=== PATIENT | male | born 1970 | race Caucasian/White ===

== ENCOUNTER 2020-06-02 06:07 | Emergency (ER) | payer BC, SELFPAY ==
[2020-06-02 06:08] VITALS: BP 182/103; PULSE 89; RESP 17; TEMP 36.6; O2SAT 97; BMI 25.9
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
[2020-06-02] MEDS: Smz/Tmp Ds Tablet 1 TABLET PO (06:26)
[2020-06-02] MEDS: Naproxen 500 MG Tablet PO (06:26)
[2020-06-02] MEDS: Cephalexin 250 MG Capsule 500 MG PO (06:26)
[2020-06-02] MEDS: BACITRACIN 15 GM Tube 1 APPLIC TOPICAL (06:35)
[2020-06-02 06:52] VITALS: BP 154/74; PULSE 78; RESP 18; O2SAT 98
== END 2020-06-02 06:52 | disposition home or self-care (01) ==
LOC: ED 06:33
PROVIDERS: Emergency Provider Emergency Medicine
DX: T22.20XA Burn of second degree of shoulder and upper limb, except wrist and hand, unspecified site, initial encounter (principal); X08.8XXA Exposure to other specified smoke, fire and flames, initial encounter; Y93.9 Activity, unspecified; Y92.9 Unspecified place or not applicable; F17.200 Nicotine dependence, unspecified, uncomplicated
CPT/HCPCS: 99283

== ENCOUNTER 2021-09-25 16:46 | Emergency (ER) | payer BC, SELFPAY ==
[2021-09-25 16:47] VITALS: BP 155/109; PULSE 114; RESP 16; TEMP 36.7; O2SAT 100; BMI 26.5
--- NOTE | 2021-09-25 17:07 | CT_ITS ---
EXAM: CT ABDOMEN AND PELVIS WITH INTRAVENOUS CONTRAST CLINICAL INDICATION: abdominal pain TECHNIQUE: Helically acquired images were obtained of the abdomen and pelvis with intravenous contrast. This CT exam was performed using one or more of the following dose reduction techniques: automated exposure control, adjustment of the mA and/or kV according to patient size, and/or use of iterative reconstruction technique. This report was created using [employer] report generation technology. CONTRAST: IV 100mL Isovue-370 COMPARISON: None. FINDINGS: LOWER THORAX: Small right pleural effusion. Mild cardiomegaly. Lung bases are clear. ABDOMEN: LIVER: Heterogeneous attenuation of the liver but no discrete focal mass. The portal vein enhances although there is some heterogeneous enhancement at the portal confluence, likely unopacified flow artifact. GALLBLADDER AND BILE DUCTS: Unremarkable. No calcified gallstones. No gallbladder distention or wall edema. No intra- or extrahepatic biliary ductal dilation. PANCREAS: Unremarkable. No focal cystic or solid mass. SPLEEN: Unremarkable. Normal size without focal cystic or solid mass. ADRENALS: Unremarkable. No nodules. KIDNEYS AND URETERS: Unremarkable. Normal renal size and position. No hydronephrosis. STOMACH AND BOWEL: Unremarkable. No stomach or bowel distention. No focal inflammatory change. PELVIS: APPENDIX: The appendix is not seen. BLADDER: Unremarkable. REPRODUCTIVE: Prostate calcifications. ABDOMEN and PELVIS: INTRAPERITONEAL SPACE: Moderate volume ascites. No free air. BONES/JOINTS: Degenerative changes of the lumbar spine, particularly at L5-S1. No suspicious lytic or blastic abnormality. SOFT TISSUES: Small inguinal hernias. VASCULATURE: See above. LYMPH NODES: Unremarkable. No enlarged lymph nodes. CT/Abdomen/Pelvis W IV Cont ONLY IMPRESSION: 1. Moderate volume ascites. 2. Small right pleural effusion. 3. Mild cardiomegaly. Electronically Signed: Jovany Saucedo MD ([place]) at 18:28 EST , Service support ,
--- NOTE | 2021-09-25 17:09 | EDS_ITS ---
HPI History of Present Illness Chief Complaint: Abd Pain Informant: patient Narrative Narrative: 50-year-old male presents the emergency room with abdominal pain. Patient states sometimes he has pain on his abdomen and sometimes it goes up high. He states that he feels bloated in his abdomen is firm. Symptoms have been present for about 7 days. Over the past couple days he has noted some constipation. He denies any urinary symptoms. States that the abdomen being bloated makes it hard for him to breathe and now he notes some lower extremity swelling. He denies any prior abdominal surgeries. He has not had colonoscopy. No recent weight loss. PFSH PFSH Home Medications cephalexin 500 mg PO Q6 #40 cap 06/02/20 [Rx Last Taken Unknown] naproxen 500 mg PO BID PRN PRN #20 tab 06/02/20 [Rx Last Taken Unknown] sulfamethoxazole-trimethoprim 1 tab PO BID #20 tab 06/02/20 [Rx Last Taken Unknown] furosemide [Lasix] 20 mg PO DAILY #30 tab 09/25/21 [Rx Last Taken Unknown] oxycodone-acetaminophen 1 tab PO Q6H PRN PRN 3 Days #12 tablet 09/25/21 [Rx Last Taken Unknown] potassium chloride 20 meq PO DAILY #30 tab 09/25/21 [Rx Last Taken Unknown] spironolactone [Aldactone] 25 mg PO DAILY #30 tab 09/25/21 [Rx Last Taken Unknown] Allergy/AdvReac Type Severity Reaction Status Date / Time No Known Allergies Allergy Verified 09/25/21 16:49 Social History (Updated 09/25/21 @ 17:[address] Prabhjot Starks, DO) Smoking Status: Current every day smoker tobacco type: cigarettes alcohol intake: current alcohol intake frequency: 3 or more drinks per day [facility] ED Constitutional Constitutional ED: Denies chills or weight loss Eyes Eyes: Denies change in vision or diplopia ENT ENT ED: Denies ear pain, rhinorrhea or sore throat Cardiovascular Cardiovascular: Denies chest pain, orthopnea, palpitations or racing heartbeat Respiratory/Chest Respiratory/Chest: Denies cough, dyspnea or orthopnea Gastrointestinal Gastrointestinal: Reports abdominal pain, constipation and nausea; Denies diarrhea or vomiting Genitourinary Genitourinary ED: Denies dysuria, hematuria or urinary frequency Musculoskeletal Musculoskeletal: Denies arthralgias or myalgias Integumentary Denies abscess or rash Neurologic Neurologic: Denies headache(s) or weakness Psychiatric Psychiatric: Denies anxiety, depression, suicidal ideation or suicidal thoughts Endocrine Endocrinology: Denies polydipsia, polyphagia or polyuria Allergic/Immunologic Allergic/Immunologic ED: Denies mouth swelling, tongue swelling or urticaria EXAM Physical Exam Const Vital Signs: 09/25/21 16:47 09/25/21 19:03 Temperature 98.0 F Temperature Source Temporal Pulse Rate 114 H 96 Respiratory Rate 16 16 Blood Pressure 155/109 H 127/97 H Blood Pressure Mean 124 107 Pulse Ox 100 100 Oxygen Delivery Method Room Air Room Air Positive well nourished and well developed General Appearance ED: well developed HEENT Reports normocephalic, head/scalp atraumatic, TM's clear and moist mucous membranes Negative for trauma Tympanic Membrane ED: Yes TM's clear Eyes PERRL and EOMs intact bilaterally Neck no lymphadenopathy, supple and no JVD Resp normal respiratory effort and clear to auscultation bilaterally Cardio regular rate and no murmurs Rate: tachycardic GI GI Narrative: Abdomen feels moderately distended and firm. Hypoactive bowel sounds. Tenderness left lower quadrant Back/Spine no CVA tenderness and normal ROM Extremity normal to inspection General Extremety ED: Negative for edema General Extremity: Negative for edema Neuro oriented x3 and CN's II-XII intact bilaterally Sensorium / Orientation: alert Motor Exam: strength 5/5 throughout Psych mental status grossly normal Mood & Affect: Negative for depressed or tearful Skin no rashes or lesions noted and no wounds MDM MDM MDM Narrative Medical decision making narrative: White count 5.8 with a hemoglobin 13.8 platelet count is 169. Glucose 239 with lactic acid of 2. Total bilirubin is 1.7 direct bilirubin 0.5. Alk phos is 86. Patient received pain and nausea medication. CT of the abdomen pelvis demonstrates ascites and a heterogeneous appearance to the liver. I spoke with her web operations specialist Dr. Kenny. He recommends starting the patient on Lasix K-Dur and Aldactone and he will see the patient this week in the office. I will also write for pain medication. Lab Data Attestation: I reviewed the patient's lab results. Labs: Laboratory Results - last 24 hr 09/25/21 09/25/21 09/25/21 17:30 17:30 17:30 WBC 5.8 RBC 5.00 Hgb 13.8 Hct 42.5 MCV 85.0 MCH 27.6 MCHC 32.5 RDW Std Deviation 40.9 RDW Coeff of Shaun 13.2 Plt Count 169 MPV 10.9 Immature Gran % (Auto) 0.300 Neut % (Auto) 69.5 Lymph % (Auto) 21.7 [place] % (Auto) 7.1 Eos % (Auto) 0.7 Baso % (Auto) 0.7 Absolute Neuts (auto) 4.0 Absolute Lymphs (auto) 1.25 Nucleated RBC % 0 Sodium 132 L Potassium 4.2 Chloride 99 Carbon Dioxide 25.0 Anion Gap 8 BUN 11 Creatinine 1.05 Estim Creat Clear Calc 88.84 Est GFR (MDRD) Af Amer 97 Est GFR (MDRD) Non-Af 80 BUN/Creatinine Ratio 10.5 Glucose 239 H Lactic Acid 2.0 Calcium 9.2 Total Bilirubin 1.70 H Direct Bilirubin 0.51 H AST 14 L ALT 11 L Alkaline Phosphatase 86 Total Protein 7.2 Albumin 3.5 Globulin 3.7 Lipase 97 Radiography Diagnostic Testing: Clinical Impression(s) from Imaging Studies Abdomen/Pelvis CT 09/25/21 17:07 IMPRESSION: 1. Moderate volume ascites. 2. Small right pleural effusion. 3. Mild cardiomegaly. Electronically Signed: Jovany Saucedo MD ([place]) at 18:28 EST , Service support , Discharge Plan Triage Chief Complaint: Abd Pain ED Provider: Prabhjot Starks Dx/Rx/DC Orders Clinical Impression: Abdominal ascites, Pleural effusion, Cirrhosis of liver Instructions: ED Ascites Prescriptions: New furosemide [Lasix] 20 mg tablet 20 mg PO DAILY Qty: 30 RF: 0 spironolactone [Aldactone] 25 mg tablet 25 mg PO DAILY Qty: 30 RF: 0 potassium chloride 20 mEq tablet extended release 20 meq PO DAILY Qty: 30 RF: 0 oxycodone-acetaminophen [oxycodone-acetaminophen] 1 TABLET tablet 1 tab PO Q6H PRN PRN (Reason: Pain) 3 Days Qty: 12 RF: 0 No Action sulfamethoxazole-trimethoprim 1 TABLET tablet 1 tab PO BID Qty: 20 RF: 0 cephalexin 500 MG capsule 500 mg PO Q6 Qty: 40 RF: 0 naproxen 500 MG tablet 500 mg PO BID PRN PRN (Reason: Pain Score 4-10/10) Qty: 20 RF: 0 Primary Care Provider: Care Physician,No Primary Referrals: Friend,Red, DO [STAFF PHYSICIAN] - As soon as possible Care Physician,No Primary [Primary Care Provider] - Disposition Disposition: Home, Self Care
[2021-09-25] MEDS: Ondansetron 4 MG/2 ML Vial IV (17:30)
[2021-09-25] MEDS: Morphine 4 MG/ML Syringe IV (17:30)
[2021-09-25] MEDS: 0.9% Normal Saline 1,000 ML 125 ML IV (17:30)
[2021-09-25 17:38] LABS: Absolute Lymphocyte Count 1.25 X10^3/uL (0.83-4.51); Basophil# 0.04 X10^3/uL; Basophil% 0.7 % (0-1); Eosinophil# 0.04 X10^3/uL; Eosinophils% 0.7 % (0-5); Hematocrit 42.5 % (40-54); Hemoglobin 13.8 g/dL (13.0-16.5); Lymphocyte # 1.25 X10^3/ul (0.83-4.51); Lymphocyte % 21.7 % (19-41); Mean Corp Hgb Conc 32.5 g/dL (32-36); Mean Corpuscular Hgb 27.6 pg (27.0-32.0); Mean Platelet Vol. 10.9 fl (6.2-12.0); Monocyte# 0.41 X10^3/uL; Monocyte% 7.1 % (0-10); NRBC Flagged by Analyzer 0 % (0-5); Neutrophil % 69.5 % (47-70); Platelet Count 169 K/mm3 (150-450); RBC Distribution Width CV 13.2 % (11.6-14.6); RBC Distribution Width SD 40.9 fl (35.1-43.9); White Blood Count 5.8 K/mm3 (4.4-11.0)
[2021-09-25 17:54] LABS: AST(SGOT) 14 U/L (15-37); Alanine Aminotransfer ALT/SGPT 11 U/L (16-61); Albumin, Serum 3.5 g/dL (3.2-5.0); Alkaline Phosphatase 86 U/L (45-117); Anion Gap 8 (5-15); BUN 11 mg/dL (7-18); BUN/Creat Ratio 10.5 RATIO (10-20); Bilirubin, Direct 0.51 mg/dL (0.00-0.30); Calcium,Total 9.2 mg/dL (8.5-10.1); Chloride 99 mmol/L (98-107); Creatinine, Serum 1.05 mg/dL (0.70-1.30); EST Glomerular Filtration Rate 80 mL/min (>60); Est Glom Filt Rate - Afr Amer 97 mL/min (>60); Estimated Creatinine Clearance 88.84 ml/min; Globulin 3.7 g/dL (2.2-4.2); Glucose 239 mg/dL (74-106); Lipase 97 U/L (73-393); Potassium 4.2 mmol/L (3.5-5.1); Protein, Total 7.2 g/dL (6.4-8.2); Sodium Level 132 mmol/L (136-145)
[2021-09-25 19:03] VITALS: BP 127/97; PULSE 96; RESP 16; O2SAT 100
[2021-09-25 20:35] LABS: Reflex Lactate? N
== END 2021-09-25 20:02 | disposition home or self-care (01) ==
PROVIDERS: Emergency Provider Emergency Medicine
DX: R18.8 Other ascites (principal); J90 Pleural effusion, not elsewhere classified; K74.60 Unspecified cirrhosis of liver; K59.00 Constipation, unspecified; F17.210 Nicotine dependence, cigarettes, uncomplicated
CPT/HCPCS: 74177; 80048; 80076; 83605; 83690; 85025; 96361; 96374; 96375; 99283; J7030; Q9967; A4216; J2405

== ENCOUNTER → 2021-09-30 16:47 | Outpatient (CLI) | payer BC, SELFPAY ==
[2021-09-30 17:10] LABS: Absolute Lymphocyte Count 1.08 X10^3/uL (0.83-4.51); Absolute Neutrophil Count 2.6 X10^3/uL (2.0-7.7); Basophil# 0.03 X10^3/uL; Basophil% 0.7 % (0-1); Eosinophil# 0.06 X10^3/uL; Eosinophils% 1.5 % (0-5); Hematocrit 40.6 % (40-54); Lymphocyte # 1.08 X10^3/ul (0.83-4.51); Lymphocyte % 26.7 % (19-41); Mean Corpuscular Hgb 27.4 pg (27.0-32.0); Mean Corpuscular Volume 85.7 fL (80-94); Mean Platelet Vol. 10.1 fl (6.2-12.0); Monocyte# 0.32 X10^3/uL; Monocyte% 7.9 % (0-10); NRBC Flagged by Analyzer 0 % (0-5); Neutrophil # 2.55 X10^3/uL (2.7-7.7); Platelet Count 167 K/mm3 (150-450); RBC Distribution Width CV 13.2 % (11.6-14.6); RBC Distribution Width SD 41.4 fl (35.1-43.9); Red Blood Count 4.74 M/mm3 (4.6-6.2); White Blood Count 4.1 K/mm3 (4.4-11.0)
[2021-09-30 17:29] LABS: International Normalized Ratio 1.2; Prothrombin Time (Protime)PT. 14.6 SECONDS (11.7-14.9)
[2021-09-30 17:30] LABS: Erythrocyte Sedimentation Rate 4 mm/hr (0-20)
[2021-09-30 17:45] LABS: AST(SGOT) 14 U/L (15-37); Alanine Aminotransfer ALT/SGPT 13 U/L (16-61); Albumin, Serum 3.6 g/dL (3.2-5.0); Alkaline Phosphatase 84 U/L (45-117); Anion Gap 7 (5-15); BUN 15 mg/dL (7-18); CRP 7.07 mg/L (0.0-3.0); Calcium,Total 9.2 mg/dL (8.5-10.1); Chloride 100 mmol/L (98-107); Creatinine, Serum 1.07 mg/dL (0.70-1.30); EST Glomerular Filtration Rate 78 mL/min (>60); Est Glom Filt Rate - Afr Amer 95 mL/min (>60); Globulin 3.7 g/dL (2.2-4.2); Glucose 165 mg/dL (74-106); LDH 222 U/L (87-241); Potassium 4.2 mmol/L (3.5-5.1); Protein, Total 7.3 g/dL (6.4-8.2); Sodium Level 134 mmol/L (136-145)
[2021-10-04 16:08] LABS: Anti-Centromere B Ab <0.2 AI (0.0-0.9); Anti-Chromatin <0.2 AI (0.0-0.9); Anti-Jo <0.2 AI (0.0-0.9); Anti-Scleroderma-70 AB <0.2 AI (0.0-0.9); RNP Ab <0.2 AI (0.0-0.9); SJOGREN'S Anti-SS-A test < 0.2 AI (0.0-0.9); SJOGREN'S Anti-SS-B test < 0.2 AI (0.0-0.9); Smith Ab <0.2 AI (0.0-0.9)
[2021-10-05 09:20] LABS: Anti-Mitochondrial AB <20.0 Units (0.0-20.0); Anti-dsDNA Ab <1 IU/mL (0-9)
[2021-10-07 00:06] LABS: Angiotensin Convert Enzyme 63 U/L (14-82); Ceruloplasmin 35.9 mg/dL (16.0-31.0); Cytoplasmic Ab (C-ANCA) <1:20 titer (Neg:<1:20); Dilute Prothrombin Time (dPT) 42.8 sec (0.0-47.6); Dilute Russell Viper Venom 38.5 sec (0.0-47.0); HEPATITIS B SURFACE AG Negative (Negative); Hepatitis A IgM Antibody Negative (Negative); Hepatitis B Core AB IgM Negative (Negative); Immunoglobulin A 252 mg/dL (90-386); Immunoglobulin E 75 IU/mL (6-495); Immunoglobulin G 993 mg/dL (603-1613); Immunoglobulin M 52 mg/dL (20-172); PTT-LA 34.2 sec (0.0-51.9); Protein S, Free 118 % (61-136); Thrombin Time 17.6 sec (0.0-23.0); dPT Confirm Ratio 0.88 Ratio (0.00-1.34)
[2021-10-07 10:26] LABS: Anti-Smooth Muscle ABS 5 Units (0-19); Antithrombin 3 Function 100 % (75-135); Copper, Serum or Plasma 156 ug/dL (69-132); Hep C Antibodies 0.1 s/co ratio (0.0-0.9); Perinuclear Ab (P-ANCA) <1:20 titer (Neg:<1:20); Protein S, Total 89 % (60-150)
[2021-10-07 10:27] LABS: Interpretation Comment: (.)
== END ==
PROVIDERS: Visit Provider Internal Medicine Gastroenterology
DX: K74.60 Unspecified cirrhosis of liver (principal)
CPT/HCPCS: 80053; 80074; 81241; 82164; 82390; 82525; 82784; 82785; 83516; 83615; 85025; 85300; 85305; 85306; 85610; 85652; 86140; 86225; 86235; 86256

== ENCOUNTER 2021-10-13 16:05 | Outpatient (CLI) | payer BC, SELFPAY ==
--- NOTE | 2021-10-13 16:08 | EKG12_ITS ---
Test Reason : PREOP Blood Pressure : / mmHG Vent. Rate : 099 BPM Atrial Rate : 099 BPM P-R Int : 176 ms QRS Dur : 104 ms QT Int : 388 ms P-R-T Axes : 071 014 089 degrees QTc Int : 497 ms Normal sinus rhythm Nonspecific T wave abnormality Prolonged QT Abnormal ECG Confirmed by HOMERO WHEELER, MYA ([id number]), general expeditor ROMY FUNG ([id number]) on 10/14/2021 10:49:29 AM Referred By: Red Kenny Confirmed By:MYA VALENTIN MD
== END 2021-10-13 23:59 | disposition short-term general hospital (02) ==
LOC: PSN 16:07
PROVIDERS: Referring Provider Internal Medicine Gastroenterology; Visit Provider Internal Medicine Gastroenterology
DX: K74.60 Unspecified cirrhosis of liver (principal); R18.8 Other ascites
CPT/HCPCS: 93005

== ENCOUNTER 2021-10-20 07:51 | Outpatient (CLI) | payer BC, SELFPAY ==
--- NOTE | 2021-10-20 07:53 | US_ITS ---
STUDY: ABDOMINAL ULTRASOUND - RIGHT UPPER QUADRANT REASON FOR VISIT: Male, 50 years old cirrhosis TECHNIQUE: Ultrasound evaluation of the right upper quadrant was performed with real-time and static lynne-scale imaging. TECHNICAL QUALITY: Adequate. COMPARISON: None. FINDINGS: Liver: The liver measures 16.7 cm. There is a heterogeneous echogenicity of the liver. The bile ducts are within normal limits. There is hepatic color flow. The direction of portal flow is hepatopetal. There is no demonstrated mass lesion. Gallbladder: Normal distended gallbladder. The gallbladder wall measures 2 mm. There is a negative sonographic Harris''s sign. There is no pericholecystic fluid. There are no gallstones. Small amount of sludge is seen in the gallbladder lumen. Common Bile Duct (C.B.D.): The common bile duct measures 3 mm. Pancreas: Normal size of the head, body of the pancreas. The tail portion is obscured due to overlying bowel gas. There is normal echogenicity of the pancreas. There is no demonstrated pancreatic mass or cyst. Right Kidney: Normal size of the right kidney. The right kidney measures 11 cm x 5.3 cm x 4.9 cm. Normal renal cortex. The right cortex measures 1.9 cm. There is no demonstrated renal mass or cyst. There is no right hydronephrosis. IMPRESSION: Small amount of sludge is seen in the gallbladder lumen. Electronically Signed: Carl Chiu MD at 14:04 EST , Service support , STUDY: ABDOMINAL ULTRASOUND - ELASTOGRAPHY REASON FOR VISIT: Male, 50 years old. History of cirrhosis. TECHNIQUE: Liver stiffness measurements were obtained on a rankur 85 ultrasound machine using a CA 1-7 probe following the SRU guidelines. 3 measurements were obtained using a 2-D-SWE method. The IQR/M was 6.8 % suggesting a quality data set. TECHNICAL QUALITY: Adequate. COMPARISON: Comparison is made with prior study done earlier today. FINDINGS: Liver: Heterogeneous appearance of the liver. Median liver stiffness measured 26 kPa. US/Abdomen Limited IMPRESSION: Liver stiffness measures 26 kPa compatible with F4 Metavir score. Electronically Signed: Carl Chiu MD at 14:06 EST , Service support ,
== END 2021-10-20 23:59 | disposition short-term general hospital (02) ==
LOC: US 07:52
PROVIDERS: Referring Provider Internal Medicine Gastroenterology; Visit Provider Internal Medicine Gastroenterology
DX: K74.60 Unspecified cirrhosis of liver (principal); R18.8 Other ascites
CPT/HCPCS: 76705; 76982

== ENCOUNTER 2021-10-22 10:47 | Inpatient (IN) | payer BC, SELFPAY ==
[2021-10-22] VITALS (15 sets, daily range): BP systolic 94–131; BP diastolic 52–95; PULSE 91–147; RESP 12–20; TEMP 36.3–36.9; O2SAT 98–100; BMI 24.3; BMI 24.5
--- NOTE | 2021-10-22 10:59 | EKG12_ITS ---
Test Reason : CHEST HEAVINESS Blood Pressure : / mmHG Vent. Rate : 142 BPM Atrial Rate : 284 BPM P-R Int : 000 ms QRS Dur : 094 ms QT Int : 272 ms P-R-T Axes : 265 -74 068 degrees QTc Int : 418 ms Atrial flutter Left axis deviation Abnormal ECG Confirmed by DANNY WHEELER, JENY ([id number]), publishing editor SEBASTIÁN GARAY ([id number]) on 10/25/2021 11:03:15 AM Referred By: RAINA/VAIBHAV Confirmed By:JENY DELGADO MD
--- NOTE | 2021-10-22 11:00 | EKG12_ITS ---
Test Reason : REPEAT Blood Pressure : / mmHG Vent. Rate : 099 BPM Atrial Rate : 297 BPM P-R Int : 000 ms QRS Dur : 102 ms QT Int : 354 ms P-R-T Axes : 000 067 096 degrees QTc Int : 454 ms Atrial flutter with variable A-V block ST & T wave abnormality, consider lateral ischemia Abnormal ECG Confirmed by DANNY WHEELER, JENY ([id number]), medical editor SEBASTIÁN GARAY ([id number]) on 10/25/2021 11:03:31 AM Referred By: RAINA Confirmed By:JENY DELGADO MD
[2021-10-22] MEDS: dilTIAZem 25 MG/5 ML Vial IV BOLUS (11:08)
--- NOTE | 2021-10-22 11:15 | RAD_ITS ---
STUDY: X-RAY CHEST REASON FOR EXAM: Male, 50 years old. Chest pain TECHNIQUE: Single AP portable view of the chest. COMPARISON: None. FINDINGS: EKG electrodes are seen. The lungs are clear and expanded. There is no demonstrated pleural abnormality. There is moderate cardiac enlargement. Normal mediastinum and fred. Normal visualized pulmonary arteries. Normal visualized aortic arch and descending thoracic aorta. Normal visualized thoracic spine. Normal visualized ribs, clavicles, and shoulders. There is no demonstrated abnormality of the visualized soft tissue structures of the upper abdomen. RAD/Chest 1 View (Portable) IMPRESSION: Cardiomegaly. Electronically Signed: Carl Chiu MD at 11:30 EST , Service support ,
[2021-10-22 11:17] LABS: Absolute Lymphocyte Count 1.26 X10^3/uL (0.83-4.51); Absolute Neutrophil Count 5.4 X10^3/uL (2.0-7.7); Basophil# 0.03 X10^3/uL; Basophil% 0.4 % (0-1); Eosinophil# 0.02 X10^3/uL; Eosinophils% 0.3 % (0-5); Hematocrit 41.9 % (40-54); Lymphocyte # 1.26 X10^3/ul (0.83-4.51); Lymphocyte % 17.4 % (19-41); Mean Corp Hgb Conc 33.4 g/dL (32-36); Mean Corpuscular Hgb 26.6 pg (27.0-32.0); Mean Corpuscular Volume 79.5 fL (80-94); Mean Platelet Vol. 11.1 fl (6.2-12.0); Monocyte# 0.51 X10^3/uL; NRBC Flagged by Analyzer 0 % (0-5); Neutrophil % 74.6 % (47-70); Platelet Count 116 K/mm3 (150-450); RBC Distribution Width CV 13.2 % (11.6-14.6); RBC Distribution Width SD 36.8 fl (35.1-43.9); Red Blood Count 5.27 M/mm3 (4.6-6.2); White Blood Count 7.2 K/mm3 (4.4-11.0)
[2021-10-22 11:31] LABS: D-Dimer Quantitative (DVT/PE) 1.46 FEU/ug/m (0.27-0.49)
--- NOTE | 2021-10-22 11:32 | EDS_ITS ---
HPI HPI - GI History of Present Illness Chief Complaint: Abd Pain Narrative Narrative: 50-year-old male presenting with chest pain. He states he feels like there is pressure in his chest. He also states that he is having trouble taking a deep breath due to his abdomen being able. History of cirrhosis and ascites. He has been seen by Dr. Kenny. He recently had a CT of the abdomen pelvis which showed ascites I did show concern for cardiomegaly and a small pleural effusion. Patient is on Lasix and spironolactone currently. He has a history of hypertension and hyperlipidemia. He denies cardiac history. Patient has not had fever, chills. His states he looks a little more jaundiced today. [facility] Medical History (Updated 10/22/21 @ 13:26 by ALINE Simmons) Abdominal ascites High cholesterol Hypertension Home Medications furosemide 20 mg tablet 40 mg PO DAILY #60 tab 09/30/21 [Rx Last Taken Unknown] spironolactone 25 mg tablet 50 mg PO DAILY #60 tab 09/30/21 [Rx Last Taken Unknown] Allergy/AdvReac Type Severity Reaction Status Date / Time No Known Allergies Allergy Verified 09/25/21 16:49 Family History (Updated 10/22/21 @ 13:23 by Vandana Bird NP-C) Father Myocardial infarction Heart disease Social History (Updated 10/22/21 @ 13:23 by Vandana Bird NP-C) Smokeless tobacco user: chewing tobacco alcohol intake: former year quit: 2020 substance use type: marijuana ROS ROS ED Constitutional Constitutional ED: Denies chills or fever(s) ENT ENT ED: Denies rhinorrhea or sore throat Cardiovascular Cardiovascular: Reports chest pain, palpitations and racing heartbeat Respiratory/Chest Respiratory/Chest: Reports dyspnea; Denies cough or sputum Gastrointestinal Gastrointestinal: Reports abdominal pain; Denies nausea or vomiting Genitourinary Genitourinary ED: Denies dysuria or hematuria Musculoskeletal Musculoskeletal: Denies arthralgias or myalgias Integumentary Reports other Details: Jaundice ; Denies Abrasions or rash Neurologic Neurologic: Denies headache(s) or paresthesias EXAM Physical Exam Const Vital Signs: 10/22/21 10:49 10/22/21 10:59 10/22/21 11:10 Temperature 97.3 F L Temperature Source Temporal Pulse Rate 147 H 146 H Respiratory Rate 18 20 H Blood Pressure 131/87 H 119/95 H Blood Pressure Mean 101 103 Pulse Ox 100 100 99 Oxygen Delivery Method Room Air Room Air Room Air 10/22/21 11:21 10/22/21 12:12 Temperature Temperature Source Pulse Rate 103 H 100 Respiratory Rate 18 Blood Pressure 98/68 Blood Pressure Mean 78 Pulse Ox 100 Oxygen Delivery Method Positive well nourished Constitutional Narrative: Noted to be tachycardic. HEENT Reports dry mucous membranes normocephalic and atraumatic Mouth ED: Yes dry mucous membranes Mouth: dry mucous membranes Eyes PERRL and EOMs intact bilaterally General Eye ED: Negative for scleral icterus Neck no lymphadenopathy and supple Resp normal respiratory effort and clear to auscultation bilaterally Cardio Rate: tachycardic GI GI Narrative: Generalized tenderness palpation. Abdomen is not distended Extremity full ROM General Extremety ED: Negative for edema or tenderness General Extremity: Negative for edema Neuro Sensorium / Orientation: alert, oriented to person, oriented to place and oriented to time Psych mental status grossly normal Skin General Skin Exam: jaundice Rashes: no rashes MDM MDM MDM Narrative Medical decision making narrative: Patient noted to be tachycardic on my evaluation. EKG was obtained which showed atrial flutter at a rate of 114 bpm on my interpretation. Patient given Cardizem and lab work is drawn. After Cardizem heart rate is down to 99 and repeat EKG obtained which shows atrial flutter with variable AV block on my interpretation. Patient given 25 Cardizem and his heart rate did slow down to around 100. He feels improved. He still having some abdominal pain. I reviewed his CT of his abdomen pelvis does not show a source. I question whether it is an gastric ulcer. He does not appear to have a surgical abdomen. CBC is unremarkable. PT/INR normal. Creatinine slightly elevated 1.49. Glucose was 299, sodium 128. No anion gap. Lipase is normal. Total bilirubin is elevated above baseline at 2.40 with a direct of 0.69 which is also elevated. Chest x-ray on my interpretation shows no acute cardiopulmonary process but does show cardiomegaly. Radiologist agree. D-dimer was elevated at 1.46 and the patient had a CTA of the chest?abdomen?pelvis which does not show any dissection, pulmonary emboli. It does show diffuse fatty infiltration of the liver as well as subcarinal and pretracheal lymph node measuring 1.6. High-sensitivity troponin is 33. Given patient's new onset atrial flutter I believe he needs to be admitted to the hospital. I did speak with Dr. Kenny as this is his patient I did discuss the abnormal liver enzymes has had increased. He stated that he would probably want to do an upper endoscopy on him to make sure he does not have any esophageal varices before he would be anticoagulated for his atrial flutter. This was discussed with the hospitalist on admission. Impression: 1. New onset atrial flutter 2. Acute kidney injury 3. Chest pain 4. Abdominal pain 5. Elevated bilirubin Lab Data Labs: Laboratory Results - last 24 hr 10/22/21 10/22/21 10/22/21 11:05 11:05 11:05 WBC 7.2 RBC 5.27 Hgb 14.0 Hct 41.9 MCV 79.5 L MCH 26.6 L MCHC 33.4 RDW Std Deviation 36.8 RDW Coeff of Shaun 13.2 Plt Count 116 L MPV 11.1 Immature Gran % (Auto) 0.300 Neut % (Auto) 74.6 H Lymph % (Auto) 17.4 L [place] % (Auto) 7.0 Eos % (Auto) 0.3 Baso % (Auto) 0.4 Absolute Neuts (auto) 5.4 Absolute Lymphs (auto) 1.26 Nucleated RBC % 0 PT 14.3 INR 1.2 APTT 26.1 D-Dimer Quant (PE/DVT) 1.46 H* Sodium 128 L Potassium 4.2 Chloride 95 L Carbon Dioxide 24.0 Anion Gap 9 BUN 23 H Creatinine 1.49 H Estim Creat Clear Calc 62.60 Est GFR (MDRD) Af Amer 65 Est GFR (MDRD) Non-Af 53 L BUN/Creatinine Ratio 15.4 Glucose 299 H Calcium 9.8 Magnesium 2.0 Total Bilirubin 2.40 H Direct Bilirubin 0.69 H AST 21 ALT 20 Alkaline Phosphatase 103 Troponin I High Sens 33 Total Protein 8.2 Albumin 4.2 Globulin 4.0 Lipase 82 Radiography Diagnostic Testing: Clinical Impression(s) from Imaging Studies Chest X-Ray 10/22/21 11:15 IMPRESSION: Cardiomegaly. Electronically Signed: Carl Chiu MD at 11:30 EST , Service support , Chest/Abdomen/Pelvis CTA 10/22/21 12:01 IMPRESSION: Small amount of ascites as described. Diffuse fatty infiltration of the liver. Minimally enlarged subcarinal and pretracheal lymph node measuring 1.6 cm. Electronically Signed: Carl Chiu MD at 12:27 EST , Service support , Discharge Plan Triage Chief Complaint: Abd Pain ED Provider: Miguel Angel Martini Dx/Rx/DC Orders Prescriptions: No Action spironolactone [Aldactone] 25 mg tablet 50 mg PO DAILY Qty: 60 RF: 2 furosemide [Lasix] 20 mg tablet 40 mg PO DAILY Qty: 60 RF: 2 Primary Care Provider: Care Physician,No Primary
[2021-10-22 11:35] LABS: International Normalized Ratio 1.2; Prothrombin Time (Protime)PT. 14.3 SECONDS (11.7-14.9)
[2021-10-22 11:39] LABS: AST(SGOT) 21 U/L (15-37); Alanine Aminotransfer ALT/SGPT 20 U/L (16-61); Albumin, Serum 4.2 g/dL (3.2-5.0); Alkaline Phosphatase 103 U/L (45-117); Anion Gap 9 (5-15); BUN 23 mg/dL (7-18); BUN/Creat Ratio 15.4 RATIO (10-20); Bilirubin, Direct 0.69 mg/dL (0.00-0.30); Calcium,Total 9.8 mg/dL (8.5-10.1); Chloride 95 mmol/L (98-107); Creatinine, Serum 1.49 mg/dL (0.70-1.30); EST Glomerular Filtration Rate 53 mL/min (>60); Est Glom Filt Rate - Afr Amer 65 mL/min (>60); Glucose 299 mg/dL (74-106); Lipase 82 U/L (73-393); Potassium 4.2 mmol/L (3.5-5.1); Protein, Total 8.2 g/dL (6.4-8.2); Sodium Level 128 mmol/L (136-145); Troponin-I HS 33 pg/mL (3.0-78.0)
[2021-10-22] MEDS: fentaNYL 100 MCG/2 ML Ampul 25 MCG IV (11:53)
[2021-10-22] MEDS: 0.9% Normal Saline 1,000 ML 999 ML IV (11:54)
--- NOTE | 2021-10-22 12:01 | CT_ITS ---
STUDY: CTA CHEST AND CTA ABDOMEN/PELVIS WITH CONTRAST REASON FOR EXAM: Male, 50 years old. Chest pain. cirrhosis RADIATION DOSAGE (If Supplied By Facility): CTDIvol = ( 21.21 ) mGy, DLP = ( 828.76 ) mGycm TECHNIQUE: The examination was performed with the intravenous administration of IV 100mL Isovue-370. Post-processing of the angiographic images was performed, with multiplanar reformation and 3D reconstruction. Individualized dose optimization techniques were used for this CT. COMPARISON: No relevant priors. FINDINGS: CTA Chest Normal enhancement of the main pulmonary artery and right and left pulmonary arteries. Normal enhancement of the bilateral peripheral pulmonary arteries. There is no demonstrated pulmonary embolism. Normal thoracic aorta and visualized great vessels. There is no demonstrated aortic dissection. Normal heart and pericardium. Minimally enlarged pretracheal and subcarinal lymph nodes measuring 1.6 cm. Normal hilar regions. Normal visualized trachea and bronchi. The lungs are well expanded. Normal pulmonary parenchyma. Normal pleura. Normal chest wall structures. Normal osseous structures. Normal visualized upper abdomen. CT Abdomen T Pelvis Minimal amount of perihepatic and perisplenic fluid. Diffuse fatty infiltration of the liver. Densities are seen within the gallbladder lumen. This may represent either sludge or tiny gallstones. There is evidence of a gallbladder wall thickening. Normal spleen. Normal pancreas. Normal bilateral adrenal glands. Minimal amount of the fluid in the right perirenal space. Small amount of fluid in the right paracolic gutter. Moderate amount of fluid is seen in the pelvis. Normal left kidney. Normal visualized stomach. Normal small intestine. Normal colon. The appendix is visualized and appears normal. Normal abdominal aorta. Normal inferior vena cava. There is borderline retroperitoneal lymphadenopathy with enlarged nodes no greater than 10mm in the short axis diameter. Mild degree of diffuse bladder wall thickening although bladder is not completely distended. There are prostatic calcifications. Normal abdominal wall. There are degenerative changes of the visualized lumbar spine. CT/CTA Chst, Abd, Pel W and/or WO IMPRESSION: Small amount of ascites as described. Diffuse fatty infiltration of the liver. Minimally enlarged subcarinal and pretracheal lymph node measuring 1.6 cm. Electronically Signed: Carl Chiu MD at 12:27 EST , Service support ,
[2021-10-22 13:12] LABS: Partial Thromboplast Time 26.1 Seconds (24.1-36.2)
--- NOTE | 2021-10-22 13:17 | HP.PCM_ITS ---
Documented by User: ALINE Simmons 10/22/21 13:34 HPI - General General Date of Admission: 10/22/21 Date of Service: 10/22/21 Chief Complaint: Abdominal pain HPI Narrative KIZZY DEWITT, is a 50 M who presents with complaints of abdominal pain. Patient states that is 10 out of 10 despite receiving 1 dose of fentanyl in the ER. Patient denies constipation or diarrhea however patient does report nausea and vomiting of mucus. Patient denies that emesis has any blood in it or is brown. Patient was also noted to be in atrial flutter with a rapid ventricular rate upon arrival and was given a Cardizem bolus. Patient denies history of any cardiac disease however he reports that his father at the age of 50 from a heart attack. Patient has been seeing Dr. Kenny outpatient for work-up of non alcoholic fatty liver disease. [facility] Medical History Abdominal ascites High cholesterol Hypertension Home Medications furosemide 20 mg tablet 40 mg PO DAILY #60 tab 09/30/21 [Rx Last Taken Unknown] spironolactone 25 mg tablet 50 mg PO DAILY #60 tab 09/30/21 [Rx Last Taken Unknown] Allergy/AdvReac Type Severity Reaction Status Date / Time No Known Allergies Allergy Verified 09/25/21 16:49 Family History Father Myocardial infarction Heart disease Surgical History no surgical history no surgical history Social History Smoking Status: Never smoker Smokeless tobacco user: chewing tobacco alcohol intake: former year quit: 2020 substance use type: marijuana ROS Constitutional Constitutional: Denies anorexia, chills, fatigue, fever(s) or weakness Cardiovascular Cardiovascular: Denies chest pain, edema, palpitations or syncope Respiratory/Chest Respiratory/Chest: Denies cough, shortness of breath at rest, shortness of breath with exertion or wheezing Gastrointestinal Gastrointestinal: Reports abdominal pain, nausea and vomiting; Denies constipation or diarrhea Genitourinary Genitourinary: Denies dysuria Musculoskeletal Musculoskeletal: Denies back pain, extremity pain, joint pain or joint stiffness Integumentary Integumentary: Denies dry skin Neurologic Neurologic: Denies abnormal gait, abnormal speech, confusion or focal weakness Psychiatric Psychiatric: Denies anxiety or depression Endocrine Endocrinology: Denies change in body appearance Vital Signs Vital Signs Vital Signs: 10/22/21 10:49 10/22/21 10:59 10/22/21 11:10 Temperature 97.3 F L Temperature Source Temporal Pulse Rate 147 H 146 H Respiratory Rate 18 20 H Blood Pressure 131/87 H 119/95 H Blood Pressure Mean 101 103 Pulse Ox 100 100 99 Oxygen Delivery Method Room Air Room Air Room Air 10/22/21 11:21 10/22/21 12:12 Temperature Temperature Source Pulse Rate 103 H 100 Respiratory Rate 18 Blood Pressure 98/68 Blood Pressure Mean 78 Pulse Ox 100 Oxygen Delivery Method Weight Weight: 170 lb Body Mass Index (BMI) 24.3 Physical Exam Const alert and oriented x3 General Appearance: cooperative HEENT normocephalic and head/scalp atraumatic Eyes conjunctivae normal and no scleral icterus Neck supple General: trachea midline Resp normal respiratory effort, normal air movement and clear to auscultation bilaterally Cardio S1 normal heart sound, S2 normal heart sound and peripheral pulses 2+ throughout Rate: tachycardic Rhythm: abnormal rhythm regularly irregular GI Auscultation: normoactive bowel sounds Palpation: tender epigastric and ascites Extremity normal capillary refill and no clubbing, cyanosis or edema General Extremity: no tenderness to palpation of joints or extremities Skin General Skin Exam: no breakdown and turgor normal Lesions: no lesions Rashes: no rashes Neuro no focal motor deficits and no sensory deficits noted Speech: speech normal Motor Exam: Negative for general weakness Psych thought process normal, cooperative and affect normal Appearance: appropriate Results Lab / Micro Data Result Diagrams: 10/22/21 11:05 10/22/21 11:05 Labs: Laboratory Results - last 24 hr 10/22/21 11:05: WBC 7.2, RBC 5.27, Hgb 14.0, Hct 41.9, MCV 79.5 L, MCH 26.6 L, MCHC 33.4, RDW Std Deviation 36.8, RDW Coeff of Shaun 13.2, Plt Count 116 L, MPV 11.1, Immature Gran % (Auto) 0.300, Neut % (Auto) 74.6 H, Lymph % (Auto) 17.4 L, Throckmorton % (Auto) 7.0, Eos % (Auto) 0.3, Baso % (Auto) 0.4, Absolute Neuts (auto) 5.4, Absolute Lymphs (auto) 1.26, Nucleated RBC % 0 10/22/21 11:05: Sodium 128 L, Potassium 4.2, Chloride 95 L, Carbon Dioxide 24.0, Anion Gap 9, BUN 23 H, Creatinine 1.49 H, Estim Creat Clear Calc 62.60, Est GFR (MDRD) Af Amer 65, Est GFR (MDRD) Non-Af 53 L, BUN/Creatinine Ratio 15.4, Glucose 299 H, Calcium 9.8, Magnesium 2.0, Total Bilirubin 2.40 H, Direct Bilirubin 0.69 H, AST 21, ALT 20, Alkaline Phosphatase 103, Troponin I High Sens 33, Total Protein 8.2, Albumin 4.2, Globulin 4.0, Lipase 82 10/22/21 11:05: PT 14.3, INR 1.2, APTT 26.1, D-Dimer Quant (PE/DVT) 1.46 H* Radiology Impression Chest X-Ray 10/22/21 11:15 IMPRESSION: Cardiomegaly. Electronically Signed: Carl Chiu MD at 11:30 EST , Service support , Chest/Abdomen/Pelvis CTA 10/22/21 12:01 IMPRESSION: Small amount of ascites as described. Diffuse fatty infiltration of the liver. Minimally enlarged subcarinal and pretracheal lymph node measuring 1.6 cm. Electronically Signed: Carl Chiu MD at 12:27 EST , Service support , Assessment & Plan Assessment/Plan (1) Abdominal pain: QUALIFIERS: Abdominal location: epigastric Qualified Code(s): R10.13 - Epigastric pain (2) Atrial flutter with rapid ventricular response: PLAN: 1. Atrial flutter with RVR -Admit to PCU -Metoprolol 25 mg p.o. twice daily initiated -Echocardiogram ordered -Vital signs per protocol -CBC, CMP, magnesium, phosphorus, TSH ordered for a.m. 2. Epigastric abdominal pain -Gastroenterology consulted, case discussed with Dr. Kenny by Dr. Garcia. -Patient initiated on pantoprazole twice daily -Dilaudid and Zofran ordered as needed 3. Hypotension -Multifactorial, possibly secondary to atrial flutter along with chronic use of furosemide and spironolactone -Patient initiated on normal saline 125 mL/h -Received 1 L bolus in ER 4. Hyponatremia and hypochloremia -Likely secondary to use of diuretics -CMP ordered daily -Normal saline 125 mL/h continuous 5. elevated D-dimer -CTA negative for pulmonary embolism 6. acute kidney injury -Likely secondary to chronic diuretic use -Furosemide on hold due to hypotension -CMP ordered daily trend 7. MILLAN -Due to hypotension patient furosemide will be held, continue spironolactone -Dr. Kenny following DVT prophylaxis-SCDs This patient was seen by Vandana Bird NP-C under the supervision of Dr. Garcia. 17 minutes spent in clinical coordination of patient's plan of care. Documented by User: Dr. Rolo Garcia DO 10/22/21 15:29 HPI - General General Date of Admission: 10/22/21 [facility] Medical History Abdominal ascites High cholesterol Hypertension Home Medications furosemide 20 mg tablet 40 mg PO DAILY #60 tab 09/30/21 [Rx Last Taken Unknown] spironolactone 25 mg tablet 50 mg PO DAILY #60 tab 09/30/21 [Rx Last Taken Unknown] Allergy/AdvReac Type Severity Reaction Status Date / Time No Known Allergies Allergy Verified 09/25/21 16:49 Family History Father Myocardial infarction Heart disease Surgical History no surgical history Social History Smoking Status: Never smoker Smokeless tobacco user: chewing tobacco alcohol intake: former year quit: 2020 substance use type: marijuana Results Lab / Micro Data Result Diagrams: 10/22/21 11:05 01/14/22 11:05 Charges/Coding Addendum Addendum: Patient was seen and examined independently of Nydia Bird, he came to the ER today at [facility] with complaints of mid epigastric pain, this started today. He denies any diarrhea. He is being seen by a gang drill press operator regarding fatty liver disease, he is scheduled to undergo a liver biopsy in the near future. On examination he appeared uncomfortable due to midepigastric abdominal pain. Vital signs as documented. Skin warm and dry and without overt rashes. Neck without JVD, neck was supple, trachea midline, thyroid was normal. Lungs clear bilaterally, normal air movement was noted. Heart exam notable for irregular rhythm, normal sounds and absence of murmurs, rubs or gallops. Abdomen moderately tender to palpation, no rebound abdominal tenderness was noted. Bowel sounds are present, abdomen is not distended. Extremities nonedematous, no cyanosis was noted, no clubbing was noted. Neuro: Cranial nerves II through XII are grossly intact, no focal motor deficits were noted, sensation to light touch and pinprick intact, motor exam 5/5 throughout. Psych: Patient is alert and oriented x3, he does not appear anxious or depressed, he does not appear agitated. Patient's EKG showed atrial flutter with a poorly controlled rate of approximately 120-130, labs showed a low sodium at 128, chloride was 95, creatinine was elevated at 1.49, BUN was 23, glucose was 299, bilirubin was elevated at 2.4, lipase was 82. Patient had a CTA of his chest and abdomen, small amount of ascites was noted, there is fatty infiltration of the liver, there were minimally enlarged subcarinal and peritracheal lymph nodes. Patient was given IV Cardizem in the emergency room and an attempt to slow his rate down, this was only partially successful, patient appeared comfortable however. Gastroenterology was contacted by the emergency room physician and agrees to see the patient in consultation for possible EGD. I also talked with gastroenterology about this. Patient will not be anticoagulated due concerns at the etiology of his abdominal pain could be peptic ulcer disease. Patient will be placed in observation status on PCU, rate limiting agents will be given to the patient, he will be n.p.o., gastroenterology will be consulted, he will have an echocardiogram. Impression: #1 new onset atrial flutter with rapid ventricular response-patient will be placed on a beta-sayra, other rate limiting medications may have to be used depending on how he responds to medications. Echocardiogram will be ordered, patient will not be anticoagulated at this time #2 midepigastric abdominal pain-etiology unclear, I am concerned that he could have peptic ulcer disease, patient will be placed on IV PPI, he will be seen in consultation by gastroenterology. Patient will be n.p.o. for now #3 fatty liver disease-patient is being worked up for possible cirrhosis at this time by gastroenterology. #4 elevated glucose-perhaps patient has undiagnosed type 2 diabetes, I will get a hemoglobin A1c on the patient if 1 has not already been obtained in the last couple of months in the medical record. I have reviewed Nydia Bird's history and physical including her medical assessment and plan of care and with the above additions endorse it. Total clinical time spent by myself on this patient: 58 minutes.
[2021-10-22] MEDS: Ondansetron 4 MG/2 ML Vial IV ×2 (13:33→16:33)
[2021-10-22] MEDS: fentaNYL 100 MCG/2 ML Ampul 50 MCG IV (13:33)
[2021-10-22 13:36] LABS: Troponin-I HS 35 pg/mL (3.0-78.0)
--- NOTE | 2021-10-22 15:01 | ECHOD_ITS ---
Reason For Study: AFIB/FLUTTER Procedure This was a 2D Doppler, Color Flow transthoracic echocardiogram. The exam was of adequate technical quality. Exam performed portable in patient room. Left Ventricle Severely dilated left ventricle. D shaped septum in systole and diastole. Severe global left ventricular systolic dysfunction. The estimated ejection fraction is 10 %. Unable to assess diastolic dysfunction. Right Ventricle Normal RV size. Normal systolic function. Atria The left atrium is mildly enlarged. The right atrium is mildly enlarged. No doppler evidence for ASD. Mitral Valve There is no mitral annular calcification. Mild papillary muscle dysfunction of the mitral valve. Moderately severe (3+) mitral valve insufficiency. Tricuspid Valve Normal tricuspid valve. Moderate (2+) tricuspid valve insufficiency. Right ventricular systolic pressure estimated to be 43 mmHg. Aortic Valve Trisinus/trileaflet aortic valve. Normal aortic valve. Trivial aortic valve insufficiency. Pulmonic Valve The pulmonic valve is not well visualized. Mild (1+) pulmonic valve insufficiency. Great Vessels Borderline enlarged aortic root. Pericardium/Pleural No pericardial effusion. MMode/2D Measurements & Calculations LVIDd: 6.5 cm IVSd: 0.80 cm Ao root diam: 3.9 cm LVIDs: 5.9 cm LVPWd: 0.78 cm RVDd: 4.6 cm FS: 9.4 % LAV(MOD-bp): 89.5 ml LVAd ap4: 50.0 cm2 LVAd ap2: 62.4 cm2 LAV(MOD-bp) Indexed: 45.8 ml/m2 LVLd ap4: 10.5 cm LVLd ap2: 10.4 cm LAV(MOD-sp2): 89.0 ml EDV(MOD-sp4): 194.4 ml EDV(MOD-sp2): 308.8 ml LAV(MOD-sp4): 90.2 ml EDV(sp4-el): 203.0 ml EDV(sp2-el): 317.3 ml LVAs ap4: 43.6 cm2 LVAs ap2: 55.6 cm2 LVLs ap4: 9.8 cm LVLs ap2: 10.3 cm ESV(MOD-sp4): 160.5 ml ESV(MOD-sp2): 255.8 ml ESV(sp4-el): 163.8 ml ESV(sp2-el): 254.5 ml EF(MOD-sp4): 17.4 % EF(MOD-sp2): 17.2 % EF(sp4-el): 19.3 % SV(MOD-sp4): 33.9 ml SV(MOD-sp2): 53.1 ml SV(sp4-el): 39.2 ml LA dimension(2D): 5.2 cm LA A4 area: 26.3 cm2 RA A4 area: 24.2 cm2 Doppler Measurements & Calculations Ao V2 max: 78.4 cm/sec LV V1 max: 56.8 cm/sec PA V2 max: 52.8 cm/sec Ao max P.6 mmHg LV V1 max P.4 mmHg PI end-d maynor: 137.9 cm/sec TR max maynor: 264.1 cm/sec TR max P.9 mmHg ECHO/Echo Complete Interpretation Summary Severely dilated left ventricle. Severe global left ventricular systolic dysfunction. The estimated ejection fraction is 10 %. D shaped septum in systole and diastole. The left atrium is mildly enlarged. The right atrium is mildly enlarged. Mild papillary muscle dysfunction of the mitral valve. Moderately severe (3+) mitral valve insufficiency. Moderate (2+) tricuspid valve insufficiency. Trivial aortic valve insufficiency. Mild (1+) pulmonic valve insufficiency. Borderline enlarged aortic root. Right ventricular systolic pressure estimated to be 43 mmHg. Unable to assess diastolic dysfunction. Ordering Physician: Vandana Bird Performed By: Annika Cole, RDCS, RVT
--- NOTE | 2021-10-22 15:12 | PCS.PANDOC ---
PANDEMIC DOCUMENTATION INITIATED: Date: 05/24/2021 Time: 190
[2021-10-22] MEDS: dilTIAZem 25 MG/5 ML Vial 15 MG IV BOLUS (15:51)
[2021-10-22] MEDS: Metoprolol Tartrate 25 MG Tablet 75 MG PO (15:51)
[2021-10-22] MEDS: 0.9% Normal Saline 1,000 ML 125 ML IV ×2 (16:01→23:08)
[2021-10-22] MEDS: Acetaminophen 325 MG Tablet 650 MG PO (17:21)
[2021-10-22] MEDS: Digoxin 250 MCG/ML Ampul 500 MCG IV (17:22)
--- NOTE | 2021-10-22 18:06 | US_ITS ---
STUDY: ABDOMINAL ULTRASOUND REASON FOR EXAM: Male, 50 years old. ABDOMINAL PAIN History, Signs T Symptoms Portal vein/hepatic vein thrombosis -- assess for cholecystitis too please TECHNIQUE: Transabdominal ultrasound was performed with real-time and static lynne scale imaging. COMPARISON: None. FINDINGS: Liver: There is increased echogenicity consistent with fatty infiltration. The bile ducts are within normal limits. There is hepatic color flow. The direction of portal flow is hepatopetal. There is no demonstrated mass lesion. Gallbladder: Normal distended gallbladder. The gallbladder wall measures 4.5 mm. There is a negative sonographic Harris''s sign. There is pericholecystic fluid. There are no gallstones. Common Bile Duct (C.B.D.): The common bile duct measures ( in mm): 6 Pancreas: Normal size of the head and body of the pancreas. There is increased echogenicity of the pancreas. There is no demonstrated pancreatic mass or cyst. Spleen: Normal size of the spleen. The spleen measures 11.5 cm. Right Kidney: Normal size of the right kidney. The right kidney measures 10.6 cm. .There is a normal cortex of the kidney. There is no demonstrated renal mass or cyst. There is no right hydronephrosis. Left Kidney: Normal size of the left kidney. The left kidney measures 9.7 cm. . There is a normal cortex of the left kidney. There is no demonstrated renal mass or cyst. There is no left hydronephrosis. 6.4 mm stone in the left renal cortex Aorta: 23 mm in maximal aortic diameter. I.V.C.: The IVC is patent. There is moderate ascites. US/Abdomen Complete IMPRESSION: There is moderate ascites. There is pericholecystic fluid. Thick gallbladder wall. No visualized portal vein thrombosis. Fatty liver Electronically Signed: Chet Shi MD at 20:27 EST , Service support ,
--- NOTE | 2021-10-22 18:12 | CON.PCM.GI_ITS ---
HPI Consult Data Date of Consult: 10/22/21 HPI Narrative HPI Narrative: 50 M who presents with complaints patient said that he was okay on Monday night. He said he only ate onion rings and went to bed. He says that he has not drink any alcohol since I have seen him in office. in excruciating pain. Is started with midepigastric pain has not moved and did not go to work he woke up. It did not go to his shoulder. It did not radiate to his back. He just is in the mid epigastric area. When he came into the ED for evaluation he was noted to be an atrial flutter with a heart rate to 150BPM. His biochemical analysis that showed mildly elevated D-dimer. A CT angio of the chest and abdomen pelvis did not show any abnormalities except for mild ascites around the liver. I had seen him on consultation approximately a month ago for new onset ascites and abdominal pain along with a distended abdomen with bilateral lower extremity edema. His CT scan that he had previously had showed large volume ascites around the liver and throughout the abdomen. He was started on Lasix 20 mg as spironolactone and his abdomen has been decreasing in size. A FibroScan was ordered and it showed an F4 consistent with possible cirrhosis. He is sched uled to get a liver biopsy on 10/25/2021. At this time he is having a lot of abdominal pain causing him to be in sinus tachycardia with intermittent atrial flutter. [facility] Medical History (Updated 10/22/21 @ 18:[address] Moon Friend, DO) Abdominal ascites High cholesterol Hypertension Home Medications furosemide 20 mg tablet 40 mg PO DAILY #60 tab 09/30/21 [Rx Last Taken 10/22/21] spironolactone 25 mg tablet 50 mg PO DAILY #60 tab 09/30/21 [Rx Last Taken 10/22/21] Allergy/AdvReac Type Severity Reaction Status Date / Time No Known Allergies Allergy Verified 09/25/21 16:49 Family History Father Myocardial infarction Heart disease Surgical History no surgical history Social History Smoking Status: Never smoker Smokeless tobacco user: chewing tobacco alcohol intake: former year quit: 2021 substance use type: marijuana ROS Gastrointestinal Gastrointestinal: Reports abdominal pain and cramping Physical Exam Const alert General Appearance: cooperative Orientation / Consciousness: oriented to person HEENT hearing grossly normal bilaterally Head and Scalp: normal to inspection Face and Sinus: face symmetric Nose: external nose normal Mouth: oral and palatal mucosa normal Eyes conjunctivae normal General Eye: normal appearance of both eyes Neck full ROM General: normal visual inspection Lymph Lymphatic: no lymphadenopathy noted Chest inspection of chest normal and palpation of chest normal Chest: symmetrical chest wall rise Resp normal respiratory effort Effort and Inspection: able to speak in complete sentences Cardio regular rate GI non-distended GI Narrative: Mildly tender to palpation in the midepigastric area Percussion: normal to percussion Rectal Exam: deferred Neuro Speech: speech normal Gait (Neuro): normal gait Lab / Micro Data Result Diagrams: 10/22/21 11:05 10/22/21 11:05 Labs: Laboratory Results - last 24 hr 10/22/21 11:05: WBC 7.2, RBC 5.27, Hgb 14.0, Hct 41.9, MCV 79.5 L, MCH 26.6 L, MCHC 33.4, RDW Std Deviation 36.8, RDW Coeff of Shaun 13.2, Plt Count 116 L, MPV 11.1, Immature Gran % (Auto) 0.300, Neut % (Auto) 74.6 H, Lymph % (Auto) 17.4 L, Bradley % (Auto) 7.0, Eos % (Auto) 0.3, Baso % (Auto) 0.4, Absolute Neuts (auto) 5.4, Absolute Lymphs (auto) 1.26, Nucleated RBC % 0 10/22/21 11:05: Sodium 128 L, Potassium 4.2, Chloride 95 L, Carbon Dioxide 24.0, Anion Gap 9, BUN 23 H, Creatinine 1.49 H, Estim Creat Clear Calc 62.60, Est GFR (MDRD) Af Amer 65, Est GFR (MDRD) Non-Af 53 L, BUN/Creatinine Ratio 15.4, Glu cose 299 H, Calcium 9.8, Magnesium 2.0, Total Bilirubin 2.40 H, Direct Bilirubin 0.69 H, AST 21, ALT 20, Alkaline Phosphatase 103, Troponin I High Sens 33, Total Protein 8.2, Albumin 4.2, Globulin 4.0, Lipase 82 10/22/21 11:05: PT 14.3, INR 1.2, APTT 26.1, D-Dimer Quant (PE/DVT) 1.46 H* 10/22/21 13:05: Troponin I High Sens 35 Radiology Impression Chest X-Ray 10/22/21 11:15 IMPRESSION: Cardiomegaly. Electronically Signed: Carl Chiu MD at 11:30 EST , Service support , Chest/Abdomen/Pelvis CTA 10/22/21 12:01 IMPRESSION: Small amount of ascites as described. Diffuse fatty infiltration of the liver. Minimally enlarged subcarinal and pretracheal lymph node measuring 1.6 cm. Electronically Signed: Carl Chui MD at 12:27 EST , Service support , Assessment & Plan Assessment/Plan (1) Atrial flutter with rapid ventricular response: PLAN: Patient is not on any anticoagulation at this time and his heart rate is ranging from 100-1 30. I think this is likely secondary to pain. I am unsure the etiology of his pain at this time. His heart rate and blood pressure being managed by the hospitalist team at this time. (2) Abdominal ascites: PLAN: His CTA of the abdomen pelvis today showed diffuse fatty infiltration of the liver consistent with alcoholic steatohepatitis. There is a small amount ascites. I will order an ultrasound with Dopplers to see if there is any signs of portal vein or hepatic vein thrombosis as the etiology of his new onset ascites. (3) Abdominal pain: QUALIFIERS: Abdominal location: epigastric Qualified Code(s): R10.13 - Epigastric pain PLAN: I will also get an ultrasound to see if there is any signs of cholecystitis because gallbladder wall thickening was noted on the CT angiography. I will also order an ESR, CRP, LDH and repeat his D-dimer. He may need an upper endoscopy to evaluate his upper GI tract. Him and his okay with this plan we will continue PPI therapy and pain control. (4) Alcoholic steatohepatitis: PLAN: He is becoming thrombocytopenic which is more consistent with cirrhosis. He is scheduled to get a liver biopsy. Charges/Coding Visit Charges Inpatient E&M: 49659 Init Hosp L3
[2021-10-22] MEDS: HYDROmorphone 0.5 MG/0.5 ML SYRINGE IV (18:15)
[2021-10-22 18:50] LABS: LDH 162 U/L (87-241)
[2021-10-22 18:52] LABS: Erythrocyte Sedimentation Rate 6 mm/hr (0-20)
[2021-10-22 19:33] LABS: Lactic Acid 4.5 mmol/L (0.4-1.9)
[2021-10-22 22:55] LABS: Reflex Lactate? Y
[2021-10-23] VITALS (23 sets, daily range): BP systolic 71–123; BP diastolic 48–93; PULSE 66–137; RESP 16–20; TEMP 35.8–36.8; O2SAT 90–100; BMI 24.5
[2021-10-23 00:11] LABS: Lactic Acid 2.7 mmol/L (0.4-1.9)
[2021-10-23] MEDS: Digoxin 250 MCG/ML Ampul 500 MCG IV ×2 (02:36→19:00)
[2021-10-23] MEDS: Metoprolol Tartrate 50 MG Tablet PO ×3 (04:23→21:53)
--- NOTE | 2021-10-23 05:55 | EKG12_ITS ---
Test Reason : AM EKG Blood Pressure : / mmHG Vent. Rate : 129 BPM Atrial Rate : 129 BPM P-R Int : 140 ms QRS Dur : 110 ms QT Int : 290 ms P-R-T Axes : 094 065 065 degrees QTc Int : 424 ms Atrial Flutter with 2:[address] and T wave abnormality Abnormal ECG When compared with ECG of 22-OCT-2021 11:31, MANUAL COMPARISON REQUIRED, DATA IS UNCONFIRMED Confirmed by HOMERO WHEELER, MYA ([id number]), social media editor SEBASTIÁN GARAY ([id number]) on 10/26/2021 9:26:57 AM Referred By: DR REESE Confirmed By:MYA VALENTIN MD
[2021-10-23] MEDS: 0.9% Normal Saline 1,000 ML 125 ML IV (06:02)
[2021-10-23] MEDS: dilTIAZem 25 MG/5 ML Vial 10 MG IV BOLUS (06:45)
[2021-10-23 06:49] LABS: Absolute Lymphocyte Count 1.68 X10^3/uL (0.83-4.51); Absolute Neutrophil Count 6.3 X10^3/uL (2.0-7.7); Basophil# 0.02 X10^3/uL; Basophil% 0.2 % (0-1); Eosinophil# 0.02 X10^3/uL; Eosinophils% 0.2 % (0-5); Hematocrit 36.8 % (40-54); Hemoglobin 12.6 g/dL (13.0-16.5); Lymphocyte # 1.68 X10^3/ul (0.83-4.51); Mean Corp Hgb Conc 34.2 g/dL (32-36); Mean Corpuscular Hgb 27.7 pg (27.0-32.0); Mean Corpuscular Volume 80.9 fL (80-94); Mean Platelet Vol. 12.3 fl (6.2-12.0); Monocyte# 0.75 X10^3/uL; Monocyte% 8.5 % (0-10); NRBC Flagged by Analyzer 0 % (0-5); Neutrophil # 6.32 X10^3/uL (2.7-7.7); Neutrophil % 71.8 % (47-70); Platelet Count 113 K/mm3 (150-450); RBC Distribution Width CV 13.4 % (11.6-14.6); RBC Distribution Width SD 38.6 fl (35.1-43.9); Red Blood Count 4.55 M/mm3 (4.6-6.2); White Blood Count 8.8 K/mm3 (4.4-11.0)
[2021-10-23 06:55] LABS: International Normalized Ratio 1.5; Partial Thromboplast Time 28.7 Seconds (24.1-36.2); Prothrombin Time (Protime)PT. 17.7 SECONDS (11.7-14.9)
[2021-10-23 07:21] LABS: Hemoglobin A1c 10.4 % (3.8-5.6)
[2021-10-23 07:23] LABS: ALB/GLOB Ratio 1.1 RATIO (0.9-2.4); AST(SGOT) 299 U/L (15-37); Alanine Aminotransfer ALT/SGPT 103 U/L (16-61); Albumin, Serum 3.3 g/dL (3.2-5.0); Alkaline Phosphatase 78 U/L (45-117); Anion Gap 10 (5-15); BUN 24 mg/dL (7-18); Calcium,Total 8.7 mg/dL (8.5-10.1); Chloride 102 mmol/L (98-107); Creatinine, Serum 1.71 mg/dL (0.70-1.30); EST Glomerular Filtration Rate 46 mL/min (>60); Est Glom Filt Rate - Afr Amer 55 mL/min (>60); Estimated Creatinine Clearance 54.55 ml/min; Globulin 3.1 g/dL (2.2-4.2); Glucose 209 mg/dL (74-106); Magnesium 1.9 mg/dL (1.6-2.6); Phosphorus 4.8 mg/dL (2.5-4.9); Potassium 5.2 mmol/L (3.5-5.1); Protein, Total 6.4 g/dL (6.4-8.2); Sodium Level 131 mmol/L (136-145); Thyroid Stim Hormone (TSH) 7.83 uIU/mL (0.358-3.74)
[2021-10-23] MEDS: Lactated Ringers 1,000 ML 100 ML IV (08:30)
--- NOTE | 2021-10-23 08:48 | OP.CCLET_ITS ---
06/16/2022 No Primary Care Physician Re : Upper GI endoscopy procedure for Que Acosta Dear Care Physician This procedure was performed on Saturday, October 23, 2021. My impressions and recommendations are as follows: Impressions : - Grade I esophageal varices. - Erythematous mucosa in the stomach. - Normal second portion of the duodenum. - No specimens collected. Recommendations : - Return patient to [facility] for [facility] care. - Continue present medications. My findings are described in the full procedure note, which is enclosed. If I can be of further assistance, please feel free to contact me at . Sincerely, Red Kenny, 10/23/2021 8:48:30 AM This report has been signed electronically.
--- NOTE | 2021-10-23 08:48 | OP.EGD_ITS ---
Patient Name: Que Acosta Procedure Date: 10/23/2021 7:50 AM Date of : 1970 Age: 50 Procedure: Upper GI endoscopy Indications: Epigastric abdominal pain Providers: Red Kenny DO Medicines: See the Anesthesia note for documentation of the administered medications Patient Profile: This is a 50 year old male. Refer to note in patient chart for documentation of history and physical. Patient has symptoms of acute epigastric abdominal pain. The symptoms first began 02,. Complications: No immediate complications. Procedure: Pre-Anesthesia Assessment: - Prior to the procedure, a History and Physical was performed, and patient medications and allergies were reviewed. The patient is competent. The risks and benefits of the procedure and the sedation options and risks were discussed with the patient. All questions were answered and informed consent was obtained. Patient identification and proposed procedure were verified by the physician in the pre-procedure area. Mental Status Examination: alert and oriented. Airway Examination: normal oropharyngeal airway and neck mobility. Respiratory Examination: clear to auscultation. CV Examination: normal. Prophylactic Antibiotics: The patient does not require prophylactic antibiotics. Prior Anticoagulants: The patient has taken no previous anticoagulant or antiplatelet agents. ASA Grade Assessment: II - A patient with mild systemic disease. After reviewing the risks and benefits, the patient was deemed in satisfactory condition to undergo the procedure. The anesthesia plan was to use moderate sedation / analgesia (conscious sedation). Immediately prior to administration of medications, the patient was re-assessed for adequacy to receive sedatives. The heart rate, respiratory rate, oxygen saturations, blood pressure, adequacy of pulmonary ventilation, and response to care were monitored throughout the procedure. The physical status of the patient was re-assessed after the procedure. After obtaining informed consent, the endoscope was passed under direct vision. Throughout the procedure, the patient's blood pressure, pulse, and oxygen saturations were monitored continuously. The Endoscope was introduced through the mouth, and advanced to the second part of duodenum. The upper GI endoscopy was accomplished without difficulty. The patient tolerated the procedure well. Moderate Sedation: Moderate (conscious) sedation was administered by the endoscopy nurse and supervised by the endoscopist. The following parameters were monitored: oxygen saturation, heart rate, blood pressure, and response to care. Total physician intraservice time was 15 minutes. Scope In: 8:30:52 AM Scope Out: 8:33:07 AM Total Procedure Duration Time 0 hours 2 minutes 15 seconds Findings: Grade I varices were found in the middle third of the esophagus. They were 5 mm in largest diameter. Localized moderately erythematous mucosa without bleeding was found in the stomach. The second portion of the duodenum was normal. Impression: - Grade I esophageal varices. - Erythematous mucosa in the stomach. - Normal second portion of the duodenum. - No specimens collected. Recommendation: - Return patient to [facility] for ongoing care. - Continue present medications. Procedure Code(s): --- Professional --- 18616, Esophagogastroduodenoscopy, flexible, transoral; diagnostic, including collection of specimen(s) by brushing or washing, when performed (separate procedure) 01619, 59, Moderate sedation services provided by the same physician or other qualified health palliative care nurse practitioner performing the diagnostic or therapeutic service that the sedation supports, requiring the presence of an independent trained observer to assist in the monitoring of the patient's level of consciousness and physiological status; initial 15 minutes of intraservice time, patient age 5 years or older CPT copyright 2017 [employer]. All rights reserved. The codes documented in this report are preliminary and upon avionics integration engineer review may be revised to meet current compliance requirements. Red Kenny DO 10/23/2021 8:48:30 AM This report has been signed electronically. Number of Addenda: 1 Note Initiated On: 10/23/2021 7:50 AM Addendum Number: 1 Addendum Date: 06/16/2022 6:14:22 AM MAC was used instead of moderate sedation for the patient. Red Kenny DO 06/16/2022 6:14:26 AM This report has been signed electronically.
[2021-10-23 09:03] LABS: Free T3 2.3 pg/mL (2.18-3.98); T4 Free Direct 1.17 ng/dL (0.76-1.46)
--- NOTE | 2021-10-23 10:15 | PN.HOSP_ITS ---
Documented by User: ALINE Simmons 10/23/21 10:27 Subjective Subjective Patient seen and examined. Patient lying in bed eyes closed. Patient just returned from EGD. Discussed with the patient per his laboratory findings patient has new onset diabetes as well as possible hypothyroidism. Patient hussein balized understanding and reports that he does not currently have a primary care provider. List of primary care providers in the area provided to patient and patient advised that he will need a primary care physician to follow to his chronic health conditions. Objective Data Objective Data Vital Signs: Vital Signs Temp Pulse Resp BP Pulse Ox 98.0 F 88 20 H 97/66 100 10/23/21 09:37 10/23/21 09:37 10/23/21 09:37 10/23/21 09:37 10/23/21 09:37 Oxygen Flow Rate (L/min) 10 Oxygen Delivery Method Room Air Weight: 175 lb 11.335 oz Body Mass Index (BMI) 24.5 Intake & Output: Intake and Output for Last 24 Hours 10/21/21 10/22/21 10/23/21 23:59 23:59 23:59 Intake Total 3030.83 / 3030.83 994.17 / 994.17 Output Total 700 / 700 Balance 2330.83 / 2330.83 994.17 / 994.17 Lab / Micro Data Result Diagrams: 10/23/21 12:14 10/23/21 12:14 Labs: Laboratory Results - last 24 hr 10/22/21 11:05: WBC 7.2, RBC 5.27, Hgb 14.0, Hct 41.9, MCV 79.5 L, MCH 26.6 L, MCHC 33.4, RDW Std Deviation 36.8, RDW Coeff of Shaun 13.2, Plt Count 116 L, MPV 11.1, Immature Gran % (Auto) 0.300, Neut % (Auto) 74.6 H, Lymph % (Auto) 17.4 L, Charles % (Auto) 7.0, Eos % (Auto) 0.3, Baso % (Auto) 0.4, Absolute Neuts (auto) 5.4, Absolute Lymphs (auto) 1.26, Nucleated RBC % 0 10/22/21 11:05: Sodium 128 L, Potassium 4.2, Chloride 95 L, Carbon Dioxide 24.0, Anion Gap 9, BUN 23 H, Creatinine 1.49 H, Estim Creat Clear Calc 62.60, Est GFR (MDRD) Af Amer 65, Est GFR (MDRD) Non-Af 53 L, BUN/Creatinine Ratio 15.4, Glucose 299 H, Calcium 9.8, Magnesium 2.0, Total Bilirubin 2.40 H, Direct Bilirubin 0.69 H, AST 21, ALT 20, Alkaline Phosphatase 103, Troponin I High Sens 33, Total Protein 8.2, Albumin 4.2, Globulin 4.0, Lipase 82 10/22/21 11:05: PT 14.3, INR 1.2, APTT 26.1, D-Dimer Quant (PE/DVT) 1.46 H* 10/22/21 11:05: ESR 6 10/22/21 13:05: Troponin I High Sens 35 10/22/21 13:05: C-React Prot Ext Range 27.10 H 10/22/21 13:05: Lactate Dehydrogenase 162 10/22/21 18:43: Lactic Acid 4.5 H* 10/22/21 23:16: Lactic Acid 2.7 H* 10/23/21 06:35: WBC 8.8, RBC 4.55 L, Hgb 12.6 L, Hct 36.8 L, MCV 80.9, MCH 27.7, MCHC 34.2, RDW Std Deviation 38.6, RDW Coeff of Shaun 13.4, Plt Count 113 L, MPV 12.3 H, Immature Gran % (Auto) 0.300, Neut % (Auto) 71.8 H, Lymph % (Auto) 19.0, Charles % (Auto) 8.5, Eos % (Auto) 0.2, Baso % (Auto) 0.2, Absolute Neuts (auto) 6.3, Absolute Lymphs (auto) 1.68, Nucleated RBC % 0 10/23/21 06:35: Sodium 131 L, Potassium 5.2 H, Chloride 102, Carbon Dioxide 19.0 L, Anion Gap 10, BUN 24 H, Creatinine 1.71 H, Estim Creat Clear Calc 54.55, Est GFR (MDRD) Af Amer 55 L, Est GFR (MDRD) Non-Af 46 L, BUN/Creatinine Ratio 14.0, Glucose 209 H, Calcium 8.7, Phosphorus 4.8, Magnesium 1.9, Total Bilirubin 2.20 H, AST 299 H, ALT 103 H, Alkaline Phosphatase 78, Total Protein 6.4, Albumin 3.3, Globulin 3.1, Albumin/Globulin Ratio 1.1, TSH 7.83 H 10/23/21 06:35: Hemoglobin A1c 10.4 H 10/23/21 06:35: PT 17.7 H, INR 1.5, APTT 28.7 10/23/21 06:35: Free T4 1.17, Free T3 pg/dL 2.3 Micro: Microbiology 10/23/21 09:03 Nasal Secretion SARS-CoV-2 Antigen (Rapid) - Final Radiography Diagnostic Testing: Radiology Impression Chest X-Ray 10/22/21 11:15 IMPRESSION: Cardiomegaly. Electronically Signed: Carl Chiu MD at 11:30 EST , Service support , Chest/Abdomen/Pelvis CTA 10/22/21 12:01 IMPRESSION: Small amount of ascites as described. Diffuse fatty infiltration of the liver. Minimally enlarged subcarinal and pretracheal lymph node measuring 1.6 cm. Electronically Signed: Carl Chiu MD at 12:27 EST , Service support , Abdomen Ultrasound 10/22/21 18:06 IMPRESSION: There is moderate ascites. There is pericholecystic fluid. Thick gallbladder wall. No visualized portal vein thrombosis. Fatty liver Electronically Signed: Chet Shi MD at 20:27 EST , Service support , Physical Exam Const alert and oriented x3 General Appearance: cooperative HEENT normocephalic and head/scalp atraumatic Eyes conjunctivae normal and no scleral icterus Neck supple General: trachea midline Resp normal respiratory effort, normal air movement and clear to auscultation bilaterally Cardio S1 normal heart sound, S2 normal heart sound and peripheral pulses 2+ throughout Rate: tachycardic Rhythm: abnormal rhythm regularly irregular GI Auscultation: normoactive bowel sounds Palpation: tender epigastric and ascites Extremity normal capillary refill and no clubbing, cyanosis or edema General Extremity: no tenderness to palpation of joints or extremities Skin General Skin Exam: no breakdown and turgor normal Lesions: no lesions Rashes: no rashes Neuro no focal motor deficits and no sensory deficits noted Speech: speech normal Motor Exam: Negative for general weakness Psych thought process normal, cooperative and affect normal Appearance: appropriate Assessment & Plan Assessment/Plan (1) Abdominal pain: QUALIFIERS: Abdominal location: epigastric Qualified Code(s): R10.13 - Epigastric pain (2) Atrial flutter with rapid ventricular response: PLAN: 1. Atrial flutter with RVR -Metoprolol increased to 50 mg p.o. daily -Echocardiogram ordered -Vital signs per protocol -CBC, CMP daily -Due to finding of esophageal varices patient will not be anticoagulated at this time, [id number] score 1 2. Epigastric abdominal pain -EGD completed this morning which showed grade 1 esophageal varices and erythematous mucosa of the stomach -Continue Protonix 3. New onset diabetes mellitus type 2 -Hemoglobin A1c 10.4 -Patient initiated on ACHS blood sugars with sliding scale insulin 4. elevated TSH -TSH 7.83 -T3 and T4 within normal limits -Advised patient to have his thyroid levels redrawn upon follow-up with PCP 5. Hypotension -Patient continues to be hypotensive despite IV fluids and holding Lasix -Continue normal saline 125 mL/h 6. Hyponatremia and hypochloremia -Likely secondary to use of diuretics, improved -CMP ordered daily -Normal saline 125 mL/h continuous 7. acute kidney injury -BUN and creatinine slightly worse than yesterday -Sinew to hold furosemide -CMP ordered daily trend 8. MILLAN -Due to hypotension patient furosemide will be held, continue spironolactone -Dr. Kenny following DVT prophylaxis-SCDs This patient was seen by YISEL SimmonsC under the supervision of Dr. Garcia. 12 minutes spent in clinical coordination of patient's plan of care. Documented by User: Dr. Rolo Garcia DO 10/23/21 16:40 Objective Data Lab / Micro Data Result Diagrams: 10/23/21 12:14 10/23/21 12:14 Charges/Coding Addendum Addendum: Patient was seen and examined independently from Nydia Bird, he still has some mid abdominal pain-he rates it a 3 out of 10 in severity, cardiology called me today with results of his echocardiogram-it shows global dysfunction of the left ventricle with an EF of 10%. I wanted to talk to the patient today about this and his was in the room and I explained this to her and the patient. We tried to transfer the patient to [facility] today but they were not excepting patients out of their region, has agreed to accept the patient but does not currently have a bed. Patient remains hemodynamically stable at this time, he goes back and forth out of flutter and into sinus rhythm. Patient is having no shortness of breath or chest pain, I do not think I need cardiology involved the case at this point. I have decided not to add any cardiac medications other than rate limiting medications at this time due to concerns about blood pressure effects of the medication. On examination he appeared in good health and spirits. Vital signs as documented. Skin warm and dry and without overt rashes. Neck without JVD, neck was supple, trachea midline, thyroid was normal. Lungs clear bilaterally, normal air movement was noted. Heart exam notable for irregular rhythm, normal sounds and absence of murmurs, rubs or gallops. Abdomen unremarkable and without evidence of organomegaly, masses, or abdominal aortic enlargement. Bowel sounds are present, abdomen is not distended. Extremities nonedematous, no cyanosis was noted, no clubbing was noted. Neuro: Cranial nerves II through XII are grossly intact, no focal motor deficits were noted, sensation to light touch and pinprick intact, motor exam 5/5 throughout. Psych: Patient is alert and oriented x3, he does not appear anxious or depressed, he does not appear castro tated. I let Dr. Mehta know as well as Dr. Kenny know that the patient had a very poor ejection fraction. I have reviewed Nydia Bird's progress note including her medical assessment and plan of care and endorse it with the above additions. Clinical time spent on this patient by myself was 50 minutes. Visit Charges Inpatient E&M: 32758 Subs Hosp L3
[2021-10-23 11:30] LABS: Bedside Glucose 216 mg/dL (70-110)
[2021-10-23] MEDS: Insulin Lispro 100 UNIT/ML INSULN.PEN SC ×3 (11:56→21:56)
[2021-10-23] MEDS: 0.9% Normal Saline 1,000 ML 150 ML IV (12:08)
[2021-10-23] MEDS: Spironolactone 50 MG Tablet PO (12:10)
[2021-10-23 12:24] LABS: Absolute Neutrophil Count 7.7 X10^3/uL (2.0-7.7); Basophil# 0.01 X10^3/uL; Basophil% 0.1 % (0-1); Eosinophil# 0.01 X10^3/uL; Eosinophils% 0.1 % (0-5); Hematocrit 36.8 % (40-54); Hemoglobin 12.1 g/dL (13.0-16.5); Lymphocyte % 7.7 % (19-41); Mean Corp Hgb Conc 32.9 g/dL (32-36); Mean Corpuscular Hgb 26.9 pg (27.0-32.0); Mean Corpuscular Volume 81.8 fL (80-94); Mean Platelet Vol. 11.3 fl (6.2-12.0); Monocyte# 0.66 X10^3/uL; Monocyte% 7.2 % (0-10); NRBC Flagged by Analyzer 0 % (0-5); Neutrophil # 7.73 X10^3/uL (2.7-7.7); Neutrophil % 84.5 % (47-70); POSITIVE COUNT YES; Platelet Count 95 K/mm3 (150-450); RBC Distribution Width CV 13.6 % (11.6-14.6); RBC Distribution Width SD 39.5 fl (35.1-43.9); White Blood Count 9.2 K/mm3 (4.4-11.0)
[2021-10-23 12:32] LABS: Erythrocyte Sedimentation Rate 4 mm/hr (0-20)
[2021-10-23 12:38] LABS: ALB/GLOB Ratio 1.1 RATIO (0.9-2.4); AST(SGOT) 391 U/L (15-37); Alanine Aminotransfer ALT/SGPT 151 U/L (16-61); Albumin, Serum 3.3 g/dL (3.2-5.0); Alkaline Phosphatase 72 U/L (45-117); Amylase 23 U/L (25-115); Anion Gap 5 (5-15); BUN 26 mg/dL (7-18); Calcium,Total 8.7 mg/dL (8.5-10.1); Chloride 104 mmol/L (98-107); Creatinine, Serum 1.63 mg/dL (0.70-1.30); EST Glomerular Filtration Rate 48 mL/min (>60); Est Glom Filt Rate - Afr Amer 58 mL/min (>60); Estimated Creatinine Clearance 57.23 ml/min; Globulin 2.9 g/dL (2.2-4.2); Glucose 218 mg/dL (74-106); Lipase 58 U/L (73-393); Potassium 4.7 mmol/L (3.5-5.1); Protein, Total 6.2 g/dL (6.4-8.2); Sodium Level 132 mmol/L (136-145)
--- NOTE | 2021-10-23 14:34 | CASEMGMT ---
Addendum entered by Elodia Canales 10/25/21 10:16: Pt also provided with list of local PCP's. Radha FUENTES CM Original Note: According to the [facility] website, the following are in-network tertiary facilities: [facility], [place], [facility], [facility], [facility], [facility], [facility], and . Radha FUENTES CM
[2021-10-23 16:10] LABS: Bedside Glucose 189 mg/dL (70-110)
[2021-10-23 16:20] LABS: Reflex Lactate? Y
[2021-10-23 18:03] LABS: Lactic Acid 1.9 mmol/L (0.4-1.9)
[2021-10-23] MEDS: 0.9% Saline Lock 10 ML Syringe IV ×2 (19:12→21:54)
[2021-10-23 23:41] LABS: Bedside Glucose 206 mg/dL (70-110)
[2021-10-24] VITALS (10 sets, daily range): BP systolic 92–128; BP diastolic 62–96; PULSE 76–90; RESP 16; TEMP 36.1–36.9; O2SAT 98–100
[2021-10-24] MEDS: Insulin Lispro 100 UNIT/ML INSULN.PEN SC ×4 (06:38→21:45)
[2021-10-24 06:55] LABS: Bedside Glucose 213 mg/dL (70-110)
--- NOTE | 2021-10-24 07:55 | EX.PCM.CON.S ---
Assessment & Plan Assessment/Plan (1) Abdominal pain: QUALIFIERS: Abdominal location: epigastric Qualified Code(s): R10.13 - Epigastric pain PLAN: Is a 50-year-old male who presented with a acute, progressive predominantly epigastric abdominal pain. CT of the abdomen and pelvis with IV contrast was relatively unremarkable and seem to exclude an ischemic source for the patient's abdominal pain was in question given the patient's presenting lactic acidosis. Patient had a right upper quadrant ultrasound which showed some gallbladder wall thickening and pericholecystic fluid, but there is associated perihepatic and perisplenic fluid and a known history of some degree of CHF. Given the patient's localized epigastric pain, a lipase was drawn and this was normal. Gastroenterology's exam with EGD was also unremarkable. On my exam, patient had some tenderness with deep palpation in the right upper quadrant as well as epigastric and left lower quadrant pain. I did note that this tenderness seems to be inconsistent and incompletely localizing. Therefore, I suggested maintaining n.p.o. status and perform serial abdominal exams. Later yesterday I did examine the patient at approximately 1430 and he stated that he was 99% better and no longer had the presenting abdominal pain. He also expressed an appetite. Therefore hospitalist service initiated diet. With this spontaneous improvement, I shared with patient and his spouse that I felt it was unlikely acute cholecystitis or a critical bowel issue that was causing his pain. In the meantime, a echocardiogram was obtained for the patient's history of CHF and he was found to have an ejection fraction of 10%. Based on this severe cardiac dysfunction, hospitalist service was seeking immediate transfer to a tertiary care center. HPI Consult Data Date of Consult: 10/24/21 HPI Narrative HPI Narrative: KIZZY DEWITT, is a 50 M who presented to [facility] with acute, progressive abdominal pain for the last couple of days. Dr. Kenny of gastroenterology has been working the patient up for a possible diagnosis of liver cirrhosis related to remote history of alcoholism. Patient admits that he does not regularly see a doctor and is very preoccupied with his work. Dr. Kenny performed an EGD yesterday morning given patient's complaints of severe epigastric pain that seems rather localized presuming a possible peptic ulcer. No such finding was made and I was asked to see the patient thereafter given the persistent, severe nature of the patient's abdominal pain. I met the patient in the postanesthesia care unit and he is initially difficult to arouse. Once he did arouse he responded appropriately with questioning and confirm the above history. He stated that he had regular bowel movements several times a day and minimal nausea leading up to his presentation. [facility] Medical History (Updated 10/22/21 @ 18:[address] Moon Friend, DO) Abdominal ascites High cholesterol Hypertension Home Medications furosemide 20 mg tablet 40 mg PO DAILY #60 tab 09/30/21 [Rx Last Taken 10/22/21] spironolactone 25 mg tablet 50 mg PO DAILY #60 tab 09/30/21 [Rx Last Taken 10/22/21] Allergy/AdvReac Type Severity Reaction Status Date / Time No Known Allergies Allergy Verified 09/25/21 16:49 Family History Father Myocardial infarction Heart disease Surgical History no surgical history Social History Smoking Status: Never smoker Smokeless tobacco user: chewing tobacco alcohol intake: former year quit: 2020 substance use type: marijuana Physical Exam Const alert General Appearance: cooperative GI GI Narrative: No scars, nondistended, no fluid wave, tenderness with palpation deeply in the right upper quadrant, in the epigastrium, and the left lower quadrant, but the tenderness seems to be shifting and is inconsistently reported by the patient. Patient's abdomen is otherwise soft. Lab / Micro Data Result Diagrams: 10/23/21 12:14 10/23/21 12:14 Labs: Laboratory Results - last 24 hr 10/23/21 06:35: Free T4 1.17, Free T3 pg/dL 2.3 10/23/21 11:23: POC Glucose 216 H 10/23/21 12:14: WBC 9.2, RBC 4.50 L, Hgb 12.1 L, Hct 36.8 L, MCV 81.8, MCH 26.9 L, MCHC 32.9, RDW Std Deviation 39.5, RDW Coeff of Shaun 13.6, Plt Count 95 L, MPV 11.3, Immature Gran % (Auto) 0.400, Neut % (Auto) 84.5 H, Lymph % (Auto) 7.7 L, [place] % (Auto) 7.2, Eos % (Auto) 0.1, Baso % (Auto) 0.1, Absolute Neuts (auto) 7.7, Absolute Lymphs (auto) 0.70 L, Nucleated RBC % 0, ESR 4 10/23/21 12:14: Sodium 132 L, Potassium 4.7, Chloride 104, Carbon Dioxide 23.0, Anion Gap 5, BUN 26 H, Creatinine 1.63 H, Estim Creat Clear Calc 57.23, Est GFR (MDRD) Af Amer 58 L, Est GFR (MDRD) Non-Af 48 L, BUN/Creatinine Ratio 16.0, Glucose 218 H, Calcium 8.7, Total Bilirubin 2.20 H, AST 391 H, ALT 151 H, Alkaline Phosphatase 72, C-React Prot Ext Range 51.60 H, Total Protein 6.2 L, Albumin 3.3, Globulin 2.9, Albumin/Globulin Ratio 1.1, Amylase 23 L, Lipase 58 L 10/23/21 12:14: Lactic Acid 2.0 10/23/21 16:07: POC Glucose 189 H 10/23/21 17:32: Lactic Acid 1.9 10/23/21 21:47: POC Glucose 206 H 10/24/21 06:36: POC Glucose 213 H Micro: Microbiology 10/23/21 09:03 Nasal Secretion SARS-CoV-2 Antigen (Rapid) - Final Radiology Impression Echocardiogram 10/22/21 15:01 Interpretation Summary Severely dilated left ventricle. Severe global left ventricular systolic dysfunction. The estimated ejection fraction is 10 %. D shaped septum in systole and diastole. The left atrium is mildly enlarged. The right atrium is mildly enlarged. Mild papillary muscle dysfunction of the mitral valve. Moderately severe (3+) mitral valve insufficiency. Moderate (2+) tricuspid valve insufficiency. Trivial aortic valve insufficiency. Mild (1+) pulmonic valve insufficiency. Borderline enlarged aortic root. Right ventricular systolic pressure estimated to be 43 mmHg. Unable to assess diastolic dysfunction. Ordering Physician: Vandana Bird Performed By: Annika Cole, SHIRA, RVT Charges/Coding Visit Charges Inpatient E&M: 93077 Init Hosp L2
[2021-10-24] MEDS: Metoprolol Tartrate 50 MG Tablet PO ×2 (09:18→21:42)
[2021-10-24] MEDS: Spironolactone 50 MG Tablet PO (09:18)
[2021-10-24] MEDS: 0.9% Saline Lock 10 ML Syringe IV ×5 (09:19→23:16)
--- NOTE | 2021-10-24 09:29 | PN.HOSP_ITS ---
Documented by User: ALINE Simmons 10/24/21 09:37 Subjective Subjective Patient seen and examined. Patient laying in bed sleeping upon arrival to room. Patient awakened and discussed with patient plan of care to which he was agreeable. Objective Data Objective Data Vital Signs: Vital Signs Temp Pulse Resp BP Pulse Ox 97.4 F L 80 16 108/76 99 10/24/21 09:09 10/24/21 09:18 10/24/21 09:09 10/24/21 09:18 10/24/21 09:09 Oxygen Flow Rate (L/min) 2 Oxygen Delivery Method Room Air Weight: 176 lb 2.389 oz Body Mass Index (BMI) 24.5 Intake & Output: Intake and Output for Last 24 Hours 10/22/21 10/23/21 10/24/21 23:59 23:59 23:59 Intake Total 3030.83 / 3030.83 2880.42 / 2880.42 Output Total 700 / 700 Balance 2330.83 / 2330.83 2880.42 / 2880.42 Lab / Micro Data Result Diagrams: 10/24/21 10:35 10/24/21 10:35 Labs: Laboratory Results - last 24 hr 10/23/21 11:23: POC Glucose 216 H 10/23/21 12:14: WBC 9.2, RBC 4.50 L, Hgb 12.1 L, Hct 36.8 L, MCV 81.8, MCH 26.9 L, MCHC 32.9, RDW Std Deviation 39.5, RDW Coeff of Shaun 13.6, Plt Count 95 L, MPV 11.3, Immature Gran % (Auto) 0.400, Neut % (Auto) 84.5 H, Lymph % (Auto) 7.7 L, [place] % (Auto) 7.2, Eos % (Auto) 0.1, Baso % (Auto) 0.1, Absolute Neuts (auto) 7.7, Absolute Lymphs (auto) 0.70 L, Nucleated RBC % 0, ESR 4 10/23/21 12:14: Sodium 132 L, Potassium 4.7, Chloride 104, Carbon Dioxide 23.0, Anion Gap 5, BUN 26 H, Creatinine 1.63 H, Estim Creat Clear Calc 57.23, Est GFR (MDRD) Af Amer 58 L, Est GFR (MDRD) Non-Af 48 L, BUN/Creatinine Ratio 16.0, Glucose 218 H, Calcium 8.7, Total Bilirubin 2.20 H, AST 391 H, ALT 151 H, Alkaline Phosphatase 72, C-React Prot Ext Range 51.60 H, Total Protein 6.2 L, Albumin 3.3, Globulin 2.9, Albumin/Globulin Ratio 1.1, Amylase 23 L, Lipase 58 L 10/23/21 12:14: Lactic Acid 2.0 10/23/21 16:07: POC Glucose 189 H 10/23/21 17:32: Lactic Acid 1.9 10/23/21 21:47: POC Glucose 206 H 10/24/21 06:36: POC Glucose 213 H Micro: Microbiology 10/23/21 09:03 Nasal Secretion SARS-CoV-2 Antigen (Rapid) - Final Radiography Diagnostic Testing: Radiology Impression Echocardiogram 10/22/21 15:01 Interpretation Summary Severely dilated left ventricle. Severe global left ventricular systolic dysfunction. The estimated ejection fraction is 10 %. D shaped septum in systole and diastole. The left atrium is mildly enlarged. The right atrium is mildly enlarged. Mild papillary muscle dysfunction of the mitral valve. Moderately severe (3+) mitral valve insufficiency. Moderate (2+) tricuspid valve insufficiency. Trivial aortic valve insufficiency. Mild (1+) pulmonic valve insufficiency. Borderline enlarged aortic root. Right ventricular systolic pressure estimated to be 43 mmHg. Unable to assess diastolic dysfunction. Ordering Physician: Vandana Bird Performed By: Annika Cole, SHIRA, RVT Physical Exam Const alert and oriented x3 General Appearance: cooperative HEENT normocephalic and head/scalp atraumatic Eyes conjunctivae normal and no scleral icterus Neck supple General: trachea midline Resp normal respiratory effort, normal air movement and clear to auscultation bilaterally Cardio S1 normal heart sound, S2 normal heart sound and peripheral pulses 2+ throughout Rate: tachycardic Rhythm: abnormal rhythm regularly irregular GI Auscultation: normoactive bowel sounds Palpation: tender epigastric and ascites Extremity normal capillary refill and no clubbing, cyanosis or edema General Extremity: no tenderness to palpation of joints or extremities Skin General Skin Exam: no breakdown and turgor normal Lesions: no lesions Rashes: no rashes Neuro no focal motor deficits and no sensory deficits noted Speech: speech normal Motor Exam: Negative for general weakness Psych thought process normal, cooperative and affect normal Appearance: appropriate Assessment & Plan Assessment/Plan (1) Abdominal pain: QUALIFIERS: Abdominal location: epigastric Qualified Code(s): R10.13 - Epigastric pain (2) Atrial flutter with rapid ventricular response: PLAN: 1. Atrial flutter with RVR -Continue metoprolol 50 mg twice daily -Echocardiogram EF of 10% with severe global left ventricular systolic dysfunction -Vital signs per protocol -CBC, CMP daily -Due to finding of esophageal varices patient will not be anticoagulated at this time, [id number] score 1 2. Epigastric abdominal pain -EGD completed, showed grade 1 esophageal varices and erythematous mucosa of the stomach -Continue Protonix 3. New onset diabetes mellitus type 2 -Hemoglobin A1c 10.4 -Continue ACHS blood sugars with sliding scale insulin 4. elevated TSH -TSH 7.83 -T3 and T4 within normal limits -Advised patient to have his thyroid levels redrawn upon follow-up with PCP 5. Hypotension -Resolved 6. Hyponatremia and hypochloremia -Likely secondary to use of diuretics, improved -CMP ordered daily 7. acute kidney injury -Continue to hold furosemide -BMP ordered daily trend 8. MILLAN -Due to hypotension patient furosemide will be held, continue spironolactone - Friend following DVT prophylaxis-SCDs This patient was seen by YISEL SimmonsC under the supervision of Dr. Garcia. 10 minutes spent in clinical coordination of patient's plan of care. Documented by User: Dr. Rolo Garcia DO 10/24/21 11:47 Objective Data Lab / Micro Data Result Diagrams: 10/24/21 10:35 10/24/21 10:35 Charges/Coding Addendum Addendum: Patient was seen and examined independently of Nydia Bird, patient is awaiting an open bed at for transfer there for further care. Patient does not complain of any chest discomfort or shortness of breath at this examiner. Patient states that his father's heart disease required him to have a bypass which she refused, the patient's father's age was in his late 40s. On examination he appeared in good health and spirits. Vital signs as documented. Skin warm and dry and without overt rashes. Neck without JVD, neck was supple, trachea midline, thyroid was normal. Lungs clear bilaterally, normal air movement was noted. Heart exam notable for irregular rhythm, normal sounds and absence of murmurs, rubs or gallops. Abdomen unremarkable and without evidence of organomegaly, masses, or abdominal aortic enlargement. Bowel sounds are present, abdomen is not distended. Extremities nonedematous, no cyanosis was noted, no clubbing was noted. Neuro: Cranial nerves II through XII are grossly intact, no focal motor deficits were noted, sensation to light touch and pinprick intact, motor exam 5/5 throughout. Psych: Patient is alert and oriented x3, he does not appear anxious or depressed, he does not appear agitated. Patient's rhythm appears to be well controlled at this time, he is on a beta- sayra and has received intermittent doses of digoxin. Patient's blood pressure this morning was 108/76. Impression #1 atrial flutter-it appears to be under control with rate limiting medications and digoxin. #2 cardiomyopathy with severe impairment of LV function-etiology unknown, patient will need transfer to tertiary care center for further investigation and probable cardiac catheterization. #3 nonalcoholic steatohepatitis-this will need confirmation with a liver biopsy I have reviewed Nydia Bird's progress note including her medical assessment and plan of care and endorse it. Total clinical time spent on this patient today by myself: 18 minutes Visit Charges Inpatient E&M: 24962 Subs Hosp L2
[2021-10-24 10:51] LABS: Absolute Neutrophil Count 4.6 X10^3/uL (2.0-7.7); Basophil# 0.01 X10^3/uL; Basophil% 0.2 % (0-1); Eosinophil# 0.07 X10^3/uL; Eosinophils% 1.1 % (0-5); Hematocrit 37.5 % (40-54); Hemoglobin 12.4 g/dL (13.0-16.5); Lymphocyte % 19.7 % (19-41); Mean Corp Hgb Conc 33.1 g/dL (32-36); Mean Corpuscular Hgb 26.8 pg (27.0-32.0); Mean Platelet Vol. 11.7 fl (6.2-12.0); Monocyte% 9.1 % (0-10); NRBC Flagged by Analyzer 0 % (0-5); Neutrophil % 69.6 % (47-70); POSITIVE COUNT YES; Platelet Count 98 K/mm3 (150-450); RBC Distribution Width CV 13.7 % (11.6-14.6); Red Blood Count 4.63 M/mm3 (4.6-6.2); White Blood Count 6.6 K/mm3 (4.4-11.0)
[2021-10-24 11:11] LABS: Bedside Glucose 231 mg/dL (70-110)
[2021-10-24 11:11] LABS: Anion Gap 9 (5-15); BUN 19 mg/dL (7-18); BUN/Creat Ratio 16.2 RATIO (10-20); Calcium,Total 8.7 mg/dL (8.5-10.1); Chloride 101 mmol/L (98-107); Creatinine, Serum 1.17 mg/dL (0.70-1.30); EST Glomerular Filtration Rate 71 mL/min (>60); Est Glom Filt Rate - Afr Amer 85 mL/min (>60); Estimated Creatinine Clearance 79.72 ml/min; Glucose 142 mg/dL (74-106); Potassium 4.1 mmol/L (3.5-5.1); Sodium Level 135 mmol/L (136-145)
[2021-10-24] MEDS: HYDROmorphone 0.5 MG/0.5 ML SYRINGE IV ×4 (11:11→23:15)
[2021-10-24 16:11] LABS: Bedside Glucose 163 mg/dL (70-110)
[2021-10-24 23:05] LABS: Bedside Glucose 162 mg/dL (70-110)
[2021-10-25] VITALS (14 sets, daily range): BP systolic 112–141; BP diastolic 86–100; PULSE 78–133; RESP 16–18; TEMP 35.8–36.6; O2SAT 97–100
[2021-10-25] MEDS: HYDROmorphone 0.5 MG/0.5 ML SYRINGE IV ×5 (03:11→19:54)
[2021-10-25] MEDS: 0.9% Saline Lock 10 ML Syringe IV ×6 (03:12→19:54)
[2021-10-25] MEDS: Insulin Lispro 100 UNIT/ML INSULN.PEN SC ×3 (06:32→16:22)
[2021-10-25 06:44] LABS: Absolute Lymphocyte Count 1.38 X10^3/uL (0.83-4.51); Absolute Neutrophil Count 3.8 X10^3/uL (2.0-7.7); Basophil# 0.02 X10^3/uL; Basophil% 0.3 % (0-1); Eosinophil# 0.12 X10^3/uL; Hematocrit 37.1 % (40-54); Hemoglobin 11.8 g/dL (13.0-16.5); Lymphocyte # 1.38 X10^3/ul (0.83-4.51); Lymphocyte % 22.6 % (19-41); Mean Corp Hgb Conc 31.8 g/dL (32-36); Mean Corpuscular Hgb 26.6 pg (27.0-32.0); Mean Corpuscular Volume 83.6 fL (80-94); Mean Platelet Vol. 11.7 fl (6.2-12.0); Monocyte# 0.73 X10^3/uL; NRBC Flagged by Analyzer 0 % (0-5); Neutrophil # 3.83 X10^3/uL (2.7-7.7); Neutrophil % 62.8 % (47-70); POSITIVE COUNT YES; Platelet Count 95 K/mm3 (150-450); RBC Distribution Width CV 13.7 % (11.6-14.6); Red Blood Count 4.44 M/mm3 (4.6-6.2); White Blood Count 6.1 K/mm3 (4.4-11.0)
[2021-10-25 06:50] LABS: Bedside Glucose 169 mg/dL (70-110)
[2021-10-25 07:02] LABS: Anion Gap 7 (5-15); BUN 14 mg/dL (7-18); BUN/Creat Ratio 14.2 RATIO (10-20); Calcium,Total 8.3 mg/dL (8.5-10.1); Chloride 98 mmol/L (98-107); Creatinine, Serum 0.98 mg/dL (0.70-1.30); EST Glomerular Filtration Rate 86 mL/min (>60); Est Glom Filt Rate - Afr Amer 104 mL/min (>60); Estimated Creatinine Clearance 95.18 ml/min; Glucose 173 mg/dL (74-106); Potassium 4.1 mmol/L (3.5-5.1); Sodium Level 131 mmol/L (136-145)
[2021-10-25] MEDS: Metoprolol Tartrate 50 MG Tablet PO ×2 (09:18→20:01)
[2021-10-25] MEDS: Spironolactone 50 MG Tablet PO (09:18)
--- NOTE | 2021-10-25 10:19 | RAD_ITS ---
STUDY: X-RAY - ABDOMEN/PELVIS REASON FOR EXAM: Male, 50 years old. Abdominal pain TECHNIQUE: Single AP view of the abdomen / pelvis. COMPARISON: None. FINDINGS: There is a moderate amount of colonic fecal material. The visualized liver, spleen and kidneys are grossly normal in size and morphology. There are calcified phleboliths in the pelvis. Normal visualized osseous structures. RAD/Abdomen Single View (Portable) IMPRESSION: Moderate amount of fecal material is seen in the colon. Electronically Signed: Carl Chiu MD at 10:56 EST , Service support ,
[2021-10-25 11:35] LABS: Bedside Glucose 258 mg/dL (70-110)
--- NOTE | 2021-10-25 11:35 | CASEMGMT ---
RN CM to room to meet with patient for initial transition planning/care coordination assessment. GINA MAKI introduced self and role at [facility]. Patient voices understanding and consents to assessment at this time. Patient is alert and oriented, lying in bed in no apparent distress and answers all questions appropriately. Care providers, pharmacy, and demographics verified/updated at this time. PCP: [facility] Local Provider Directory provided to patient. Specialists: Friend- GI Preferred [facility]: [facility] Insurance: [employer] Prescription Benefit: yes Living Will/HPOA: Patient denies having living will or HPOA. LNOK: , Allyssa Acosta Living Arrangements: Patient lives with and son in 4 story house with 2 steps to enter the home with a handrail present. Patient states independent with ADLs prior to hospitalization. 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 DME/HHC/SNF: Patient denies having any DME in home and denies need for any DME at this time. Denies previous HHC or SNF stays. 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 Patient has no concerns with going home at time of discharge. CM to follow for any discharge planning/needs. Patient voices no concerns/needs at this time. Advised patient to ask for CM if any questions/concerns/needs arise. Voices understanding. Plan: home
--- NOTE | 2021-10-25 13:09 | PN.HOSP_ITS ---
Documented by User: ALINE Simmons 10/25/21 13:12 Subjective Subjective Patient seen and examined. Patient lying in bed no distress noted. Patient still reports intermittent abdominal pain which is relieved with pain medication. KUB ordered Objective Data Objective Data Vital Signs: Vital Signs Temp Pulse Resp BP Pulse Ox 96.5 F L 133 H 18 125/87 H 97 10/25/21 08:19 10/25/21 09:32 10/25/21 08:19 10/25/21 09:18 10/25/21 08:19 Oxygen Flow Rate (L/min) 2 Oxygen Delivery Method Room Air Weight: 178 lb 2.136 oz Body Mass Index (BMI) 24.5 Intake & Output: Intake and Output for Last 24 Hours 10/23/21 10/24/21 10/25/21 23:59 23:59 23:59 Intake Total 2880.42 / 2880.42 1420 / 1420 110 / 110 Output Total 3 / 3 Balance 2880.42 / 2880.42 1417 / 1417 110 / 110 Lab / Micro Data Result Diagrams: 10/25/21 05:46 10/25/21 05:46 Labs: Laboratory Results - last 24 hr 10/24/21 16:05: POC Glucose 163 H 10/24/21 21:44: POC Glucose 162 H 10/25/21 05:46: WBC 6.1, RBC 4.44 L, Hgb 11.8 L, Hct 37.1 L, MCV 83.6, MCH 26.6 L, MCHC 31.8 L, RDW Std Deviation 40.0, RDW Coeff of Shaun 13.7, Plt Count 95 L, MPV 11.7, Immature Gran % (Auto) 0.300, Neut % (Auto) 62.8, Lymph % (Auto) 22.6, [place] % (Auto) 12.0 H, Eos % (Auto) 2.0, Baso % (Auto) 0.3, Absolute Neuts (auto) 3.8, Absolute Lymphs (auto) 1.38, Nucleated RBC % 0 10/25/21 05:46: Sodium 131 L, Potassium 4.1, Chloride 98, Carbon Dioxide 26.0, Anion Gap 7, BUN 14, Creatinine 0.98, Estim Creat Clear Calc 95.18, Est GFR (MDRD) Af Amer 104, Est GFR (MDRD) Non-Af 86, BUN/Creatinine Ratio 14.2, Glucose 173 H, Calcium 8.3 L 10/25/21 06:30: POC Glucose 169 H 10/25/21 11:15: POC Glucose 258 H Micro: Microbiology 10/23/21 09:03 Nasal Secretion SARS-CoV-2 Antigen (Rapid) - Final Radiography Diagnostic Testing: Radiology Impression KUB X-Ray 10/25/21 10:19 IMPRESSION: Moderate amount of fecal material is seen in the colon. Electronically Signed: Carl Chiu MD at 10:56 EST , Service support , Physical Exam Const alert and oriented x3 General Appearance: cooperative HEENT normocephalic and head/scalp atraumatic Eyes conjunctivae normal and no scleral icterus Neck supple General: trachea midline Resp normal respiratory effort, normal air movement and clear to auscultation bilaterally Cardio S1 normal heart sound, S2 normal heart sound and peripheral pulses 2+ throughout Rate: tachycardic Rhythm: abnormal rhythm regularly irregular GI Auscultation: normoactive bowel sounds Palpation: tender epigastric and ascites Extremity normal capillary refill and no clubbing, cyanosis or edema General Extremity: no tenderness to palpation of joints or extremities Skin General Skin Exam: no breakdown and turgor normal Lesions: no lesions Rashes: no rashes Neuro no focal motor deficits and no sensory deficits noted Speech: speech normal Motor Exam: Negative for general weakness Psych thought process normal, cooperative and affect normal Appearance: appropriate Assessment & Plan Assessment/Plan (1) Abdominal pain: QUALIFIERS: Abdominal location: epigastric Qualified Code(s): R10.13 - Epigastric pain (2) Atrial flutter with rapid ventricular response: PLAN: 1. Atrial flutter with RVR -Continue metoprolol 50 mg twice daily -Echocardiogram EF of 10% with severe global left ventricular systolic dysfunction -Vital signs per protocol -CBC, CMP daily -Patient currently waiting on transfer bed at in [place] for further cardiology work-up 2. Epigastric abdominal pain -EGD completed, showed grade 1 esophageal varices and erythematous mucosa of the stomach -Continue Protonix -KUB ordered, shows moderate amount of stool in colon, otherwise negative. 3. New onset diabetes mellitus type 2 -Hemoglobin A1c 10.4 -Continue ACHS blood sugars with sliding scale insulin 4. elevated TSH -TSH 7.83, T3 and T4 within normal limits -Advised patient to have his thyroid levels redrawn upon follow-up with PCP 5. Hyponatremia and hypochloremia -Likely secondary to use of diuretics, improved -CMP ordered daily 6. acute kidney injury -Resolved 7. MILLAN -Due to hypotension patient furosemide will be held, continue spironolactone - Friend following DVT prophylaxis-SCDs This patient was seen by Vandana Bird, WINIFRED-C under the supervision of Dr. Rubin. 12 minutes spent in clinical coordination of patient's plan of care. Documented by User: Dr. Marcelo Rubin, DO 10/25/21 17:47 Subjective Subjective Overall his abdominal pain is better but has been gradually getting worse which he rates about 7 out of 10. States that earlier it was more epigastric region now more suprapubic region. Objective Data Lab / Micro Data Result Diagrams: 10/25/21 05:46 10/25/21 05:46 Physical Exam Const alert Resp normal respiratory effort, no retractions and no use of accessory muscles Cardio regular rate, regular rhythm, S1 normal heart sound and S2 normal heart sound GI normal to inspection, nondistended, normoactive bowel sounds GI Narrative: Mild suprapubic tenderness to palpation. No rebound. Extremity normal to inspection Neuro Sensorium / Orientation: awake and alert Assessment & Plan Assessment/Plan (1) Abdominal pain: QUALIFIERS: Abdominal location: epigastric Qualified Code(s): R10.13 - Epigastric pain (2) Atrial flutter with rapid ventricular response: (3) Abdominal ascites: (4) MILLAN (nonalcoholic steatohepatitis): (5) Cardiomyopathy: (6) Thrombocytopenia: (7) Cirrhosis: (8) Alcoholic steatohepatitis: PLAN: Patient seen and examined independently. Data and vitals reviewed. I agree with the above note by the nurse practitioner. 1. A flutter with RVR Complicated by the patient's underlying cardiomyopathy. Patient has ejection fraction of 10%. Dr. Garcia spoke with Dr. Hogan, who recommended transfer to a tertiary facility for further assessment give his high risk with his cardiomyopathy and other medical comorbidities. continue metoprolol tartrate no OAC given thrombocytopenia 2. Cardiomyopathy unclear etiology ischemic v infiltrative v other EF 10% on spironolactone transfer to pending. Discussed with pt that unclear when this will be given the ongoing pandemic 3. Abdominal pain may be due to constipation add bowel regimen 4. DM2 uncontrolled a1c 10.4 add basal insulin continue SSI 5. possible cirrhosis will need Bx to confirm but also evaluate for other processes (hemochromatosis/amyloidosis) Greater than 30 minutes of which greater than 50% of time was reviewing records, discussing with the patient about his medical conditions, delay in his transfer Charges/Coding Visit Charges Inpatient E&M: 15081 Subs Hosp L3
[2021-10-25 16:26] LABS: Bedside Glucose 161 mg/dL (70-110)
--- NOTE | 2021-10-25 16:35 | CHAPLAIN ---
Type of Pastoral Visit _x__ Initial Visit ___ Follow-up Visit ___ On-call Visit ___ General Patient Visit ___ Spiritual Assessment ___ Family Conference ___ Bereavement ___ Rapid Response ___ Code Blue ___ Other (describe below) Pastoral Care Referral From _x__ Patient ___ Family ___ Nurse ___ Physician ___ Residential Mortgage Underwriter ___ Marine Steam Fitter Helper ___ Other (describe below) Sacrament/Intervention _x__ Active listening ___ Anointing ___ Hoahaoism ___ Bereavement ___ Communion ___ Danielle exploration ___ ___ Life review _x__ Prayer ___ Reconciliation ___ Sacrament of Sick ___ Supportive presence ___ Wedding ___ Other (describe below) Pastoral Comments patient is waiting for transfer and has waited since Monday; spouse is with him; uncertainties about the future are the concerns but otherwise in good spirits and well supported by staff and friends
--- NOTE | 2021-10-25 17:29 | PN_ITS ---
Subjective Subjective Patient is still awaiting transfer to outside institution. He rates his pain at a 4 out of 10. He is receiving IV pain medicines. He has not had a bowel movement in several days. Objective Data Objective Data Vital Signs: Vital Signs Temp Pulse Resp BP Pulse Ox 97.1 F L 89 18 112/86 H 99 10/25/21 15:38 10/25/21 15:38 10/25/21 15:38 10/25/21 15:38 10/25/21 16:19 Oxygen Flow Rate (L/min) 2 Oxygen Delivery Method Room Air Weight: 178 lb 2.136 oz Body Mass Index (BMI) 24.5 Intake & Output: Intake and Output for Last 24 Hours 10/23/21 10/24/21 10/25/21 23:59 23:59 23:59 Intake Total 2880.42 / 2880.42 1420 / 1420 510 / 510 Output Total 3 / 3 Balance 2880.42 / 2880.42 1417 / 1417 510 / 510 Lab / Micro Data Result Diagrams: 10/25/21 05:46 10/25/21 05:46 Labs: Laboratory Results - last 24 hr 10/24/21 21:44: POC Glucose 162 H 10/25/21 05:46: WBC 6.1, RBC 4.44 L, Hgb 11.8 L, Hct 37.1 L, MCV 83.6, MCH 26.6 L, MCHC 31.8 L, RDW Std Deviation 40.0, RDW Coeff of Shaun 13.7, Plt Count 95 L, MPV 11.7, Immature Gran % (Auto) 0.300, Neut % (Auto) 62.8, Lymph % (Auto) 22.6, [place] % (Auto) 12.0 H, Eos % (Auto) 2.0, Baso % (Auto) 0.3, Absolute Neuts (auto) 3.8, Absolute Lymphs (auto) 1.38, Nucleated RBC % 0 10/25/21 05:46: Sodium 131 L, Potassium 4.1, Chloride 98, Carbon Dioxide 26.0, Anion Gap 7, BUN 14, Creatinine 0.98, Estim Creat Clear Calc 95.18, Est GFR (MDRD) Af Amer 104, Est GFR (MDRD) Non-Af 86, BUN/Creatinine Ratio 14.2, Glucose 173 H, Calcium 8.3 L 01/17/22 06:30: POC Glucose 169 H 10/25/21 11:15: POC Glucose 258 H 10/25/21 16:21: POC Glucose 161 H Micro: Microbiology 10/23/21 09:03 Nasal Secretion SARS-CoV-2 Antigen (Rapid) - Final Radiography Diagnostic Testing: Radiology Impression KUB X-Ray 10/25/21 10:19 IMPRESSION: Moderate amount of fecal material is seen in the colon. Electronically Signed: Carl Chiu MD at 10:56 EST , Service support , Physical Exam Const alert General Appearance: cooperative Orientation / Consciousness: oriented to person HEENT hearing grossly normal bilaterally Head and Scalp: normal to inspection Face and Sinus: face symmetric Nose: external nose normal Mouth: oral and palatal mucosa normal Eyes conjunctivae normal General Eye: normal appearance of both eyes Neck full ROM General: normal visual inspection Lymph Lymphatic: no lymphadenopathy noted Chest inspection of chest normal and palpation of chest normal Chest: symmetrical chest wall rise Resp normal respiratory effort Effort and Inspection: able to speak in complete sentences Cardio regular rate GI non-distended Percussion: normal to percussion Rectal Exam: deferred Neuro Speech: speech normal Gait (Neuro): normal gait Assessment & Plan Assessment/Plan (1) Alcoholic steatohepatitis: PLAN: Patient has not had alcohol in several weeks. He has not been feeling well so he has not been drinking. He also has not had a drink since he was diagnosed with ascites. (2) Cirrhosis: PLAN: I am more leaning toward cirrhosis at this time. He was post have a liver biopsy yesterday to confirm however due to his severe cardiomyopathy with new onset CHF this was held. With his symptoms of new onset diabetes, possible cirrhosis, cardiomyopathy and jaundice it really makes me think that he could have an underlying diagnosis of hemochromatosis or an underlying infiltrative disease such as amyloidosis that can affect the liver and the heart. (3) Atrial flutter with rapid ventricular response: PLAN: Patient is doing well on rate control. (4) Abdominal ascites: PLAN: There is no sign of ascites at this time as he is responding very well to diuretic therapy. (5) Abdominal pain: QUALIFIERS: Abdominal location: epigastric Qualified Code(s): R10.13 - Epigastric pain PLAN: I suspect his abdominal pain is from constipation coupled with a possible atypical angina. Awaiting transfer to a tertiary care center. (6) Thrombocytopenia: PLAN: I suspect his thrombocytopenia is an acute phase reactant, coupled with possible underlying cirrhosis. Charges/Coding Visit Charges Inpatient E&M: 13701 [facility] H[facility] L3
[2021-10-25 17:45] LABS: Ferritin 870 ng/mL (26-388)
[2021-10-25] MEDS: Bisacodyl 5 MG Tablet 10 MG PO (18:10)
[2021-10-25] MEDS: Docusate Sodium 100 MG Capsule PO (20:01)
[2021-10-25 21:05] LABS: Bedside Glucose 142 mg/dL (70-110)
[2021-10-26] VITALS (10 sets, daily range): BP systolic 96–128; BP diastolic 75–100; PULSE 70–131; RESP 18; TEMP 36.6–36.7; O2SAT 98–100
[2021-10-26] MEDS: HYDROmorphone 0.5 MG/0.5 ML SYRINGE IV ×3 (02:29→12:48)
[2021-10-26] MEDS: 0.9% Saline Lock 10 ML Syringe IV ×3 (02:29→12:48)
[2021-10-26 06:34] LABS: Absolute Lymphocyte Count 1.22 X10^3/uL (0.83-4.51); Absolute Neutrophil Count 3.3 X10^3/uL (2.0-7.7); Basophil# 0.02 X10^3/uL; Basophil% 0.4 % (0-1); Eosinophils% 1.9 % (0-5); Lymphocyte # 1.22 X10^3/ul (0.83-4.51); Lymphocyte % 22.7 % (19-41); Mean Corp Hgb Conc 32.4 g/dL (32-36); Mean Corpuscular Hgb 26.8 pg (27.0-32.0); Mean Corpuscular Volume 82.8 fL (80-94); Mean Platelet Vol. 11.3 fl (6.2-12.0); Monocyte# 0.67 X10^3/uL; Monocyte% 12.5 % (0-10); NRBC Flagged by Analyzer 0.4 % (0-5); Neutrophil # 3.34 X10^3/uL (2.7-7.7); Neutrophil % 61.9 % (47-70); Platelet Count 102 K/mm3 (150-450); RBC Distribution Width CV 14.2 % (11.6-14.6); RBC Distribution Width SD 39.5 fl (35.1-43.9); Red Blood Count 4.47 M/mm3 (4.6-6.2); White Blood Count 5.4 K/mm3 (4.4-11.0)
[2021-10-26 06:47] LABS: Anion Gap 5 (5-15); BUN 10 mg/dL (7-18); BUN/Creat Ratio 12.1 RATIO (10-20); Calcium,Total 8.9 mg/dL (8.5-10.1); Chloride 101 mmol/L (98-107); Creatinine, Serum 0.83 mg/dL (0.70-1.30); EST Glomerular Filtration Rate 105 mL/min (>60); Est Glom Filt Rate - Afr Amer 127 mL/min (>60); Estimated Creatinine Clearance 112.38 ml/min; Glucose 141 mg/dL (74-106); Potassium 4.5 mmol/L (3.5-5.1); Sodium Level 132 mmol/L (136-145)
[2021-10-26 06:51] LABS: Bedside Glucose 139 mg/dL (70-110)
[2021-10-26] MEDS: Spironolactone 50 MG Tablet PO (09:09)
[2021-10-26] MEDS: Metoprolol Tartrate 50 MG Tablet PO (09:09)
[2021-10-26] MEDS: Docusate Sodium 100 MG Capsule PO (09:10)
[2021-10-26 09:44] LABS: Magnesium 1.9 mg/dL (1.6-2.6)
--- NOTE | 2021-10-26 10:10 | PN.HOSP_ITS ---
Subjective Subjective Patient seen and examined. Patient lying in bed no distress noted. Patient informed that I would call [facility] and update them on his current vs and increased runs of VTACH. Patient verbalized understanding and was agreeable. Objective Data Objective Data Vital Signs: Vital Signs Temp Pulse Resp BP Pulse Ox 98.1 F 131 H 18 127/89 H 100 10/26/21 09:07 10/26/21 09:42 10/26/21 09:07 10/26/21 09:07 10/26/21 09:07 Oxygen Flow Rate (L/min) 2 Oxygen Delivery Method Room Air Weight: 175 lb 7.807 oz Body Mass Index (BMI) 24.5 Intake & Output: Intake and Output for Last 24 Hours 10/24/21 10/25/21 10/26/21 23:59 23:59 23:59 Intake Total 1420 / 1420 1120 / 1180 290 / 290 Output Total 3 / 3 Balance 1417 / 1417 1120 / 1180 290 / 290 Lab / Micro Data Result Diagrams: 10/26/21 05:54 10/26/21 05:54 Labs: Laboratory Results - last 24 hr 10/25/21 05:46: Ferritin 870 H 10/25/21 11:15: POC Glucose 258 H 10/25/21 16:21: POC Glucose 161 H 10/25/21 20:08: POC Glucose 142 H 10/26/21 05:54: WBC 5.4, RBC 4.47 L, Hgb 12.0 L, Hct 37.0 L, MCV 82.8, MCH 26.8 L, MCHC 32.4, RDW Std Deviation 39.5, RDW Coeff of Shaun 14.2, Plt Count 102 L, MPV 11.3, Immature Gran % (Auto) 0.600, Neut % (Auto) 61.9, Lymph % (Auto) 22.7, [place] % (Auto) 12.5 H, Eos % (Auto) 1.9, Baso % (Auto) 0.4, Absolute Neuts (auto) 3.3, Absolute Lymphs (auto) 1.22, Nucleated RBC % 0.4 10/26/21 05:54: Sodium 132 L, Potassium 4.5, Chloride 101, Carbon Dioxide 26.0, Anion Gap 5, BUN 10, Creatinine 0.83, Estim Creat Clear Calc 112.38, Est GFR (MDRD) Af Amer 127, Est GFR (MDRD) Non-Af 105, BUN/Creatinine Ratio 12.1, Glucose 141 H, Calcium 8.9 10/26/21 05:54: Magnesium 1.9 10/26/21 06:33: POC Glucose 139 H Micro: Microbiology 10/23/21 09:03 Nasal Secretion SARS-CoV-2 Antigen (Rapid) - Final Radiography Diagnostic Testing: Radiology Impression KUB X-Ray 10/25/21 10:19 IMPRESSION: Moderate amount of fecal material is seen in the colon. Electronically Signed: Carl Chiu MD at 10:56 EST , Service support , Physical Exam Const alert and oriented x3 General Appearance: cooperative HEENT normocephalic and head/scalp atraumatic Eyes conjunctivae normal and no scleral icterus Neck supple General: trachea midline Resp normal respiratory effort, normal air movement, no retractions, no use of accessory muscles and clear to auscultation bilaterally Cardio regular rate, regular rhythm, S1 normal heart sound, S2 normal heart sound and peripheral pulses 2+ throughout Rate: tachycardic Rhythm: abnormal rhythm regularly irregular GI normal to inspection, nondistended, normoactive bowel sounds GI Narrative: Mild suprapubic tenderness to palpation. No rebound. Auscultation: normoactive bowel sounds Palpation: tender epigastric and ascites Extremity normal to inspection, normal capillary refill and no clubbing, cyanosis or edema General Extremity: no tenderness to palpation of joints or extremities Skin General Skin Exam: no breakdown and turgor normal Lesions: no lesions Rashes: no rashes Neuro no focal motor deficits and no sensory deficits noted Sensorium / Orientation: awake and alert Speech: speech normal Motor Exam: Negative for general weakness Psych thought process normal, cooperative and affect normal Appearance: appropriate Assessment & Plan Assessment/Plan (1) Cardiomyopathy: (2) Atrial flutter with rapid ventricular response: PLAN: 1. Atrial flutter with RVR -Metoprolol 50mg increased from BID to Q6H at the recommendation of accepting physician at -Echocardiogram EF of 10% with severe global left ventricular systolic dysfunction -Vital signs per protocol -CBC, CMP daily -Patient currently waiting on transfer bed at in [place] for further cardiology work-up, called transfer center and updated them regarding patient's increase non-sustained VTACH. 2. Epigastric abdominal pain -EGD completed, showed grade 1 esophageal varices and erythematous mucosa of the stomach -Continue Protonix -KUB ordered, shows moderate amount of stool in colon. Patient reports he has not had a BM in three days. Miralax x1 ordered. 3. New onset diabetes mellitus type 2 -Hemoglobin A1c 10.4 -Continue ACHS blood sugars with sliding scale insulin -BS improved since admission 4. Hyponatremia and hypochloremia -NA 132 -Hypochloremia resolved -CMP ordered. 5. MILLAN/Cirrhosis -Due to hypotension patient furosemide will be held, continue spironolactone -Dr. Kenny following, Labs ordered for further evaluation for hemochromatosis and amyloidosis. DVT prophylaxis-SCDs This patient was seen by ALINE Simmons under the supervision of Dr. Rubin. 16 minutes spent in clinical coordination of patient's plan of care.
[2021-10-26] MEDS: Insulin Lispro 100 UNIT/ML INSULN.PEN SC (11:12)
[2021-10-26] MEDS: Polyethylene Glycol 3350 17 GM PACKET PO (11:16)
[2021-10-26 11:25] LABS: Bedside Glucose 236 mg/dL (70-110)
--- NOTE | 2021-10-26 11:45 | NURSING ---
This RN gave report to Aleida FUENTES at [facility].
--- NOTE | 2021-10-26 11:48 | PCM.DC ---
Discharge Instructions Diet Discharge Diet: Low fat / Low cholesterol Follow Up Care Test Results: Test results from this visit will be discussed in further detail at your follow-up appointment, if applicable. Discharge Plan Admission Admit Date/Time: 10/23/21 15:50 Primary Reason for Your Visit: Atrial Flutter with RVR Attending Provider: Marcelo Rubin Primary Care Provider: Care Physician,No Primary Discharge Orders/Prescriptions Prescriptions: New spironolactone 50 mg Tablet 50 mg PO DAILY Qty: 0 RF: 0 Lantus Solostar U-100 Insulin 100 unit/mL (3 mL) Insulin Pen 10 units subcut QHS Qty: 0 RF: 0 hydromorphone 0.5 mg/0.5 mL Syringe 0.5 mg IV Q3H PRN PRN (Reason: Pain Score 6-10) Qty: 0 RF: 0 pantoprazole 40 mg Recon Soln 40 mg IV Q12 Qty: 0 RF: 0 metoprolol tartrate 50 mg Tablet 50 mg PO Q6H Qty: 0 RF: 0 insulin lispro [Humalog KwikPen Insulin] 100 unit/mL Insulin Pen See Protocol unit subcut ACHS Qty: 0 RF: 0 Discontinued furosemide [Lasix] 20 mg tablet 40 mg PO DAILY Qty: 60 RF: 2 No Action spironolactone [Aldactone] 25 mg tablet 50 mg PO DAILY Qty: 60 RF: 2 Referrals / Follow Up: Care Physician,No Primary [Primary Care Provider] - Disposition Disposition (needs filled in before D/C Order can be placed): [facility]
--- NOTE | 2021-10-26 11:55 | DS.PCM_ITS ---
Providers Date of Admission: 10/23/21 Primary Care Physician: Lara Primary Care Phys Consultations 10/22/21 15:01 Consult: Gastroenterology Routine Consulting Provider: Maria Victoria Gastroenter[facility] Reason for Consult: abdominal pain, MILLAN EMERGENT Consult: No MD Notified: Yes Date Notified: 10/22/21 Time Notified: 13:29 Method of Notification: Provider Initiated Reason For Visit: AFLUTTER WITH RVR Diagnosis Discharge Diagnosis (1) Cardiomyopathy: Status: Acute Code(s): I42.9 - Cardiomyopathy, unspecified (2) Atrial flutter with rapid ventricular response: Status: Acute Code(s): I48.92 - Unspecified atrial flutter Medications at Discharge Home Medications spironolactone 25 mg tablet 50 mg PO DAILY #60 tab 09/30/21 hydromorphone 0.5 mg IV Q3H PRN PRN #0 ml 10/26/21 insulin glargine [Lantus Solostar U-100 Insulin] 10 units SUBCUT QHS #0 ml 10/26/21 insulin lispro [Humalog KwikPen Insulin] See Protocol SUBCUT ACHS #0 ml 10/26/21 metoprolol tartrate 50 mg PO Q6H #0 tab 10/26/21 pantoprazole 40 mg IV Q12 #0 ea 10/26/21 spironolactone 50 mg PO DAILY #0 tab 10/26/21 Hospital Course Operations None Procedures 2-D Echocardiogram and EKG Summary of Care Provided Hospital Course: Patient is a 50-year-old male who was originally admitted for complaints of palpitations and was noted to have a flutter with RVR. Patient had recently been evaluated in the ER and had followed up with Dr. Kenny for new onset ascites and was undergoing work-up for MILLAN/cirrhosis. Upon admission patient was also noted to be hyperglycemic and hemoglobin A1c was done which was 10.4. Patient states that he does not follow with a primary care provider and prior to the past month he has not knowingly had any health issues. Due to atrial flutter with RVR patient underwent echocardiogram which demonstrated a EF of 10% with a severely dilated left ventricle, D-shaped septum in systole and diastole and severe global left ventricular systolic dysfunction. Patient was discussed with Dr. Hogan of cardiology who recommended patient be transf erred to tertiary care center considering severity and unknown etiology of cardiomyopathy. Patient reports that his father had extensive coronary artery disease and at the age of 50. Patient was placed on the wait list at on 10/23/2021. On 10/25/2021 patient began having 6 short intermittent runs between 5 and 7 beats of V. tach. However on the morning of 10/26/2021 patient began having increased frequency of V. tach runs as well as a began extending to 7-9 beats. transfer center was called and updated. Patient subsequently received approval to be transferred to as a bed has become available. This patient was seen by ALINE Simmons under the supervision of Dr. Rubin. 17 minutes spent in clinical coordination of patient's plan of care. Physical Exam Const alert and oriented x3 General Appearance: cooperative HEENT normocephalic and head/scalp atraumatic Eyes conjunctivae normal and no scleral icterus Neck supple General: trachea midline Resp normal respiratory effort, normal air movement, no retractions, no use of accessory muscles and clear to auscultation bilaterally Cardio regular rate, regular rhythm, S1 normal heart sound, S2 normal heart sound and peripheral pulses 2+ throughout Rate: tachycardic Rhythm: abnormal rhythm regularly irregular GI normal to inspection, nondistended, normoactive bowel sounds GI Narrative: Mild suprapubic tenderness to palpation. No rebound. Auscultation: normoactive bowel sounds Palpation: tender epigastric and ascites Extremity normal to inspection, normal capillary refill and no clubbing, cyanosis or edema General Extremity: no tenderness to palpation of joints or extremities Skin General Skin Exam: no breakdown and turgor normal Lesions: no lesions Rashes: no rashes Neuro no focal motor deficits and no sensory deficits noted Sensorium / Orientation: awake and alert Speech: speech normal Motor Exam: Negative for general weakness Psych thought process normal, cooperative and affect normal Appearance: appropriate Weight / BMI Weight Weight: 175 lb 7.807 oz Body Mass Index (BMI) 24.5 ABG / Lab / Microbiology Data Result Diagrams: 10/26/21 05:54 10/26/21 05:54 Laboratory: Laboratory Results - last 24 hr 10/25/21 05:46: Ferritin 870 H 10/25/21 16:21: POC Glucose 161 H 10/25/21 20:08: POC Glucose 142 H 10/26/21 05:54: WBC 5.4, RBC 4.47 L, Hgb 12.0 L, Hct 37.0 L, MCV 82.8, MCH 26.8 L, MCHC 32.4, RDW Std Deviation 39.5, RDW Coeff of Shaun 14.2, Plt Count 102 L, MPV 11.3, Immature Gran % (Auto) 0.600, Neut % (Auto) 61.9, Lymph % (Auto) 22.7, [place] % (Auto) 12.5 H, Eos % (Auto) 1.9, Baso % (Auto) 0.4, Absolute Neuts (auto) 3.3, Absolute Lymphs (auto) 1.22, Nucleated RBC % 0.4 10/26/21 05:54: Sodium 132 L, Potassium 4.5, Chloride 101, Carbon Dioxide 26.0, Anion Gap 5, BUN 10, Creatinine 0.83, Estim Creat Clear Calc 112.38, Est GFR (MDRD) Af Amer 127, Est GFR (MDRD) Non-Af 105, BUN/Creatinine Ratio 12.1, Glucose 141 H, Calcium 8.9 10/26/21 05:54: Magnesium 1.9 10/26/21 06:33: POC Glucose 139 H 10/26/21 11:11: POC Glucose 236 H Microbiology: Microbiology 10/23/21 09:03 Nasal Secretion SARS-CoV-2 Antigen (Rapid) - Final D/C Instructions Discharge Diet: Low fat / Low cholesterol Meaningful Use Info Meaningful Use Diagnoses (Choose all that apply): None applicable Discharge Plan Admission Admit Date/Time: 10/23/21 15:50 Primary Reason for Your Visit: Atrial Flutter with RVR Attending Provider: Marcelo Rubin Primary Care Provider: Care Physician,No Primary Discharge Orders/Prescriptions Prescriptions: New spironolactone 50 mg Tablet 50 mg PO DAILY Qty: 0 RF: 0 Lantus Solostar U-100 Insulin 100 unit/mL (3 mL) Insulin Pen 10 units subcut QHS Qty: 0 RF: 0 hydromorphone 0.5 mg/0.5 mL Syringe 0.5 mg IV Q3H PRN PRN (Reason: Pain Score 6-10) Qty: 0 RF: 0 pantoprazole 40 mg Recon Soln 40 mg IV Q12 Qty: 0 RF: 0 metoprolol tartrate 50 mg Tablet 50 mg PO Q6H Qty: 0 RF: 0 insulin lispro [Humalog KwikPen Insulin] 100 unit/mL Insulin Pen See Protocol unit subcut ACHS Qty: 0 RF: 0 Discontinued furosemide [Lasix] 20 mg tablet 40 mg PO DAILY Qty: 60 RF: 2 No Action spironolactone [Aldactone] 25 mg tablet 50 mg PO DAILY Qty: 60 RF: 2 Referrals / Follow Up: Care Physician,No Primary [Primary Care Provider] - Disposition Disposition (needs filled in before D/C Order can be placed): [facility]
[2021-10-27 13:08] LABS: PROEL- A/G Ratio 1.2 (0.7-1.7); PROEL- Albumin 4.1 g/dL (2.9-4.4); PROEL- Alpha-1 Globulin 0.3 g/dL (0.0-0.4); PROEL- Alpha-2 Globulin 0.7 g/dL (0.4-1.0); PROEL- Beta Globulin 1.4 g/dL (0.7-1.3); PROEL- Gamma Globulin 1.1 g/dL (0.4-1.8); PROEL- Globulin, Total 3.5 g/dL (2.2-3.9); PROEL- TOTAL PROTEIN 7.6 g/dL (6.0-8.5)
== END 2021-10-26 14:15 | disposition short-term general hospital (02) | DRG 309 ==
LOC: ED 11:21 → PCU 13:32
PROVIDERS: Anesthesiology; Internal Medicine Gastroenterology; Nurse Practitioner Family; Admitting Provider Internal Medicine; Emergency Provider Student in an Organized Health Care Education/Training Program
PROC: 0DJ08ZZ Inspection of Upper Intestinal Tract, Via Natural or Artificial Opening Endoscopic (ICD-10-PCS; CPT 43235; principal; 2021-10-23 08:00)
DX: I48.92 Unspecified atrial flutter (principal); N17.9 Acute kidney failure, unspecified; I85.00 Esophageal varices without bleeding; E87.1 Hypo-osmolality and hyponatremia; R18.8 Other ascites; I42.9 Cardiomyopathy, unspecified; D69.6 Thrombocytopenia, unspecified; Z79.4 Long term (current) use of insulin; E11.65 Type 2 diabetes mellitus with hyperglycemia; K74.60 Unspecified cirrhosis of liver; I44.30 Unspecified atrioventricular block; F12.90 Cannabis use, unspecified, uncomplicated; E78.5 Hyperlipidemia, unspecified; E87.8 Other disorders of electrolyte and fluid balance, not elsewhere classified; K75.81 Nonalcoholic steatohepatitis (NASH); E78.00 Pure hypercholesterolemia, unspecified; E83.119 Hemochromatosis, unspecified; I10 Essential (primary) hypertension; F17.220 Nicotine dependence, chewing tobacco, uncomplicated; R10.13 Epigastric pain
CPT/HCPCS: 36415; 71045; 71275; 74018; 74174; 76700; 80048; 80053; 80076; 82150; 82728; 82962; 83036; 83605; 83615; 83690; 83735; 84100; 84165; 84439; 84443; 84481; 84484; 85025; 85379; 85610; 85652; 85730; 86140; 87426; 93005; 93306; 97802; 99285; 99406; J7030; J7040; J7120; Q9967; A4216; J2405

== ENCOUNTER → 2022-01-20 08:01 | Outpatient (CLI) | payer BC, SELFPAY ==
--- NOTE | 2022-01-20 08:59 | PCM.CR.HP2 ---
CR - History & Physical - General Arrival date:: 01/20/22 Arrival time:: 08:00 Date of Referral:: 12/30/21 Date of CR Evaluation:: 01/20/22 Referring Physician: Dr Leija Monique Primary Diagnosis: Heart Failure - acute combined systolic/diastolic - History of Present Cardiac Event Onset Date: Enter Onset Date of cardiac illnesses in Comment field below Current stable Angina Pectoris:: No Acute Myocardial Infarction within 12 months:: No Coronary Artery Bypass Graft:: No Heart valve replacement or repair:: No PTCA or coronary stenting:: No Heart or Heart-Lung Transplant:: No Heart Failure EF <35%:: Yes - 15% HFrEF per echocardiogram Type of Symptoms:: stomach pain; determined to be filling with fluid retention. Interventions with present event:: treated the HF - Sleep Disorder Evaluation Hx of Sleep Apnea: No Do you snore loudly (louder than talking or can be heard through closed doors)?: No Do you often feel tired/ fatigued/ sleepy during daytime?: No Has anyone observed you stop breathing during sleep?: No History of Hypertension (for STOP score): No STOP Results: Negative - Medications Home Medications: Ambulatory Orders Medication Instructions Recorded hydromorphone 0.5 mg IV Q3H PRN PRN #0 ml 10/26/21 insulin glargine [Lantus Solostar 10 units SUBCUT QHS #0 ml 10/26/21 U-100 Insulin] insulin lispro [Humalog KwikPen See Protocol SUBCUT ACHS #0 ml 10/26/21 Insulin] metoprolol tartrate 50 mg PO Q6H #0 tab 10/26/21 pantoprazole 40 mg IV Q12 #0 ea 10/26/21 spironolactone 50 mg PO DAILY #0 tab 10/26/21 spironolactone 25 mg tablet See Rx Instructions .ROUTE 12/23/21 .COMPLEX #60 tab apixaban [Eliquis] 5 mg PO BID 01/20/22 carvedilol 3.125 mg PO BID 01/20/22 dofetilide 125 mcg PO Q12H 01/20/22 hydralazine 25 mg PO TID 01/20/22 magnesium oxide 800 mg PO BID 01/20/22 spironolactone 25 mg PO DAILY 01/20/22 - Allergies Allergies/Adverse Reactions: Allergies No Known Allergies Allergy (Verified 09/25/21 16:49) Advanced Directives - Advanced Directives Power of Licensed Nursing Assistant: No Living Will: No Advance Directives Information Provided: Yes Advance Directives on File: No DNR Order?:: No - MOLST See MOLST form: No Past Medical History - Covid-19 Screening Fever: No Unexplained muscle aches: No Current respiratory symptoms: No Upper respiratory infections symptoms: No Gastro-intestinal symptoms: No Wbi-Ivgc-[id number] symptoms: No Has tested positive for COVID-19 in last 30 days: No Date of testin01/20/22 - not vaccinated Had contact w/person w/symptoms or Covid-19 (+) last 14 days: No Has High Risk Exposures ID'd by Health dept/Inf Control team: No 65 years or older:: No Lives in Assisted Living facility:: No Has a chronic lung disease or moderate to severe asthma:: No Has a serious heart condition:: Yes Immunocompromised:: No Severely obese (Body Mass Index of 40 or higher):: No Diabetic:: No Has chronic kidney disease undergoing dialysis:: No Has liver disease:: No - Past Medical Illness Medical History: Past Medical History (Last Updated 10/25/21 @ 17:[address] Moon Friend, DO) Abdominal ascites R18.8 Cirrhosis K74.60 High cholesterol E78.00 Hypertension I10 - Family History Summary Family History: Family History (Last Reviewed 10/22/21 @ 15:10 by Yelena Gordon) Father Myocardial infarction Heart disease Social History - Smoking History Smoking Status: Never smoker Hx Tobacco Use: No Hx Smoking Exposure: No - Alcohol Use Alcohol Usage: No - Substance Abuse Hx Substance Use: No - Occupation Occupation (List type of work in comments):: Employed Hours worked per day:: 8 - Hobbies, Recreation, Social Activities Hobbies: Sports - fishing, hunting, 4-wheeling, larry in the garage, Other Recreational Activities: I am able to engage in all my recreational activities Social Environment - Status Marital Status: - Current Living Arrangements Living Environment:: Spouse - Children How many children do you have?: 3 Do any of your children live nearby?: Yes - Safety Do you feel safe in your surroundings?: Yes - Assistance Do you need any assistance at home?: no Review of Systems - Review of Systems Hints: Right click = Denies (Slash). Left click = Reports ([place]) Review of Present Symptoms: Reports: Dizziness/Lightheadedness - if stand up out of bed to fast, or stand to quickly, Appetite - Normal, Appetite - Special Diet - low carb, no salt, Sleep - Normal. Denies: Shortness of Breath at Rest, Shortness of Breath with Exertion, Fatigue, Heart Arrhythmia/Irregularities, Sexual Changes - Pain Is Patient Pain Free?: Yes Pain Location: none Risk Factor Assessment - Vital Signs Temperature: 98 F - 6 Respiratory Rate: 18 Pulse Ox: 97 Blood Pressure: 96/63 - Pulse Pulse Rate: 70 Pulse Rhythm: Regular - Hypertension Blood Pressure Sitting - Left Arm: 96/63 - Blood Cholesterol/Lipids Total Cholesterol (mg/dL) Goal = less than 200 mg/dL: 0 - not available - Obesity Height: 5 ft 10 in Weight:: 168 lb Weight in Pounds: 168.0 lbs Weight Source: Stated by Patient Body Mass Index (BMI): 24.0 - Physical Inactivity Physical Inactivity: Reg Exercise 30 min/day, Physically demanding job - Risk Stratification Risk Guidelines: Lowest Risk: Risk Factor for Smoking, Risk Factor for Dyslipidemia, Risk Factor for Diabetes, Risk Factor for Obesity, Risk Factor for Hypertension, Risk Factor for Sedentary Lifestyle, Risk Factor for Depression - Family History Family History: Family History (Last Reviewed 10/22/21 @ 15:10 by Yelena Gordon) Father Myocardial infarction Heart disease Motivation - Motivation to Participate On a scale of 1 to 10, how prepared are you to commit to attending program?: 5 - doctors orders What do you see as barriers to successfully being able to complete the program?: nothing What do you see as the benefits of succesfully completing the program? In other words, what do you hope to get out of participating in the program?: get back to normal, stronger Are there issues you are dealing with that will interfere with completing the program?: none Do you have a spouse or signficant other, family or friends who will help support you to complete the program?: yes
[2022-01-20 09:13] VITALS: BP 96/63; PULSE 70; RESP 18; TEMP 36.6; O2SAT 97; BMI 24.0
--- NOTE | 2022-01-20 09:25 | PCM.CR.ITP ---
Diagnosis - General Information Admitting Diagnosis: HFrEF 15%, acute systolic-diastolic heart failure Personal Learning Style:: Audio/Visual, Written Barriers to Learning: No Barriers Stage of change r/t lifestyle modifications:: Contemplation Gave educational material for:: Treating Heart Disease, Emotions & Heart Disease, Stress Management & Relaxation, Sleep Disorders & Heart Disease, How The Heart Works, What it means to have Heart Disease, How Coronary Artery Disease is Diagnosed, Heart Procedures, What Heart Medications Do, Risk Factors & Modifications, Living an Active Life, Nutrition - Education/Goals Cardiac Rehabilitation Goals: 1. Maintain the individual as the primary focus of care. 2. To improve the patient's quality of life. 3. Identification of cardiac risk factors and provide cardiac risk factor management. 4. Enhance the psychosocial status of the patient. 5. Reconditioning enough to allow the patient to resume customary activities. 6. Control symptoms of cardiac disease Personal Goals: Initial Assessment: Other goal: - no specific goals Scale for measuring improvement of personal goals: Enter appropriate number in Comments. 2 = Unchanged. 3 = Slightly Better. 4 = Moderate Improvement. 5 = Met my Goal - Diagnosis & Disease Process Outcomes/Goals: Pt IDs own risk factors & lifestyle modifications by Session 10, Verbalizes symptoms of angina & response by session 3., Pt independently manages Plan/Interventions: Assist Pt to ID & engage in lifestyle modification to reduce CVD risk, Instruct on individual risk factors, Review symptoms of angina & emergency actions - Safety Referral to Physical Therapy: No Referral to [facility] Case Management: No Fall Risk Assessed:: Yes Assistive Devices:: None Exercise - Initial Assessment - Visit Date of Eval: 01/20/22 Session #:: 0 - pre-cardiac rehab Mets: Pre-: >7 METS for 30 minutes by discharge - Physician Prescribed Exercise Modalities: Treadmill, Rower, Airdyne Frequency: 3x/week for 12 weeks [36 sessions] Intensity: 60-80% of age predicted maximum heart rate reserve Current METSs:: 4.0 Target Heart Rate:: 76-100 Resting Blood Pressure: 96/63 EKG Type: atrial flutter controlled rate Current Physical Activity or Exercising minutes: physical demanding job 8 to 10 hours daily - Outcomes & Goals Goals:: Verbalizes understanding of THR, RPE & goal METS by session 6, Documents in home exercise log/reports 30 min aerobic 5 day/wk by DC, Demonstrates accurate pulse taking by DC - Intervention & Plan Exercise Program Goals: Instruct on personal THR & RPE, Instruct on MET level & personal MET goal, Show patient to take own pulse /validate performance until accurate, Instruct on home exercise - Physical Activity Home Exercise Physical Activity - Home Exercise: Safe Exercise, Warm-up, Self-monitoring, Cool-Down, Home Exercise > 30 min Daily, Sitting Time <3 hours/daily - Outcomes & Goals Outcomes/Goals: Demonstrates correct Warm-up/exercise Cool-Down (S3) if = 2.5 METs, Verbalizes symptoms of exercise intolerance by Session 3 (S3), Demonstrate safe equipment use (S3) & follows exercise prescrition (6) - Intervention & Plan Plan/Intervention: Instruct warm-up & cool-down if exercising at > 2 METs, Instruct on symptoms of exercise intolerance & actions to take, Instruct & monitor on saf, Assess intial functional capacity & safety risk Nutrition - Initial Assessment - Program Goals Nutrition Program Goals: LDL <100 optimal. 100 - 129 Near optimal. 130 - 159 Borderline High. 160 - 189 High. Total Cholesterol <200 desirable. 200 - 239 Borderline High. >/= 240 High. HDL < 40 Low >/=60 High. Triglycerides <150 desirable. <199 optimal. VlDL 5 - 40. HgbA1C <7%. BMI <25 Patient has diagnosis of Hyperlipidemia (ICD E78)?: No - Diabetes (Other Core Measures) Diabetes Type: Not Applicable - Weight Mgt (Other Care) Not Applicable: Yes Height: 5 ft 9 in Weight:: 168 lb BMI: 24.7 Diagnosis Overweight/Obesity BMI> 30% ICD-10 E66: No Diagnosis High BMI/Morbid Obesity BMI> 35% ICD-10 Z68: No Outcomes/Goals: Pt sets, maintains & shows weight loss goal & trend during rehab Intervention/Plan: Instruct on ideal BMI & set weight loss goal w/patient - Healthy Eating Habits Will attend diet classes:: Yes Outcomes/Goals:: Consume diet rich in vegs,fruits,whole grain/high fiber,fish,lean meat, Limit sat/trans fats,cholesterol & added salts & sugars Intervention/Plan:: Assess current eating habits - Education Gave educational materials for:: Healthy eating Nutrition - 30-Day Assessment Nutrition - 60-Day Assessment Nutrition - 90-Day Assessment Nutrition - Final Assessment Medical - Initial Assessment - Visit Date of Eval: 01/20/22 Session #:: 0 - pre-cardiac rehab evaluation - Medication Compliance Preventative Medication(s):: Aspirin, Eliquis H/O mental health issues: depression, anxiety, or addiction?: No Doesn?t believe in the benefits of treatment?: No Believes medications are unnecessary or harmful?: No Has a concern about medication side effects?: No Expresses concern over the cost of medications?: No Outcomes/Goals: Verbalizes medications,desired effect & common side effects @ DC, Pt self-reports following medication regimen, Keeps card in wallet w/medications listed by DC Interventions/plans: Instruct on medication effects & side effects, Review medication list w/patient every two weeks, Instruct importance of taking meds as ordered & assist problem solving - Tobacco Use Tobacco Use: Non-smoker - Hypertension Resting Blood Pressure:: 96/63 [place] [employer] Hypertension Guidelines: [place] [employer] Hypertension Guidelines. Normal BP Less than 120/80. Elevated BP 120/80. Hypertension Stage 1: BP 130-139/80-89. Hypertesnion Stage 2: BP 140 or higher/90 or higher. Hypertension Crisis: BP higher than 180/120 Outcomes/Goals: Able to verbalize/achieve optimal blood pressure <130/80, Incorporates diet changes & exercise for blood pressure control by DC Interventions/plan: Instruct on optimal blood pressure, hypertension & medications, Instruct on effects of sodium, alcohol, stress, exercise &hypertension - Tobacco Cessation Referral Smoking Cessation Referral:: No Individual Education/Counseling:: No Education Schedule Given:: Yes Medical- 30-Day Assessment Medical- 60-Day Assessment Medical- 90-Day Assessment Medical - Final Assessment Psychosocial - Initial Assess - VIsit Date of Eval: 01/20/22 Session #:: 0 - PRE-CARDIAC REHAB EVALUATION Not Applicable: Yes History of previous Mental disease:: No - Psychosocial Test Tool Used:: [employer] QOL Cardiac, PHQ-9 Questionnaire phq-9 Severity: Severity. 1-4 Minimal Depression. 5-9 Mild Depression. 10-14 Moderate Depression. 15-19 Moderately Sever Depression. 20-27 Severe Depression. Rule: - Referral to Behavioral Health PS - Interventions: Yes Attend Stress Management Classes, No Referral to Behavioral Health if PHQ-9 score >9:, No Referral to [facility], No Referral to Physician if PHQ-9 if score is 5-9: - Outcomes/Goals: See list Psychosocial Outcomes/Goals:: ID's personal stressors & 2 strategies to manage stress by discharge - Intervention/Plan: See List Interventions/Plan:: Assess stressors,coping strategies & signs of derpression on admission, Instruct/assist pt to develop coping & personal stress Mgt strategies, Instruct patient to recognize signs & symptoms of depression, Instruct patient to recog Psychosocial - 30-Day Assess Psychosocial - 60-Day Assess Psychosocial - 90-Day Assess Psychosocial - Final Assessmen Patient Health Questionnaire Initial Assessment 1. Little interest or pleasure in doing things: Not at all 2. Feeling down, depressed, or hopeless: Not at all 3. Trouble falling or staying asleep, or sleeping too much: Not at all 4. Feeling tired or having little energy: Not at all 5. Poor appetite or overeating: Not at all 6. Feeling bad about yourself -- or that you are a failure or have let yourself or your family down: Not at all 7. Trouble concentrating on things, such as reading the newspaper or watching television: Not at all 8. Moving or speaking so slowly that other people could have noticed. Or the opposite - being so fidgety or restless that you have been moving around a lot more than usual: Not at all 9. Thoughts that you would be better off , or of hurting yourself in some way: Not at all How difficult have these problems made it for you to do your work, take care of things at home, or get along with other people?: Not difficult at all Total Score: 0 RON-Q SV Test - Statements CAD is a disease of the arteries in the heart: False Examples of risk factors for heart disease: True Angina is chest pain or discomfort: I Don't Know The benefits of resistance training include: True Eating more meat and dairy products: False Anti-platelet medications such as aspirin are important: I Don't Know The only effective way to manage stress: False An exercise warm-up slowly increases heart rate: I Don't Know Prepared, processed foods usually have high sodium: True Depression is common after a heart attack: I Don't Know The statin medications lower cholesterol: I Don't Know To control blood pressure, lower the amount of sodium: True If someone gets chest discomfort during walking: False Transfats are partially hydrogenated vegetable oils: True Sleep apnea that is not treated increases the risk: True To control cholesterol, one should become a vegetarian: False Someone knows if he/she is exercising at the right level: I Don't Know Diabetes cannot be prevented with exercise & health eating: False Stress is a large risk for heart attack: I Don't Know A diet that can help lower blood pressure is rich in: I Don't Know - Total Score Total Correct Responses: 11 Self-Efficacy Initial Assessment We would like to know how confident you are in doing certain activities. Please select your confidence level for:: Select your confidence level for the following using the scale 1-10 where 1 is not at all confident and 10 is totally confident. Your score is the average of all 6 responses. Fatigue: How confident are you that you can keep the fatigue caused by your disease from interfering with the things you want to do? Select Number: 10 Physical Discomfort or Pain: How confident are you that you can keep the physical discomfort or pain of your disease from interfering with the things you want to do? Select Number: 10 Emotional Distress: How confident are you that you can keep the emotional distress caused by your disease from interfering with the things you want to do? Select Number: 10 Other Symptoms or Health Problems: How confident are you that you can keep other symptoms or health problems from interfering with the things you want to do? Select Number: 10 Different Tasks and Activities: How confident are you that you can do the different tasks and activities needed to manage your health condition so as to reduce your need to see a doctor? Select Number: 10 Medication: How confident are you that you can do things other than just taking medication to reduce how much your illness affects your everyday life? Select Number: 10 Total Score:: 10 Nutrition Survey - Nutrition Survey Initial Have you lost >10 lbs over the past 2 months without trying?: No Are you following a special diet at home for diabetes, low fat, or low salt?: Yes Are you interested in meeting with a dietitian for help understanding your diet?: No Do you eat less than 3 meals a day?: Yes Do you eat fatty meats (mulligan, sausage, ribs, etc), fried foods, desserts, large amounts of salad dressings, margarine, butter, or cheese most days?: No Do you have food allergies? [Enter types in comment field]: No Do you eat in restaurants more than 3 times a week?: No Do you season food with salt, seasoning salt, or garlic salt?: No Do you used canned, boxed, frozen meals, or soups, seasoning packets?: No Total Score:: 2
[2022-01-20 09:33] VITALS: BP 96/63; BMI 24.7
== END ==
DX: I50.41 Acute combined systolic (congestive) and diastolic (congestive) heart failure (principal)

== ENCOUNTER 2022-02-04 15:45 | Outpatient (RCR) | payer BC, SELFPAY ==
[2022-01-20 09:33] VITALS: BMI 24.7
== END 2022-02-05 23:59 ==
LOC: CR 15:45
DX: I50.23 Acute on chronic systolic (congestive) heart failure (principal)
CPT/HCPCS: 93798

== ENCOUNTER 2022-02-07 10:48 | Outpatient (RCR) | payer BC, SELFPAY ==
[2022-01-20 09:33] VITALS: BMI 24.7
== END 2022-03-08 23:59 ==
LOC: CR 10:48
DX: I50.23 Acute on chronic systolic (congestive) heart failure (principal)
CPT/HCPCS: 93798

== ENCOUNTER 2022-08-24 21:07 | Emergency (ER) | payer BC, SELFPAY ==
[2022-01-20 09:33] VITALS: BMI 24.7
[2022-08-24 21:08] VITALS: BP 175/109; PULSE 86; RESP 16; TEMP 36.6; O2SAT 100; BMI 25.8
--- NOTE | 2022-08-24 22:24 | EDS_ITS ---
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 His son was with him to and helping him, he presents here with him with the same symptoms for same period of time. [facility] Medical History (Updated 08/24/22 @ 22:[address] Rai Austin MD) Abdominal ascites Cirrhosis High cholesterol Hypertension Home Medications hydromorphone 0.5 mg/0.5 mL injection syringe 0.5 mg (0.5 mL) IV Q3H PRN PRN Pain Score 6-10 #0 mL 10/26/21 [Rx Last Taken Unknown] insulin glargine 100 unit/mL (3 mL) subcutaneous pen (Lantus Solostar U-100 Insulin) 10 units (0.1 mL) subcut QHS #0 mL 10/26/21 [Rx Last Taken Unknown] insulin lispro 100 unit/mL subcutaneous pen (Humalog KwikPen (U-100) Insulin) See Protocol subcut ACHS #0 mL 10/26/21 [Rx Last Taken Unknown] metoprolol tartrate 50 mg tablet 50 mg PO Q6H #0 tabs 10/26/21 [Rx Last Taken Unknown] pantoprazole 40 mg intravenous solution 40 mg IV Q12 #0 ea 10/26/21 [Rx Last Taken Unknown] spironolactone 50 mg tablet 50 mg PO DAILY #0 tabs 10/26/21 [Rx Last Taken Unknown] spironolactone 25 mg tablet See Rx Instructions .Route .COMPLEX #60 tabs 12/23/21 [Rx Last Taken Unknown] apixaban 5 mg tablet (Eliquis) 5 mg PO BID 01/20/22 [History Last Taken Unknown] carvedilol 3.125 mg tablet 3.125 mg PO BID 01/20/22 [History Last Taken Unknown] dofetilide 125 mcg capsule 125 mcg PO Q12H 01/20/22 [History Last Taken Unknown] hydralazine 25 mg tablet 25 mg PO TID 01/20/22 [History Last Taken Unknown] magnesium oxide 800 mg PO BID 01/20/22 [History Last Taken Unknown] spironolactone 25 mg tablet 25 mg PO DAILY 01/20/22 [History Last Taken Unknown] Allergy/AdvReac Type Severity Reaction Status Date / Time No Known Allergies Allergy Verified 08/24/22 21:09 Family History Father Myocardial infarction Heart disease Social History Smoking Status: Never smoker Smokeless tobacco user: chewing tobacco alcohol intake: former year quit: 2020 substance use type: marijuana ROS ROS ED Constitutional Constitutional ED: Denies chills or fever(s) Eyes Eyes: Reports as per HPI and eye pain ENT ENT ED: Denies ear pain, rhinorrhea or sore throat Neurologic Neurologic: Denies headache(s), paresthesias or weakness EXAM Physical Exam Const Vital Signs: 08/24/22 21:08 08/24/22 21:19 Temperature 97.8 F Temperature Source Temporal Pulse Rate 86 Respiratory Rate 16 Respiratory Depth Normal Respiratory Pattern Normal Blood Pressure 175/109 H Blood Pressure Mean 131 Pulse Ox 100 Oxygen Delivery Method Room Air Positive well nourished and well developed General Appearance ED: well developed and NAD HEENT atraumatic; Negative for tenderness Mouth ED: Yes oral and palatal mucosa normal and Yes lips normal Mouth: oral and palatal mucosa normal and lips normal Eyes PERRL and EOMs intact bilaterally Neuro oriented x3, CN's II-XII intact bilaterally and gait normal Sensorium / Orientation: alert Skin Lesions: no lesions Rashes: no rashes MDM MDM MDM Narrative Medical decision making narrative: Symptoms much better with topical tetracaine. Evaluated him with slit lamp on both sides. There is stippling of the cornea bilaterally and symmetrically without any evidence of Romario sign, focal dye uptake other than that, or endophthalmitis. Given topical bacitracin/neomycin ointment and instructions for use at home, also given an oral [place] for pain in addition to some ibuprofen, also given appropriate discharge instructions regarding follow-up in 2-3 days if not improving and/or back to baseline vision. Discharge Plan Triage Chief Complaint: Burn ED Provider: Rai Austin Dx/Rx/DC Orders Clinical Impression: UV keratitis Instructions: ED Flash Burn to Eye Prescriptions: No Action spironolactone 50 mg Tablet 50 mg PO DAILY Qty: 0 0RF Lantus Solostar U-100 Insulin 100 unit/mL (3 mL) Insulin Pen 10 units subcut QHS Qty: 0 0RF hydromorphone 0.5 mg/0.5 mL Syringe 0.5 mg IV Q3H PRN PRN (Reason: Pain Score 6-10) Qty: 0 0RF pantoprazole 40 mg Recon Soln 40 mg IV Q12 Qty: 0 0RF metoprolol tartrate 50 mg Tablet 50 mg PO Q6H Qty: 0 0RF insulin lispro [Humalog KwikPen Insulin] 100 unit/mL Insulin Pen See Protocol subcut ACHS Qty: 0 0RF Protocol: 3. Sliding Scale Insulin Med Dosing Condition: 150-189 mg/dl = 1 unit Condition: 190-229 mg/dl = 2 units Condition: 230-269 mg/dl = 3 units Condition: 270-309 mg/dl = 4 units Condition: 310-349 mg/dl = 5 units Condition: 350-399 mg/dl = 6 units Condition: 400-449 mg/dl = 7 units Condition: Greater than 449 call physician Protocol Text: - Use for Total Daily Dose of Insulin 37-55 units - Obsese, infected, or steroid patients MEDIUM DOSING ALGORITHIM dofetilide 125 mcg Capsule 125 mcg PO Q12H hydralazine 25 mg Tablet 25 mg PO TID spironolactone 25 mg Tablet 25 mg PO DAILY carvedilol 3.125 mg Tablet 3.125 mg PO BID magnesium oxide 400 mg magnesium Capsule 800 mg PO BID Eliquis 5 mg Tablet 5 mg PO BID spironolactone 25 mg tablet See Rx Instructions .ROUTE .COMPLEX Qty: 60 5RF Dose Instruction: TAKE 2 TABLET BY MOUTH EVERY DAY Rx Instructions: TAKE 2 TABLET BY MOUTH EVERY DAY Primary Care Provider: Care Physician,No Primary Referrals: Zack Sanchez MD [Med Staff - Active Staff] - 3-5 Days if not improving Care Physician,No Primary [Primary Care Provider] - Activity Restrictions/Additional Instructions: Use antibiotic ointment to the affected eyes 3 times daily as needed. Disposition Disposition: Home, Self Care
[2022-08-24] MEDS: HYDROcodone Bitartrate/Apap 5/325 Tablet PO (22:30)
[2022-08-24] MEDS: Ibuprofen 600 MG Tablet PO (22:32)
[2022-08-24] MEDS: Neomycin/Bacitracin/Polymyxin Opth. Ointment 1 APPLIC EACH EYE (22:32)
[2022-08-24] MEDS: Fluorescein 1 MG STRIP 1 STRIP EACH EYE (22:33)
== END 2022-08-24 22:37 | disposition home or self-care (01) ==
PROVIDERS: Emergency Provider Emergency Medicine; Visit Provider Emergency Medicine
DX: H16.133 Photokeratitis, bilateral (principal); I10 Essential (primary) hypertension; E78.00 Pure hypercholesterolemia, unspecified; F17.220 Nicotine dependence, chewing tobacco, uncomplicated; Z79.899 Other long term (current) drug therapy
CPT/HCPCS: 99283

== ENCOUNTER 2024-03-11 03:06 | Emergency (ER) | payer BC, SELFPAY ==
[2022-01-20 09:33] VITALS: BMI 24.7
[2024-03-11 03:06] VITALS: BP 184/112; PULSE 90; RESP 19; TEMP 36.6; O2SAT 99; BMI 27.7
--- NOTE | 2024-03-11 03:27 | EX.ED.DYSGE1 ---
HPI <Dr. Julien Torres MD - Last Filed: 03/11/24 12:58> History of Present Illness Chief Complaint: Abd Pain Detail of Chief Complaint: Abdominal pain with nausea and vomiting and reported black stool Informant: patient and spouse/S.O. Onset/Context/Timing Onset: Today and Yesterday Context: Sudden Onset Timing: Continuous (Pain has been continuous. It is upper abdomen.) Quality: Pain Location: Right and left upper quadrant Current Severity: Moderate Maximum Severity: Severe Worsened by: Vomiting Relieved by: Nothing Associated Symptoms Associated Symptoms: Noted black stool 1 hour ago Narrative Narrative: Patient is a 53-year-old male with history of Croft, atrial flutter/fibrillation on anticoagulant (Eliquis), cardiomyopathy, thrombocytopenia, abdominal pain and ascites. He also has a history of hypertension based on his medications. Patient states he has vomited 20+ times. There is no blood or coffee grounds noted in the emesis. Based on medication he does have history of type 1 diabetes as well. Patient denies fever, chills night sweats. Patient [place] cardiac or respiratory symptoms. Patient denies urologic symptoms. Patient denies bruising easily. Prior similar symptoms: Yes Recent Illness/Hospitalization: No PFSH <Dr. Julien Torres MD - Last Filed: 03/11/24 12:58> PFSH Medical History Atrial fibrillation Heart failure Cirrhosis Abdominal ascites High cholesterol Hypertension Home Medications ?Medication ?Instructions ?Recorded ?Last Taken ?Type spironolactone 25 mg tablet See Rx Instructions .Route 12/23/21 Unknown Rx .COMPLEX #60 tabs apixaban 5 mg tablet (Eliquis) 5 mg PO BID 01/20/22 Unknown History carvedilol 3.125 mg tablet 3.125 mg PO BID 01/20/22 Unknown History dofetilide 125 mcg capsule 125 mcg PO Q12H 01/20/22 Unknown History magnesium oxide 800 mg PO BID 01/20/22 Unknown History spironolactone 25 mg tablet 25 mg PO DAILY 01/20/22 Unknown History sildenafil 50 mg tablet 50 mg PO DAILY 03/11/24 Unknown History Allergy/AdvReac Type Severity Reaction Status Date / Time No Known Allergies Allergy Verified 08/24/22 21:09 Family History Father Myocardial infarction Heart disease Social History Smoking Status: Never smoker Smokeless tobacco user: chewing tobacco alcohol intake: former year quit: 2020 substance use type: marijuana ROS <Dr. Julien Torres MD - Last Filed: 03/11/24 12:58> ROS ED Constitutional Constitutional ED: Denies chills, fever(s), subjective, sweats or weight loss Eyes Eyes: Denies blurry vision or change in vision ENT ENT ED: Denies rhinorrhea or sore throat Cardiovascular Cardiovascular: Denies chest pain, orthopnea, palpitations, paroxysmal nocturnal dyspnea or racing heartbeat Respiratory/Chest Respiratory/Chest: Denies cough, dyspnea, dyspnea on exertion, orthopnea or paroxysmal nocturnal dyspnea Gastrointestinal Gastrointestinal: Reports abdominal pain, melena, nausea and vomiting; Denies constipation or diarrhea Genitourinary Genitourinary ED: Denies dysuria or hematuria Musculoskeletal Musculoskeletal: Denies arthralgias, back pain or myalgias Integumentary Denies rash Neurologic Neurologic: Reports weakness Hematologic/Lymphatic Hematologic/Lymphatic: Reports systems reviewed and no addt'l complaints, except as documented and as per HPI EXAM <Dr. Julien Torres MD - Last Filed: 03/11/24 12:58> Physical Exam Const Vital Signs: 03/11/24 03:06 03/11/24 05:06 03/11/24 07:00 Temperature 97.9 F 99.2 F H Temperature Source Temporal Oral Pulse Rate 90 73 68 Respiratory Rate 19 H 15 14 Blood Pressure 184/112 H 166/104 H 127/84 H Blood Pressure Mean 136 124 98 Pulse Ox 99 98 92 Oxygen Delivery Method Room Air Room Air 03/11/24 09:00 03/11/24 09:01 Temperature 97.6 F L Temperature Source Pulse Rate 74 74 Respiratory Rate 16 16 Blood Pressure 132/87 H 132/87 H Blood Pressure Mean 102 102 Pulse Ox 98 98 Oxygen Delivery Method Room Air Positive well nourished and well developed Constitutional Narrative: Patient appears uncomfortable. Blood pressure is elevated 184/112. Vital signs otherwise are unremarkable. General Appearance ED: well developed; Negative for cyanotic, diaphoretic or pallor HEENT Reports dry mucous membranes HEENT Narrative: Head is atraumatic, cephalic. Ears normal. Nares patent. Posterior pharynx out erythema or exudate. Mouth ED: Yes dry mucous membranes Mouth: dry mucous membranes Eyes PERRL and EOMs intact bilaterally General Eye ED: Negative for pale conjunctiva or scleral icterus Neck no lymphadenopathy, supple and no JVD Neck Narrative: Trachea is midline. There is no dysphonia. Chest Wall inspection of chest normal and palpation of chest normal Resp normal respiratory effort and clear to auscultation bilaterally Cardio regular rate, regular rhythm, S1 normal heart sound, S2 normal heart sound and no murmurs GI non-distended and no masses; Negative for non-tender or hepatosplenomegaly GI Narrative: Stool was very dark/black. Hemoccult, however, was negative Auscultation: hypoactive bowel sounds Palpation: soft and tender epigastric; Negative for guarding or mass Rectal Exam: normal sphincter tone, prostate normal and heme negative stool Back/Spine no CVA tenderness Extremity normal to inspection General Extremety ED: Negative for edema or tenderness General Extremity: Negative for edema Neuro oriented x3 and CN's II-XII intact bilaterally Sensorium / Orientation: alert Psych mental status grossly normal Skin no rashes or lesions noted, no wounds and skin turgor normal General Skin Exam: elasticity normal; Negative for jaundice or pallor <Dr. Miguel Angel Martini DO - Last Filed: 03/11/24 08:41> Physical Exam Const Vital Signs: 03/11/24 03:06 03/11/24 05:06 03/11/24 07:00 Temperature 97.9 F 99.2 F H Temperature Source Temporal Oral Pulse Rate 90 73 68 Respiratory Rate 19 H 15 14 Blood Pressure 184/112 H 166/104 H 127/84 H Blood Pressure Mean 136 124 98 Pulse Ox 99 98 92 Oxygen Delivery Method Room Air Room Air 03/11/24 09:00 03/11/24 09:01 Temperature 97.6 F L Temperature Source Pulse Rate 74 74 Respiratory Rate 16 16 Blood Pressure 132/87 H 132/87 H Blood Pressure Mean 102 102 Pulse Ox 98 98 Oxygen Delivery Method Room Air [facility] <Dr. Julien Torres MD - Last Filed: 03/11/24 12:58> [facility] Narrative Medical decision making narrative: Differential diagnosis would include abdominal pain unknown etiology, biliary disease, peptic ulcer disease, pancreatitis (he has not had an alcoholic beverage for 1 year), cannabis hyperemesis syndrome. He states he has not had any marijuana for 3 days. History & Record Review Additional record(s) reviewed:: Prior inpatient record (Admitted October 2021 for abdominal pain/ascites. He was admitted at that time for abdominal pain. He was referred to Dr. Kenny for outpatient workup of nonalcoholic fatty liver disease.), Prior ED visit and Prior labs Lab Data Attestation: I reviewed the patient's lab results. Lab results narrative: CBC is unremarkable. Basic metabolic panel reveals acute on chronic hyponatremia with hypochloremia. CO2 is 20 with an elevated anion gap. Creatinine is elevated 1.42. Prior was normal. Estimated GFR is 56. BUN to creatinine ratio was 14:1. Glucose is elevated at 461. There is no history of diabetes. Will obtain serum acetone level. 1 L normal saline was ordered. CT of the abdomen was obtained since he has significant pain with a lactic acidosis of 4.5. Additional dose of morphine was ordered as well. Patient has new onset diabetes. Will start on subcu insulin. Serum ketones was negative. Labs: Laboratory Results - last 24 hr 03/11/24 03/11/24 03/11/24 03:43 05:05 06:35 WBC 7.2 RBC 4.47 L Hgb 14.3 Hct 40.3 MCV 90.2 MCH 32.0 MCHC 35.5 RDW Std Deviation 39.4 RDW Coeff of Shaun 11.9 Plt Count 198 MPV 9.8 Immature Gran % (Auto) 0.300 Neut % (Auto) 67.3 Lymph % (Auto) 24.5 [place] % (Auto) 7.6 Eos % (Auto) 0.0 Baso % (Auto) 0.3 Absolute Neuts (auto) 4.9 Absolute Lymphs (auto) 1.77 Nucleated RBC % 0 Sodium 129 L Potassium 3.6 Chloride 91 L Carbon Dioxide 20.0 L Anion Gap 18 H BUN 20 H Creatinine 1.42 H Estim Creat Clear Calc 66.56 Est GFR (MDRD) Af Amer 68 Est GFR (MDRD) Non-Af 56 L BUN/Creatinine Ratio 14.1 Glucose 461 H* Hemoglobin A1c 8.7 H Lactic Acid 4.5 H* Calcium 9.5 Total Bilirubin 2.10 H AST 30 ALT 26 Alkaline Phosphatase 83 Total Protein 7.5 Albumin 3.6 Globulin 3.9 Albumin/Globulin Ratio 0.9 Lipase 31 Acetone Level NEGATIVE POC Glucose 320 H Blood Type AB POSITIVE Antibody Screen NEGATIVE 03/11/24 03/11/24 08:19 08:25 WBC RBC Hgb Hct MCV MCH MCHC RDW Std Deviation RDW Coeff of Shaun Plt Count MPV Immature Gran % (Auto) Neut % (Auto) Lymph % (Auto) [place] % (Auto) Eos % (Auto) Baso % (Auto) Absolute Neuts (auto) Absolute Lymphs (auto) Nucleated RBC % Sodium Potassium Chloride Carbon Dioxide Anion Gap BUN Creatinine Estim Creat Clear Calc Est GFR (MDRD) Af Amer Est GFR (MDRD) Non-Af BUN/Creatinine Ratio Glucose Hemoglobin A1c Lactic Acid 2.0 Calcium Total Bilirubin AST ALT Alkaline Phosphatase Total Protein Albumin Globulin Albumin/Globulin Ratio Lipase Acetone Level POC Glucose 281 H Blood Type Antibody Screen Radiography Diagnostic Testing: Clinical Impression(s) from Imaging Studies Abdomen/Pelvis CT 03/11/24 04:40 IMPRESSION: 1. Fatty liver. 2. No evidence for acute pathology. Electronically Signed: Mo Mcfadden MD at 7:17 EDT Reading Location ID and State: [facility] / [place] , Service support , CT of the abdomen with IV contrast per my review reveals no abnormality of the right or left lower lung. Spleen appears normal. Liver is prominent. Gallbladder appears normal. There is no obvious inflammatory changes. Bladder is slightly distended. There is no evidence of hydroureter or hydronephrosis. 0510. Awaiting formal read by radiologist. Treatment and Re-Evaluation :: As of 651 CT of the abdomen has not been interpreted by radiologist. If the reading is not back prior to the completion my shift will turn over to the a.m. physician for disposition. <Dr. Miguel Angel Martini, DO - Last Filed: 03/11/24 08:41> [facility] Lab Data Lab results narrative: CBC is unremarkable. Basic metabolic panel reveals acute on chronic hyponatremia with hypochloremia. CO2 is 20 with an elevated anion gap. Creatinine is elevated 1.42. Prior was normal. Estimated GFR is 56. BUN to creatinine ratio was 14:1. Glucose is elevated at 461. There is no history of diabetes. Will obtain serum acetone level. 1 L normal saline was ordered. CT of the abdomen was obtained since he has significant pain with a lactic acidosis of 4.5. Additional dose of morphine was ordered as well. Patient has new onset diabetes. Will start on subcu insulin. Serum ketones was negative. Dr. Martini dictating: Patient signed out to me at 7:15 AM for monitoring until CT scan could be obtained. This was negative for any acute findings. 4 units of insulin previously. Plan is to admit the patient for new onset diabetes. I spoke with the hospitalist regarding patient and he recommends another 5 units of subcutaneous insulin and he will admit him to PCU. Dr. Leigh dictatin:41 AM patient states he does not want to be admitted for his blood sugars. He states he was already diagnosed with hyperglycemia/diabetes at [facility]. He states he has all the medications he needs at home to treat his hyperglycemia. He states that he has all these because they were already treating his diabetes and he was getting low blood sugars so they stopped all of his medicines. Patient was signed out AGAINST MEDICAL ADVICE and acknowledges understanding of the risk of severe disability, injury, . He signed the appropriate paperwork. Return precautions were discussed. Labs: Laboratory Results - last 24 hr 03/11/24 03/11/24 03/11/24 03:43 05:05 06:35 WBC 7.2 RBC 4.47 L Hgb 14.3 Hct 40.3 MCV 90.2 MCH 32.0 MCHC 35.5 RDW Std Deviation 39.4 RDW Coeff of Shaun 11.9 Plt Count 198 MPV 9.8 Immature Gran % (Auto) 0.300 Neut % (Auto) 67.3 Lymph % (Auto) 24.5 [place] % (Auto) 7.6 Eos % (Auto) 0.0 Baso % (Auto) 0.3 Absolute Neuts (auto) 4.9 Absolute Lymphs (auto) 1.77 Nucleated RBC % 0 Sodium 129 L Potassium 3.6 Chloride 91 L Carbon Dioxide 20.0 L Anion Gap 18 H BUN 20 H Creatinine 1.42 H Estim Creat Clear Calc 66.56 Est GFR (MDRD) Af Amer 68 Est GFR (MDRD) Non-Af 56 L BUN/Creatinine Ratio 14.1 Glucose 461 H* Hemoglobin A1c 8.7 H Lactic Acid 4.5 H* Calcium 9.5 Total Bilirubin 2.10 H AST 30 ALT 26 Alkaline Phosphatase 83 Total Protein 7.5 Albumin 3.6 Globulin 3.9 Albumin/Globulin Ratio 0.9 Lipase 31 Acetone Level NEGATIVE POC Glucose 320 H Blood Type AB POSITIVE Antibody Screen NEGATIVE 03/11/24 03/11/24 08:19 08:25 WBC RBC Hgb Hct MCV MCH MCHC RDW Std Deviation RDW Coeff of Shaun Plt Count MPV Immature Gran % (Auto) Neut % (Auto) Lymph % (Auto) [place] % (Auto) Eos % (Auto) Baso % (Auto) Absolute Neuts (auto) Absolute Lymphs (auto) Nucleated RBC % Sodium Potassium Chloride Carbon Dioxide Anion Gap BUN Creatinine Estim Creat Clear Calc Est GFR (MDRD) Af Amer Est GFR (MDRD) Non-Af BUN/Creatinine Ratio Glucose Hemoglobin A1c Lactic Acid 2.0 Calcium Total Bilirubin AST ALT Alkaline Phosphatase Total Protein Albumin Globulin Albumin/Globulin Ratio Lipase Acetone Level POC Glucose 281 H Blood Type Antibody Screen Radiography Diagnostic Testing: Clinical Impression(s) from Imaging Studies Abdomen/Pelvis CT 03/11/24 04:40 IMPRESSION: 1. Fatty liver. 2. No evidence for acute pathology. Electronically Signed: Mo Mcfadden MD at 7:17 EDT , Discharge Plan Triage Chief Complaint: Abd Pain ED Provider: Julien Torres Dx/Rx/DC Orders Clinical Impression: Abdominal pain, acute, Nausea & vomiting, Acidosis, lactic, Pseudohyponatremia, Elevated serum creatinine, Elevated blood pressure reading with diagnosis of hypertension, Anticoagulant long-term use, New onset type 2 diabetes mellitus Instructions: ED Diabetic Hyperglycemia, ED Vomiting (Adult), ED Abdominal Pain Unkn Cause Male... Prescriptions: No Action dofetilide 125 mcg Capsule 125 mcg PO Q12H spironolactone 25 mg Tablet 25 mg PO DAILY carvedilol 3.125 mg Tablet 3.125 mg PO BID magnesium oxide 400 mg magnesium Capsule 800 mg PO BID Eliquis 5 mg Tablet 5 mg PO BID sildenafil 50 mg tablet 50 mg PO DAILY spironolactone 25 mg tablet See Rx Instructions .ROUTE .COMPLEX Qty: 60 5RF Dose Instruction: TAKE 2 TABLET BY MOUTH EVERY DAY Rx Instructions: TAKE 2 TABLET BY MOUTH EVERY DAY Primary Care Provider: Care Physician,No Primary Referrals: Care Physician,No Primary [Primary Care Provider] - Print Language: Welsh Disposition Disposition: Home, Self Care Discharge Date/Time: 03/11/24 09:02
[2024-03-11] MEDS: Morphine 4 MG/ML Syringe IV ×3 (03:34→06:55)
[2024-03-11] MEDS: Ondansetron 4 MG/2 ML Vial IV (03:34)
[2024-03-11] MEDS: 0.9% Normal Saline (1000mL) 1,000 ML 150 ML IV (03:35)
[2024-03-11 04:04] LABS: Absolute Lymphocyte Count 1.77 X10^3/uL (0.83-4.51); Absolute Neutrophil Count 4.9 X10^3/uL (2.0-7.7); Basophil# 0.02 X10^3/uL; Basophil% 0.3 % (0-1); Hematocrit 40.3 % (40-54); Hemoglobin 14.3 g/dL (13.0-16.5); Lymphocyte # 1.77 X10^3/ul (0.83-4.51); Lymphocyte % 24.5 % (19-41); Mean Corp Hgb Conc 35.5 g/dL (32-36); Mean Corpuscular Volume 90.2 fL (80-94); Mean Platelet Vol. 9.8 fl (6.2-12.0); Monocyte# 0.55 X10^3/uL; Monocyte% 7.6 % (0-10); NRBC Flagged by Analyzer 0 % (0-5); Neutrophil # 4.85 X10^3/uL (2.7-7.7); Neutrophil % 67.3 % (47-70); Platelet Count 198 K/mm3 (150-450); RBC Distribution Width CV 11.9 % (11.6-14.6); RBC Distribution Width SD 39.4 fl (35.1-43.9); Red Blood Count 4.47 M/mm3 (4.6-6.2); White Blood Count 7.2 K/mm3 (4.4-11.0)
[2024-03-11 04:37] LABS: ALB/GLOB Ratio 0.9 RATIO (0.9-2.4); AST(SGOT) 30 U/L (15-37); Alanine Aminotransfer ALT/SGPT 26 U/L (16-61); Albumin, Serum 3.6 g/dL (3.2-5.0); Alkaline Phosphatase 83 U/L (45-117); Anion Gap 18 (5-15); BUN 20 mg/dL (7-18); BUN/Creat Ratio 14.1 RATIO (10-20); Calcium,Total 9.5 mg/dL (8.5-10.1); Chloride 91 mmol/L (98-107); Creatinine, Serum 1.42 mg/dL (0.70-1.30); EST Glomerular Filtration Rate 56 mL/min (>60); Est Glom Filt Rate - Afr Amer 68 mL/min (>60); Estimated Creatinine Clearance 66.56 ml/min; Globulin 3.9 g/dL (2.2-4.2); Glucose 461 mg/dL (74-106); Lactic Acid 4.5 mmol/L (0.4-1.9); Lipase 31 U/L (13-75); Potassium 3.6 mmol/L (3.5-5.1); Protein, Total 7.5 g/dL (6.4-8.2); Sodium Level 129 mmol/L (136-145)
--- NOTE | 2024-03-11 04:40 | CT_ITS ---
EXAM: CT ABDOMEN AND PELVIS WITH INTRAVENOUS CONTRAST CLINICAL INDICATION: PAIN . Black stool. Nausea, vomiting, and diarrhea. Chills. Mid abdominal pain. History of atrial fibrillation on Eliquis. TECHNIQUE: Helically acquired images were obtained of the abdomen and pelvis with intravenous contrast. This CT exam was performed using one or more of the following dose reduction techniques: automated exposure control, adjustment of the mA and/or kV according to patient size, and/or use of iterative reconstruction technique. CONTRAST: IV 100mL [id number] RADIATION DOSE: CTDIvol = 13.68 mGy, DLP = 826.42 mGy-cm COMPARISON: Abdominal ultrasound 10/22/2021. CTA chest abdomen and pelvis 10/22/2021. CT scan abdomen and pelvis 09/25/2021. FINDINGS: LOWER THORAX: Unremarkable. Lung bases are clear. No cardiomegaly. No significant pericardial effusion. ABDOMEN: LIVER: There is decreased attenuation of the liver, consistent with fatty infiltration. GALLBLADDER AND BILE DUCTS: Unremarkable. No calcified gallstones. No gallbladder distention or wall edema. No intra- or extrahepatic biliary ductal dilation. PANCREAS: Unremarkable. No focal cystic or solid mass. SPLEEN: Unremarkable. Normal size without focal cystic or solid mass. ADRENALS: Unremarkable. No nodules. KIDNEYS AND URETERS: Unremarkable. Normal renal size and position. No hydronephrosis. STOMACH AND BOWEL: Unremarkable. No stomach or bowel distention. No focal inflammatory change. PELVIS: APPENDIX: A normal-appearing appendix is seen on axial images 84-95. BLADDER: Unremarkable. REPRODUCTIVE: Unremarkable as visualized. No mass. ABDOMEN and PELVIS: INTRAPERITONEAL SPACE: Unremarkable. No ascites or other fluid collection. No free air. BONES/JOINTS: There are multilevel degenerative changes in the visualized spine. No suspicious lytic or blastic abnormality. SOFT TISSUES: Unremarkable. No discrete abdominal or pelvic wall hernia. VASCULATURE: Unremarkable. Abdominal aorta is non-dilated. LYMPH NODES: Unremarkable. No enlarged lymph nodes. CT/Abdomen/Pelvis W IV Cont ONLY IMPRESSION: 1. Fatty liver. 2. No evidence for acute pathology. Electronically Signed: Mo Mcfadden MD at 7:17 EDT ,
[2024-03-11] MEDS: 0.9% Normal Saline (1000mL) 1,000 ML 1000 ML IV (04:49)
[2024-03-11 05:06] VITALS: BP 166/104; PULSE 73; RESP 15; TEMP 37.3; O2SAT 98
[2024-03-11] MEDS: Insulin Lispro 100 UNIT/ML INSULN.PEN SC ×2 (05:31→08:22)
[2024-03-11 06:52] LABS: Bedside Glucose 320 mg/dL (74-106)
[2024-03-11 07:00] VITALS: BP 127/84; PULSE 68; RESP 14; O2SAT 92
[2024-03-11 07:58] LABS: Reflex Lactate? Y
[2024-03-11] MEDS: 0.9% Normal Saline (1000mL) 1,000 ML 75 ML IV (08:23)
[2024-03-11 08:37] LABS: Bedside Glucose 281 mg/dL (74-106)
[2024-03-11 08:58] LABS: Hemoglobin A1c 8.7 % (3.8-5.6)
[2024-03-11 09:00] VITALS: BP 132/87; PULSE 74; RESP 16; O2SAT 98
[2024-03-11 09:01] VITALS: BP 132/87; PULSE 74; RESP 16; TEMP 36.4; O2SAT 98
== END 2024-03-11 09:02 | disposition home or self-care (01) ==
PROVIDERS: Emergency Medicine; Emergency Provider Family Medicine; Visit Provider Family Medicine
DX: R10.9 Unspecified abdominal pain (principal); I11.0 Hypertensive heart disease with heart failure; I50.9 Heart failure, unspecified; E11.9 Type 2 diabetes mellitus without complications; Z79.01 Long term (current) use of anticoagulants; R11.2 Nausea with vomiting, unspecified; E78.00 Pure hypercholesterolemia, unspecified; R79.89 Other specified abnormal findings of blood chemistry; Z79.899 Other long term (current) drug therapy; F17.220 Nicotine dependence, chewing tobacco, uncomplicated
CPT/HCPCS: 74177; 80053; 82009; 82274; 82962; 83036; 83605; 83690; 85025; 86850; 86900; 86901; 96361; 96372; 96374; 96375; 96376; 99284; J7030; Q9967; A4216; J2405

== ENCOUNTER 2024-03-12 10:41 | Observation (INO) | payer BC, SELFPAY ==
[2022-01-20 09:33] VITALS: BMI 24.7
[2024-03-12] VITALS (7 sets, daily range): BP systolic 87–160; BP diastolic 57–134; PULSE 68–126; RESP 16–20; TEMP 36.4–36.9; O2SAT 97–100; BMI 25.5
--- NOTE | 2024-03-12 10:53 | EDS_ITS ---
HPI History of Present Illness Chief Complaint: Abd Pain [facility] Medical History Atrial fibrillation Heart failure Cirrhosis Abdominal ascites High cholesterol Hypertension Home Medications ?Medication ?Instructions ?Recorded ?Last Taken ?Type apixaban 5 mg tablet (Eliquis) 5 mg PO BID BLOOD THINNER 01/20/22 03/11/24 History carvedilol 3.125 mg tablet 3.125 mg PO BID HEART 01/20/22 03/11/24 History dofetilide 125 mcg capsule 125 mcg PO BID AFIB 01/20/22 03/11/24 History spironolactone 25 mg tablet 25 mg PO DAILY HEART 01/20/22 03/11/24 History sildenafil 50 mg tablet 50 mg PO DAILY PRN SEXUAL ACTIVITY 03/11/24 Unknown History magnesium oxide 400 mg (241.3 mg 800 mg PO BID SUPPLEMENT 03/12/24 03/11/24 History magnesium) tablet sacubitril 97 mg-valsartan 103 mg 1 tab PO BID HEART FAILURE 03/12/24 03/11/24 History tablet (Entresto) Allergy/AdvReac Type Severity Reaction Status Date / Time No Known Allergies Allergy Verified 08/24/22 21:09 Family History Father Myocardial infarction Heart disease Social History Smoking Status: Never smoker Smokeless tobacco user: chewing tobacco alcohol intake: former year quit: 2020 substance use type: marijuana EXAM Physical Exam Const Vital Signs: 03/12/24 10:42 03/12/24 12:41 03/12/24 14:00 Temperature 97.7 F L Temperature Source Temporal Pulse Rate 126 H 103 H 81 Respiratory Rate 20 H 16 18 Blood Pressure 160/134 H 90/71 87/68 L Blood Pressure Mean 142 77 74 Pulse Ox 100 97 97 Oxygen Delivery Method Room Air Room Air Room Air MDM MDM MDM Narrative Medical decision making narrative: HISTORY OF PRESENT ILLNESS: 53 year old male presents with abdominal pain. Notes severe abdominal pains ongoing for the last 5 days. Notes approximate 70 episodes of nonbloody nonbilious vomitus. Denies diarrhea. Denies chest pain or shortness of breath. REVIEW OF SYSTEMS: All other systems reviewed and are negative except as noted in the history of present illness. At least 10 review of systems reviewed and are negative except as noted in history of present illness. PHYSICAL EXAM: Nursing triage notes reviewed, Vital signs reviewed Constitutional: please see mdm HENT: MMM Eyes: Pupils equal round and reactive to light, Extraocular muscles intact Neck: No stridor, no JVD, full neck ROM Lungs: Clear to auscultation, No wheezing or rales. No increased work of breathing, no conversational dyspnea, no accessory muscle use, no nasal flaring. No respiratory distress noted Heart: Regular rate and rhythm, No murmurs, No rubs and No gallops, 2+ distal pulses (radial, femoral, posterior tibial) in all extremities Abdomen: Diffuse tenderness but soft, no rigidity, rebound or guarding, no obvious peritoneal signs, no palpable pulsatile abdominal masses, no auscultated abdominal bruit : No CVAT Extremities: No edema Neuro: No focal neurological deficits, cranial nerves II through XII intact, 5/5 strength in all extremities. Intact sensation to light touch in all extremities, 2+ reflexes bilateral patella tendons. Normal gait. No ataxia. Skin: No rash or lesions noted MEDICAL DECISION MAKING: Chief Complaint: abdominal pain External records reviewed: Seen in ED yesterday: Reviewed labs from yesterday: CBC with no leukocytosis, no anemia or thrombocytopenia, CMP with hyponatremia, no other significant electrolyte abnormalities, noted no evidence of metabolic acidosis, noted elevated anion gap, noted hyperglycemia, lactic acidosis that was initially elevated and then resolved, acetone level is negative, Hemoccult negative yesterday. CT scan abdomen pelvis showed no acute process yesterday. Signed out AGAINST MEDICAL ADVICE Factors affecting care: Type 2 diabetes, liver cirrhosis, A-fib on [facility] Social determinants of health: Positive marijuana use History obtained from others: Patient's Consults: Internal medicine (Dr. Douglas) [facility] Narrative: Patient was initially tachycardic, tachypneic and hypertensive. He is afebrile. Abdominal exam benign I considered the following differential diagnosis: AAA, small bowel obstruction, abdominal perforation, appendicitis, pancreatitis, hepatobiliary pathology (acute cholecystitis), mesenteric ischemia, abnormalities such as pyelonephritis, nephrolithiasis, DKA, HHS I obtained a broad lab and imaging workup to further elucidate etiology of pat ient's complaints. ALL IMAGES (IF OBTAINED) HAVE BEEN PERSONALLY REVIEWED AND INTERPRETED BY MYSELF. VBG without evidence of acidosis, noted compensated metabolic acidosis with a bicarb of 19 BMP with pseudohyponatremia, hyperglycemia, no LIZANDRO, noted anion gap LFTs and hyperbilirubinemia, mild elevation liver enzymes Lipase is wnl indicating no pancreatic inflammation. Acetone small There is not definitive evidence of DKA however the patient shows signs of progression towards that outcome if he continues to have intractable nausea and vomiting. He was treated with IV fluids, Zofran, morphine Toradol and insulin. I see nothing that would suggest an acute abdomen at this time. Based on history physical exam, risk factors, and recent negative CT scan my suspicion for bowel obstruction, incarcerated hernia, perforated viscus, acute cholecystitis, appendicitis is very low. There is no evidence of peritonitis sepsis or toxicity at this time. Given patient's intractable nausea and vomiting signs of metabolic acidosis and concern for progression to DKA he will be admitted for initiation of insulin other antidiabetic medication, fluid hydration and nausea control. The patient and/or family, caregivers express understanding. The patient and/or family, caregivers agrees with the plan. Total critical care time today provided was at least 0 minutes. This excludes separately billable procedures. Critical care time (if documented) is secondary to the patient having high probability of clinically significant/life threatening deterioration in the patient's condition which required my urgent intervention. Shared decision making: I will have a discussion with the patient and or visitors regarding risk/benefits of further testing or admission. They will be made aware of of the risk/benefits inherent in this decision they will be given the opportunity to voice understanding. Impression: 1. Intractable nausea vomiting 2. Metabolic acidosis 3. Hyperglycemia Disposition: Admit José Miguel Sebastian DO This note was generated with [employer] dictation software. It may contain incorrect words, spelling, and punctuation that were not noted in review of the chart prior to signing. Lab Data Labs: Laboratory Results - last 24 hr 03/12/24 03/12/24 03/12/24 11:05 12:17 13:39 WBC 9.1 RBC 5.28 Hgb 16.9 H Hct 47.0 MCV 89.0 MCH 32.0 MCHC 36.0 RDW Std Deviation 38.7 RDW Coeff of Shaun 11.9 Plt Count 257 MPV 9.7 Immature Gran % (Auto) 0.200 Neut % (Auto) 70.9 H Lymph % (Auto) 17.5 L [place] % (Auto) 5.0 Eos % (Auto) 6.0 H Baso % (Auto) 0.4 Absolute Neuts (auto) 6.5 Absolute Lymphs (auto) 1.59 Nucleated RBC % 0 Sodium 129 L Potassium 4.3 Chloride 93 L Carbon Dioxide 19.0 L Anion Gap 17 H BUN 16 Creatinine 1.24 Est GFR (MDRD) Af Amer 79 Est GFR (MDRD) Non-Af 65 BUN/Creatinine Ratio 12.9 Glucose 332 H Lactic Acid 2.2 H* Calcium 9.4 Total Bilirubin 1.60 H AST 58 H ALT 38 Alkaline Phosphatase 101 Total Protein 8.0 Albumin 3.8 Globulin 4.2 Albumin/Globulin Ratio 0.9 Lipase 34 Acetone Level SMALL H POC Glucose 323 H 270 H ABG Data ABG results: ABG 03/12/24 11:20 Specimen Type GORDON Sample Site Not entered VBG pH 7.47 H VBG pO2 20 L VBG HCO3 19 L VBG Total CO2 19 L VBG O2 Sat (Calc) 39 L VBG Base Excess -5 L POC Mix VBG pCO2 Pt Tmp 25.6 L O2 Delivery Device Not entered Discharge Plan Triage Chief Complaint: Abd Pain ED Provider: José Miguel Sebastian Dx/Rx/DC Orders Prescriptions: No Action dofetilide 125 mcg Capsule 125 mcg PO BID spironolactone 25 mg Tablet 25 mg PO DAILY carvedilol 3.125 mg Tablet 3.125 mg PO BID Eliquis 5 mg Tablet 5 mg PO BID sildenafil 50 mg tablet 50 mg PO DAILY PRN (Reason: SEXUAL ACTIVITY ) magnesium oxide 400 mg (241.3 mg magnesium) tablet 800 mg PO BID Entresto 97-103 mg tablet 1 tab PO BID Primary Care Provider: Care Physician,No Primary Referrals: Care Physician,No Primary [Primary Care Provider] - Print Language: Hungarian
--- NOTE | 2024-03-12 10:55 | EKG12_ITS ---
Test Reason : ABD PAIN Blood Pressure : / mmHG Vent. Rate : 099 BPM Atrial Rate : 099 BPM P-R Int : 156 ms QRS Dur : 090 ms QT Int : 358 ms P-R-T Axes : 064 064 062 degrees QTc Int : 459 ms Normal sinus rhythm Septal infarct , age undetermined Abnormal ECG Confirmed by Julio Connell ([id number]), film or videotape editor ROMY FUNG ([id number]) on 03/13/2024 2:53:03 PM Referred By: Confirmed By:Julio Connell
[2024-03-12] MEDS: Ketorolac 15 MG/ML Vial IV (11:09)
[2024-03-12] MEDS: Ondansetron 4 MG/2 ML Vial IV (11:09)
[2024-03-12 11:19] LABS: Absolute Lymphocyte Count 1.59 X10^3/uL (0.83-4.51); Absolute Neutrophil Count 6.5 X10^3/uL (2.0-7.7); Basophil# 0.04 X10^3/uL; Basophil% 0.4 % (0-1); Eosinophil# 0.55 X10^3/uL; Hemoglobin 16.9 g/dL (13.0-16.5); Lymphocyte # 1.59 X10^3/ul (0.83-4.51); Lymphocyte % 17.5 % (19-41); Mean Platelet Vol. 9.7 fl (6.2-12.0); Monocyte# 0.46 X10^3/uL; NRBC Flagged by Analyzer 0 % (0-5); Neutrophil # 6.45 X10^3/uL (2.7-7.7); Neutrophil % 70.9 % (47-70); Platelet Count 257 K/mm3 (150-450); RBC Distribution Width CV 11.9 % (11.6-14.6); RBC Distribution Width SD 38.7 fl (35.1-43.9); Red Blood Count 5.28 M/mm3 (4.6-6.2); White Blood Count 9.1 K/mm3 (4.4-11.0)
[2024-03-12 11:24] LABS: Blood Gas Specimen Type VEN; O2 Delivery Device Not entered; SITE Not entered; VBG BASE EXCESS -5 mmol/L (-1.0-3.5); VBG Bicarbonate 19 mmol/L (22-26); VBG PO2 20 mmHg (25-40); VBG SO2 39 % (50-70); VBG TCO2 19 mmol/L (23-33); VBG pCO2 25.6 mmHg (41-51); VBG pH 7.47 (7.32-7.42)
[2024-03-12 11:37] LABS: ALB/GLOB Ratio 0.9 RATIO (0.9-2.4); AST(SGOT) 58 U/L (15-37); Alanine Aminotransfer ALT/SGPT 38 U/L (16-61); Albumin, Serum 3.8 g/dL (3.2-5.0); Alkaline Phosphatase 101 U/L (45-117); Anion Gap 17 (5-15); BUN 16 mg/dL (7-18); BUN/Creat Ratio 12.9 RATIO (10-20); Calcium,Total 9.4 mg/dL (8.5-10.1); Chloride 93 mmol/L (98-107); Creatinine, Serum 1.24 mg/dL (0.70-1.30); EST Glomerular Filtration Rate 65 mL/min (>60); Est Glom Filt Rate - Afr Amer 79 mL/min (>60); Globulin 4.2 g/dL (2.2-4.2); Glucose 332 mg/dL (74-106); Lipase 34 U/L (13-75); Potassium 4.3 mmol/L (3.5-5.1); Sodium Level 129 mmol/L (136-145)
[2024-03-12 12:05] LABS: Lactic Acid 2.2 mmol/L (0.4-1.9)
[2024-03-12] MEDS: Morphine 4 MG/ML Syringe IV (12:28)
[2024-03-12 12:35] LABS: Bedside Glucose 323 mg/dL (74-106)
[2024-03-12] MEDS: Insulin Lispro 100 UNIT/ML INSULN.PEN 10 UNIT SC (12:36)
--- NOTE | 2024-03-12 13:39 | HP.PCM.HOS_ITS ---
HPI - General General Date of Admission: 03/12/24 Date of Service: 03/12/24 Chief Complaint: abdominal pain, intractable nausea and vomiting HPI Narrative KIZZY DEWITT, is a 53 M with a PMH as outlined who presents via the ED on 03/12/2024 with a complaint of intractable abdominal pain, nausea and vomiting. The symptoms have been going on for about 3 days. He states he was vomiting and retching about 70 times daily and to the point where he could barely keep anything down. He had intractable generalized abdominal pain due to the incessant nausea and vomiting. He denied any diarrhea and admitted to occasional chills but no fever. He has a history of diabetes mellitus but says his last A1c was less than 7 so he was taken off of all his medications. He also has a history of heart failure with reduced ejection fraction and says his EF was previously 10% but his last echo done by his sports umpire [facility] in July showed that his EF was up to 50%. He admits to smoking marijuana and states he has been spoken and for most of his life. He has however not smoked for the past few days because of his nausea and vomiting. Review of systems otherwise negative. Vitals in the ED were blood pressure of 90/71, pulse rate of 103, respirate rate of 16 and oxygen sats of 97% on room air. CBC showed hemoglobin of 16.9 with WBC of 9.1 and platelets of 257. Chemistry showed sodium of 129 with bicarb of 19 and anion gap of 17. Creatinine is 1.24. Glucose was 332 and lactic acid was 2.2 with total bilirubin of 1.6. He had small acetone levels in his blood. He has been admitted to be managed for intractable nausea and vomiting due to cannabinoid hyperemesis as well as anion gap metabolic acidosis likely due to starvation ketosis and probable mild DKA. [facility] Medical History Atrial fibrillation Heart failure Cirrhosis Abdominal ascites High cholesterol Hypertension Home Medications ?Medication ?Instructions ?Recorded ?Last Taken ?Type apixaban 5 mg tablet (Eliquis) 5 mg PO BID BLOOD THINNER 01/20/22 03/11/24 History carvedilol 3.125 mg tablet 3.125 mg PO BID HEART 01/20/22 03/11/24 History dofetilide 125 mcg capsule 125 mcg PO BID AFIB 01/20/22 03/11/24 History spironolactone 25 mg tablet 25 mg PO DAILY HEART 01/20/22 03/11/24 History sildenafil 50 mg tablet 50 mg PO DAILY PRN SEXUAL ACTIVITY 03/11/24 Unknown History magnesium oxide 400 mg (241.3 mg 800 mg PO BID SUPPLEMENT 03/12/24 03/11/24 History magnesium) tablet sacubitril 97 mg-valsartan 103 mg 1 tab PO BID HEART FAILURE 03/12/24 03/11/24 History tablet (Entresto) Allergy/AdvReac Type Severity Reaction Status Date / Time No Known Allergies Allergy Verified 08/24/22 21:09 Family History Father Myocardial infarction Heart disease Social History Smoking Status: Never smoker Smokeless tobacco user: chewing tobacco alcohol intake: former year quit: 2020 substance use type: marijuana ROS Constitutional Constitutional: Reports anorexia, chills, fatigue, malaise and weakness; Denies change in weight or fever(s) Eyes Eyes: Denies change in vision ENT HEENT: Denies dysphagia, headache(s), nasal congestion, nasal discharge, sinus pressure or sore throat Cardiovascular Cardiovascular: Denies chest pain, dyspnea on exertion, edema, lightheadedness, orthopnea, palpitations, paroxysmal nocturnal dyspnea, rapid heart rate or syncope Respiratory/Chest Respiratory/Chest: Denies cough, dyspnea, productive cough, shortness of breath at rest or shortness of breath with exertion Gastrointestinal Gastrointestinal: Reports abdominal pain, nausea and vomiting; Denies coffee ground emesis, constipation, diarrhea, dyspepsia, loose stools or melena Genitourinary Genitourinary: Denies burning urination, dysuria or nocturia Musculoskeletal Musculoskeletal: Denies arthralgias Neurologic Neurologic: Denies confusion, dizziness, focal weakness, headache(s), numbness, seizure-like activity, seizures, syncope or tremor(s) Psychiatric Psychiatric: Denies anxiety or depression Endocrine Endocrinology: Denies change in body appearance Hematologic/Lymphatic Hematologic/Lymphatic: Denies anemia Vital Signs Vital Signs Vital Signs: 03/12/24 10:42 03/12/24 12:41 Temperature 97.7 F L Temperature Source Temporal Pulse Rate 126 H 103 H Respiratory Rate 20 H 16 Blood Pressure 160/134 H 90/71 Blood Pressure Mean 142 77 Pulse Ox 100 97 Oxygen Delivery Method Room Air Room Air Physical Exam Const alert and oriented x3 Constitutional Narrative: in moderate distress due to abdominal pain General Appearance: cooperative HEENT normocephalic, head/scalp atraumatic and hearing grossly normal bilaterally HEENT Narrative: dry oral mucosa Eyes PERRL, EOMs intact bilaterally and conjunctivae normal Neck no lymphadenopathy, supple and no JVD Resp normal respiratory effort, no retractions, no use of accessory muscles and clear to auscultation bilaterally Cardio regular rate, regular rhythm, S1 normal heart sound, S2 normal heart sound and no murmurs GI normal to inspection, nondistended, normoactive bowel sounds and soft to palpation GI Narrative: moderate generalised tenderness, no guarding or rebound tenderness. Extremity normal to inspection, full ROM and no clubbing, cyanosis or edema Neuro oriented x3, CN's II-XII intact bilaterally, moves all extremities and no focal motor deficits Sensorium / Orientation: awake and alert Motor Exam: strength 5/5 throughout Psych affect normal Results Lab / Micro Data 03/12/24 11:05 03/12/24 11:05 Labs: Laboratory Results - last 24 hr 03/12/24 11:05: WBC 9.1, RBC 5.28, Hgb 16.9 H, Hct 47.0, MCV 89.0, MCH 32.0, MCHC 36.0, RDW Std Deviation 38.7, RDW Coeff of Shaun 11.9, Plt Count 257, MPV 9.7, Immature Gran % (Auto) 0.200, Neut % (Auto) 70.9 H, Lymph % (Auto) 17.5 L, [place] % (Auto) 5.0, Eos % (Auto) 6.0 H, Baso % (Auto) 0.4, Absolute Neuts (auto) 6.5, Absolute Lymphs (auto) 1.59, Nucleated RBC % 0, Sodium 129 L, Potassium 4.3, Chloride 93 L, Carbon Dioxide 19.0 L, Anion Gap 17 H, BUN 16, Creatinine 1.24, Est GFR (MDRD) Af Amer 79, Est GFR (MDRD) Non-Af 65, BUN/Creatinine Ratio 12.9, Glucose 332 H, Lactic Acid 2.2 H*, Calcium 9.4, Total Bilirubin 1.60 H, A ST 58 H, ALT 38, Alkaline Phosphatase 101, Total Protein 8.0, Albumin 3.8, Globulin 4.2, Albumin/Globulin Ratio 0.9, Lipase 34, Acetone Level SMALL H 03/12/24 12:17: POC Glucose 323 H ABG Data ABG results: ABG 03/12/24 11:20 Specimen Type GORDON Sample Site Not entered VBG pH 7.47 H VBG pO2 20 L VBG HCO3 19 L VBG Total CO2 19 L VBG O2 Sat (Calc) 39 L VBG Base Excess -5 L POC Mix VBG pCO2 Pt Tmp 25.6 L O2 Delivery Device Not entered Assessment & Plan Assessment/Plan (1) Cannabinoid hyperemesis syndrome: (2) Acidosis, lactic: (3) Increased anion gap metabolic acidosis: PLAN: Plan #Intractable nausea and vomitiing due to cannabinoid hyperemesis syndrome * admit to PCU * patient has been having nausea and vomiting for 3 days and it has not been improving. He smokes marijuana everyday and has done so for many years * says he was taken off his diabetes meds recently because his A1C was <7 * anion gap is elevated at 17. This is likely due to lactic acidosis and starvation ketosis; mild DKA may also be contributing as his blood sugar was in the 300s on admission and he had mild acetone in his blood. * his A2C from 03/11/2024 is 8.7 * hydrate aggressively with IVF NS @ 150cc/hr x 2 bags. * IV zofran and IV phenergan for nausea * counseled about quitting marijuana use. * #Anion gap metabolic acidosis * Anion gap is elevated at 17 with bicarb of 19. * Lactic acid is mildly elevated at 2.2 and this could also be contributing. Patient's A1c is 8.7 and his blood sugar was elevated in the 330s when he came in. This could also be a contributory factor as he had mild acetones. He has not been eating or drinking much for the last 3 days so I do think starvation ketosis is likely playing a role though he might also have some mild DKA in the setting of elevated blood sugars. * Will hydrate with IV fluids and trend CMP. Expect that anion gap will close with fluids and insulin administration. He did receive a bolus of insulin in the ED and his blood sugar had come down to 270. * Will hold off on insulin drip for now. * #Lactic acidosis: As above #Type 2 diabetes mellitus with probable mild DKA * Patient has a history of diabetes mellitus but states that his A1c previously check was below 7 so he was taken off of all his medications. A1c checked yesterday when he came into the ED and before he signed out AMA was 8.7. He does admit to having liberalized his diet quite a bit and not following the diabetic diet. * Anion gap as stated above was elevated at 17 and bicarb is 19. He had small acetone in his blood. * He did receive sc insulin 10 units x 1 in the ED. Will hydrate with fluids and trend blood sugars and bicarb. Hold off on insulin drip for now. #Heart failure with reduced EF. * Not in exacerbation. Had known EF of 10% from echo done in September 2023. Patient states he follows up at and recently had an echo done which showed EF of 50%. He started Entresto and spironolactone. * Will request records for echo from . * #History of A-fib: On dofetilide. On carvedilol and on Eliquis DVT prophylaxis: already on eliquis CODE STATUS: Full code * Patient counseled extensively about different types of CODE STATUS including full code, DNR CCA and DNR CCA. Patient elects to be full code. * Total [id number] time 16 minutes. Charges/Coding Visit Charges Inpatient E&M: 16296 Init Hosp L3 Procedures Hospitalists Procedures: 98636 Advncd Care Plan 30 Min
[2024-03-12 13:57] LABS: Bedside Glucose 270 mg/dL (74-106)
[2024-03-12] MEDS: 0.9% Normal Saline (1000mL) 1,000 ML 999 ML IV ×2 (14:21→16:25)
[2024-03-12 15:15] LABS: Reflex Lactate? Y
[2024-03-12] MEDS: fentaNYL 100 MCG/2 ML Ampul 50 MCG IV (15:18)
[2024-03-12] MEDS: 0.9% Normal Saline (1000mL) 1,000 ML 100 ML IV (16:25)
[2024-03-12] MEDS: oxyCODONE 5 MG Tablet PO (16:25)
[2024-03-12 16:37] LABS: Lactic Acid 0.8 mmol/L (0.4-1.9)
[2024-03-12] MEDS: Morphine 2 MG/ML Syringe IV (19:40)
[2024-03-12 20:05] LABS: Anion Gap 8 (5-15); BUN 17 mg/dL (7-18); BUN/Creat Ratio 16.8 RATIO (10-20); Calcium,Total 8.7 mg/dL (8.5-10.1); Chloride 103 mmol/L (98-107); Creatinine, Serum 1.01 mg/dL (0.70-1.30); EST Glomerular Filtration Rate 83 mL/min (>60); Est Glom Filt Rate - Afr Amer 100 mL/min (>60); Estimated Creatinine Clearance 86.53 ml/min; Glucose 170 mg/dL (74-106); Sodium Level 133 mmol/L (136-145)
[2024-03-12] MEDS: Magnesium Chloride 64 MG Delay Rel.Tablet 128 MG PO (21:35)
[2024-03-12] MEDS: APIXABAN 5 MG TABLET PO (21:35)
[2024-03-12] MEDS: Dofetilide 125 MCG Capsule PO (21:35)
[2024-03-12] MEDS: SACUBITRIL/VALSARTAN 97-103 MG TABLET 1 EACH PO (21:35)
[2024-03-13] MEDS: 0.9% Normal Saline (1000mL) 1,000 ML 100 ML IV (03:24)
[2024-03-13 03:25] VITALS: BP 111/83; PULSE 80; RESP 18; TEMP 36.3; O2SAT 98
[2024-03-13 06:10] LABS: Absolute Lymphocyte Count 2.23 X10^3/uL (0.83-4.51); Absolute Neutrophil Count 3.4 X10^3/uL (2.0-7.7); Basophil# 0.03 X10^3/uL; Basophil% 0.5 % (0-1); Eosinophil# 0.09 X10^3/uL; Eosinophils% 1.4 % (0-5); Hematocrit 39.7 % (40-54); Hemoglobin 14.1 g/dL (13.0-16.5); Lymphocyte # 2.23 X10^3/ul (0.83-4.51); Lymphocyte % 35.9 % (19-41); Mean Corp Hgb Conc 35.5 g/dL (32-36); Mean Corpuscular Hgb 32.3 pg (27.0-32.0); Mean Corpuscular Volume 91.1 fL (80-94); Mean Platelet Vol. 9.6 fl (6.2-12.0); Monocyte# 0.49 X10^3/uL; Monocyte% 7.9 % (0-10); NRBC Flagged by Analyzer 0 % (0-5); Neutrophil # 3.35 X10^3/uL (2.7-7.7); Neutrophil % 53.8 % (47-70); Platelet Count 165 K/mm3 (150-450); RBC Distribution Width CV 11.9 % (11.6-14.6); RBC Distribution Width SD 39.8 fl (35.1-43.9); Red Blood Count 4.36 M/mm3 (4.6-6.2); White Blood Count 6.2 K/mm3 (4.4-11.0)
[2024-03-13 09:02] VITALS: BP 117/83; PULSE 78; RESP 18; TEMP 36.6; O2SAT 99
[2024-03-13] MEDS: SACUBITRIL/VALSARTAN 97-103 MG TABLET 1 EACH PO (09:07)
[2024-03-13] MEDS: APIXABAN 5 MG TABLET PO (09:07)
[2024-03-13] MEDS: Dofetilide 125 MCG Capsule PO (09:07)
[2024-03-13] MEDS: Magnesium Chloride 64 MG Delay Rel.Tablet 128 MG PO (09:07)
[2024-03-13] MEDS: Carvedilol 3.125 MG TABLET PO (09:07)
[2024-03-13 09:16] LABS: ALB/GLOB Ratio 0.9 RATIO (0.9-2.4); AST(SGOT) 51 U/L (15-37); Alanine Aminotransfer ALT/SGPT 29 U/L (16-61); Albumin, Serum 2.8 g/dL (3.2-5.0); Alkaline Phosphatase 67 U/L (45-117); Anion Gap 5 (5-15); BUN 11 mg/dL (7-18); BUN/Creat Ratio 12.1 RATIO (10-20); Calcium,Total 8.2 mg/dL (8.5-10.1); Chloride 102 mmol/L (98-107); Creatinine, Serum 0.91 mg/dL (0.70-1.30); EST Glomerular Filtration Rate 93 mL/min (>60); Est Glom Filt Rate - Afr Amer 113 mL/min (>60); Estimated Creatinine Clearance 96.04 ml/min; Globulin 3.1 g/dL (2.2-4.2); Glucose 234 mg/dL (74-106); Potassium 4.2 mmol/L (3.5-5.1); Protein, Total 5.9 g/dL (6.4-8.2); Sodium Level 133 mmol/L (136-145)
--- NOTE | 2024-03-13 10:19 | PCM.DC.SUM ---
Providers Date of Admission: 03/12/24 Date of Discharge: 03/13/24 Primary Care Physician: No Primary Care Phys Reason For Visit: MILD ANION GAP METABOLIC ACIDOSIS, INTRACTABLE Diagnosis Discharge Diagnosis (1) Cannabinoid hyperemesis syndrome: Status: Acute Code(s): R11.2 - Nausea with vomiting, unspecified; F12.90 - Cannabis use, unspecified, uncomplicated (2) Acidosis, lactic: Status: Acute Code(s): E87.20 - Acidosis, unspecified (3) Increased anion gap metabolic acidosis: Status: Acute Code(s): E87.29 - Other acidosis Medications at Discharge Home Medications apixaban 5 mg tablet (Eliquis) 5 mg PO BID BLOOD THINNER 01/20/22 carvedilol 3.125 mg tablet 3.125 mg PO BID HEART 01/20/22 dofetilide 125 mcg capsule 125 mcg PO BID AFIB 01/20/22 spironolactone 25 mg tablet 25 mg PO DAILY HEART 01/20/22 sildenafil 50 mg tablet 50 mg PO DAILY PRN SEXUAL ACTIVITY 03/11/24 magnesium oxide 400 mg (241.3 mg magnesium) tablet 800 mg PO BID SUPPLEMENT 03/12/24 sacubitril 97 mg-valsartan 103 mg tablet (Entresto) 1 tab PO BID HEART FAILURE 03/12/24 insulin glargine 100 unit/mL (3 mL) subcutaneous pen (Lantus Solostar U-100 Insulin) 10 unit (0.1 mL) subcut BID #30 mL 03/13/24 pen needle, diabetic 32 gauge x 1/4 #300 ea 03/13/24 Hospital Course Summary of Care Provided Minutes Spent on Discharge: 35 Hospital Course: Patient is a 53-year-old gentleman who presented with intractable nausea vomiting 1. Intractable nausea vomiting secondary to cannabinoid induced hyperemesis syndrome ? Admitted to regular nursing floor for symptom management 2. Diabetes mellitus type 2 ? Patient presented with mild acidosis managed with IV fluid as well as insulin prescription written for insulin on discharge 3. Chronic congestive heart failure with preserved ejection fraction ? Patient had a known EF of 10% from 2019 3 repeat echo recently performed demonstrated EF of 50%. Patient is on guideline directed medical therapy 4. Paroxysmal A-fib ? Patient is on dofetilide as well as carvedilol and apixaban continue Physical Exam Narrative GENERAL: cooperative HEENT: Atraumatic; normocephalic EYES; Anicteric, Normal Conjunctiva NECK; supple, normal thyroid, RESPIRATORY: Diminished to auscultation CARDIOVASCULAR: Regular S1 S2, GI: soft, normoactive bowel sounds, : No Renal angle tenderness; EXTREMITIES: No edema, no clubbing, MUSCULOSKELETAL: no muscle wasting NEURO: Awake; no lateralizing signs. SKIN: No Rash PSYCH; Flat affect Weight / BMI Weight Weight: 78.5 kg Body Mass Index (BMI) 25.5 ABG / Lab / Microbiology Data 03/13/24 05:38 03/13/24 05:38 Laboratory: Laboratory Results - last 24 hr 03/12/24 11:05: WBC 9.1, RBC 5.28, Hgb 16.9 H, Hct 47.0, MCV 89.0, MCH 32.0, MCHC 36.0, RDW Std Deviation 38.7, RDW Coeff of Shaun 11.9, Plt Count 257, MPV 9.7, Immature Gran % (Auto) 0.200, Neut % (Auto) 70.9 H, Lymph % (Auto) 17.5 L, [place] % (Auto) 5.0, Eos % (Auto) 6.0 H, Baso % (Auto) 0.4, Absolute Neuts (auto) 6.5, Absolute Lymphs (auto) 1.59, Nucleated RBC % 0, Sodium 129 L, Potassium 4.3, Chloride 93 L, Carbon Dioxide 19.0 L, Anion Gap 17 H, BUN 16, Creatinine 1.24, Est GFR (MDRD) Af Amer 79, Est GFR (MDRD) Non-Af 65, BUN/Creatinine Ratio 12.9, Glucose 332 H, Lactic Acid 2.2 H*, Calcium 9.4, Total Bilirubin 1.60 H, AST 58 H, ALT 38, Alkaline Phosphatase 101, Total Protein 8.0, Albumin 3.8, Globulin 4.2, Albumin/Globulin Ratio 0.9, Lipase 34, Acetone Level SMALL H 03/12/24 12:17: POC Glucose 323 H 03/12/24 13:39: POC Glucose 270 H 03/12/24 16:04: Sodium 133 L, Potassium 4.0, Chloride 103, Carbon Dioxide 22.0, Anion Gap 8, BUN 17, Creatinine 1.01, Estim Creat Clear Calc 86.53, Est GFR (MDRD) Af Amer 100, Est GFR (MDRD) Non-Af 83, BUN/Creatinine Ratio 16.8, Glucose 170 H, Lactic Acid 0.8, Calcium 8.7 03/13/24 05:38: WBC 6.2, RBC 4.36 L, Hgb 14.1, Hct 39.7 L, MCV 91.1, MCH 32.3 H, MCHC 35.5, RDW Std Deviation 39.8, RDW Coeff of Shaun 11.9, Plt Count 165, MPV 9.6, Immature Gran % (Auto) 0.500, Neut % (Auto) 53.8, Lymph % (Auto) 35.9, [place] % (Auto) 7.9, Eos % (Auto) 1.4, Baso % (Auto) 0.5, Absolute Neuts (auto) 3.4, Absolute Lymphs (auto) 2.23, Nucleated RBC % 0, Sodium 133 L, Potassium 4.2, Chloride 102, Carbon Dioxide 26.0, Anion Gap 5, BUN 11, Creatinine 0.91, Estim Creat Clear Calc 96.04, Est GFR (MDRD) Af Amer 113, Est GFR (MDRD) Non-Af 93, BUN/Creatinine Ratio 12.1, Glucose 234 H, Calcium 8.2 L, Total Bilirubin 1.00, AST 51 H, ALT 29, Alkaline Phosphatase 67, Total Protein 5.9 L, Albumin 2.8 L, Globulin 3.1, Albumin/Globulin Ratio 0.9 ABG: ABG 03/12/24 11:20 Specimen Type GORDON Sample Site Not entered VBG pH 7.47 H VBG pO2 20 L VBG HCO3 19 L VBG Total CO2 19 L VBG O2 Sat (Calc) 39 L VBG Base Excess -5 L POC Mix VBG pCO2 Pt Tmp 25.6 L O2 Delivery Device Not entered D/C Instructions Discharge Diet: 1800 Calorie Control Diet Discharge Activity: Return to Normal Activity Call your doctor if you observe: Fever of 101 or Higher, Shortness of breath, Fainting spells and Chest pain Meaningful Use Info Meaningful Use Meaningful Use Diagnoses (Choose all that apply): None applicable Ischemic Stroke Statin Dosing Therapy Reference: STATIN DOSE THERAPY REFERENCE: * Patients > 75 years receive moderate or high dose statin therapy. * Patients 75 years or YOUNGER should receive HIGH intensity statin dose unless contraindicated. You will be required to document reason for non-treatment if statin daily dose does not meet guidelines. HIGH DOSE STATIN THERAPY DAILY Atorvastatin > than or = to 40 mg Rosuvastatin > than or = to 20 mg Amlodipine + Atorvastatin > than or = to 2.5/40 mg Ezetimibe + Simvastatin 10/80 mg Simvastatin 80mg Discharge Plan Admission Admit Date/Time: 03/12/24 13:33 Attending Provider: Sam Thomas Primary Care Provider: Care Physician,No Primary Consulting Providers: Steffanie Douglas Discharge Orders/Prescriptions Prescriptions: New insulin glargine [Lantus Solostar U-100 Insulin] 100 unit/mL (3 mL) insulin pen 10 unit subcut BID Qty: 30 0RF (DME) pen needle, diabetic 32 gauge x 1/4 needle See Rx Instructions .Route Qty: 300 0RF Rx Instructions: BID Continued dofetilide 125 mcg Capsule 125 mcg PO BID spironolactone 25 mg Tablet 25 mg PO DAILY carvedilol 3.125 mg Tablet 3.125 mg PO BID Eliquis 5 mg Tablet 5 mg PO BID sildenafil 50 mg tablet 50 mg PO DAILY PRN (Reason: SEXUAL ACTIVITY ) magnesium oxide 400 mg (241.3 mg magnesium) tablet 800 mg PO BID Entresto 97-103 mg tablet 1 tab PO BID Referrals / Follow Up: Care Physician,No Primary [Primary Care Provider] - Within 2 Weeks Disposition Disposition (needs filled in before D/C Order can be placed): Home, Self Care Charges/Coding Visit Charges Inpatient E&M: 08632 Disch Hosp >30min
--- NOTE | 2024-03-13 10:30 | CASEMGMT ---
RN CM Face to Face with patient for initial transition planning/care coordination assessment. RN CM introduced self and role at [facility]. Patient lying in bed, alert and oriented, daughter at bedside. Patient willing to participate in assessment and is able to answer all questions appropriately. Care providers, pharmacy, and demographics verified. 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 Patient is independent and able to ambulate stairs. Transportation: self, , daughter DME/HHC: Patient has glucometer with supplies he believes at home but will check with . CM to assist with glucometer script if needed. No previous HHC or SNF. Patient wishes to discharge home, denies needs at discharge. Patient states he has no further needs or concerns at this time. CM to follow for discharge planning needs that may arise. Disposition Plan: Patient to discharge home with family support and follow-up plans in place. Elodia NAM, RN, CM
--- NOTE | 2024-03-13 11:05 | PHA.DC.MC.R ---
Pharmacy [facility] Service has performed discharge medication reconciliation and counseling for this patient. 1. INSULIN GLARGINE 10UNITS SC BID The patient's discharge medication list was reviewed for discrepancies and discrepancies were resolved. The patient was counseled on the following discharge medications and changes in medications for homegoing were reviewed. The Reason for Use, instructions for use, and potential side effects were reviewed for all new medications. The patient's questions regarding all of their medications were answered. The patient was able to verbally demonstrate an understanding of their discharge medications. Patient counseled by pharmacy ancillaryEvelyn. Medications at Discharge Home Medications apixaban 5 mg tablet (Eliquis) 5 mg PO BID BLOOD THINNER 01/20/22 carvedilol 3.125 mg tablet 3.125 mg PO BID HEART 01/20/22 dofetilide 125 mcg capsule 125 mcg PO BID AFIB 01/20/22 spironolactone 25 mg tablet 25 mg PO DAILY HEART 01/20/22 sildenafil 50 mg tablet 50 mg PO DAILY PRN SEXUAL ACTIVITY 03/11/24 magnesium oxide 400 mg (241.3 mg magnesium) tablet 800 mg PO BID SUPPLEMENT 03/12/24 sacubitril 97 mg-valsartan 103 mg tablet (Entresto) 1 tab PO BID HEART FAILURE 03/12/24 insulin glargine 100 unit/mL (3 mL) subcutaneous pen (Lantus Solostar U-100 Insulin) 10 unit (0.1 mL) subcut BID #30 mL 03/13/24 pen needle, diabetic 32 gauge x 1/4 #300 ea 03/13/24
--- NOTE | 2024-03-13 13:37 | CASEMGMT ---
GINA Clifton CM saw the pt for initial assessment. See note. This RN CM to pt room at this time and the pt states that he has a working BGM at home and enough supplies to check his BS. Pt does not need a new Rx. Pt is now prescribed insulin and needles from Dr. Thomas. Pt states that he is aware and denies questions about this. Pt states that the medical team wanted the pt to eat lunch and see if he would be able to tolerate this without any N/V. Pt states that he feels good and is ready for DC. Pt denies further questions or concerns.
== END 2024-03-13 14:02 | disposition home or self-care (01) | DRG 896 ==
LOC: ED 11:22 → PCU 03-13 07:06
PROVIDERS: Admitting Provider Student in an Organized Health Care Education/Training Program; Emergency Provider Emergency Medicine; Visit Provider Internal Medicine
DX: F12.988 Cannabis use, unspecified with other cannabis-induced disorder (principal); K74.60 Unspecified cirrhosis of liver; I11.0 Hypertensive heart disease with heart failure; I50.22 Chronic systolic (congestive) heart failure; I48.0 Paroxysmal atrial fibrillation; E11.65 Type 2 diabetes mellitus with hyperglycemia; R11.2 Nausea with vomiting, unspecified; Z79.01 Long term (current) use of anticoagulants; Z79.899 Other long term (current) drug therapy; Z53.29 Procedure and treatment not carried out because of patient's decision for other reasons; E78.00 Pure hypercholesterolemia, unspecified; F17.220 Nicotine dependence, chewing tobacco, uncomplicated; E87.20 Acidosis, unspecified
CPT/HCPCS: 99284; 36415; 80048; 80053; 82009; 82803; 82962; 83605; 83690; 85025; 93005; 96361; 96374; 96375; 96376; 99221; J7030; A4216; G0378; J2405

== ENCOUNTER → 2024-06-24 | Outpatient (CLI) | payer BC, SELFPAY ==
[2022-01-20 09:33] VITALS: BMI 24.7
[2024-06-24 16:39] LABS: Absolute Lymphocyte Count 2.15 X10^3/uL (0.83-4.51); Absolute Neutrophil Count 3.3 X10^3/uL (2.0-7.7); Basophil# 0.04 X10^3/uL; Basophil% 0.7 % (0-1); Eosinophil# 0.06 X10^3/uL; Hematocrit 39.8 % (40-54); Hemoglobin 13.6 g/dL (13.0-16.5); Lymphocyte # 2.15 X10^3/ul (0.83-4.51); Lymphocyte % 36.1 % (19-41); Mean Corp Hgb Conc 34.2 g/dL (32-36); Mean Corpuscular Hgb 30.2 pg (27.0-32.0); Mean Corpuscular Volume 88.4 fL (80-94); Mean Platelet Vol. 10.7 fl (6.2-12.0); Monocyte% 6.7 % (0-10); NRBC Flagged by Analyzer 0 % (0-5); Neutrophil # 3.29 X10^3/uL (2.7-7.7); Neutrophil % 55.2 % (47-70); Platelet Count 180 K/mm3 (150-450); RBC Distribution Width CV 12.2 % (11.6-14.6); RBC Distribution Width SD 39.2 fl (35.1-43.9)
[2024-06-24 17:17] LABS: Hemoglobin A1c 6.6 % (3.8-5.6)
[2024-06-24 17:27] LABS: AST(SGOT) 15 U/L (15-37); Alanine Aminotransfer ALT/SGPT 15 U/L (16-61); Albumin, Serum 3.8 g/dL (3.2-5.0); Alkaline Phosphatase 74 U/L (45-117); Anion Gap 6 (5-15); BUN 19 mg/dL (7-18); BUN/Creat Ratio 18.1 RATIO (10-20); Calcium,Total 9.2 mg/dL (8.5-10.1); Chloride 100 mmol/L (98-107); Cholesterol 273 mg/dL (200); Creatinine, Serum 1.05 mg/dL (0.70-1.30); EST Glomerular Filtration Rate 79 mL/min (>60); Est Glom Filt Rate - Afr Amer 96 mL/min (>60); Globulin 3.7 g/dL (2.2-4.2); Glucose 132 mg/dL (74-106); High Density Lipoprotein 39 mg/dL; Potassium 4.4 mmol/L (3.5-5.1); Protein, Total 7.5 g/dL (6.4-8.2); Sodium Level 133 mmol/L (136-145); Triglycerides 654 mg/dL
== END | disposition home or self-care (01) ==
LOC: BIMLAB 14:15
PROVIDERS: PCP Internal Medicine; Referring Provider Internal Medicine; Visit Provider Internal Medicine
DX: E11.9 Type 2 diabetes mellitus without complications (principal)
CPT/HCPCS: 36415; 80053; 80061; 83036; 85025

== ENCOUNTER 2024-08-12 00:51 | Emergency (ER) | payer BC, SELFPAY ==
[2022-01-20 09:33] VITALS: BMI 24.7
[2024-08-12] VITALS (8 sets, daily range): BP systolic 113–175; BP diastolic 5–112; PULSE 63–90; RESP 12–20; TEMP 36.2–37.1; O2SAT 82–100; BMI 25.2
[2024-08-12 01:20] LABS: Absolute Lymphocyte Count 0.93 X10^3/uL (0.83-4.51); Absolute Neutrophil Count 10.2 X10^3/uL (2.0-7.7); Basophil# 0.02 X10^3/uL; Basophil% 0.2 % (0-1); Hematocrit 39.9 % (40-54); Hemoglobin 14.3 g/dL (13.0-16.5); Lymphocyte # 0.93 X10^3/ul (0.83-4.51); Mean Corp Hgb Conc 35.8 g/dL (32-36); Mean Corpuscular Volume 83.6 fL (80-94); Mean Platelet Vol. 10.6 fl (6.2-12.0); Monocyte# 0.39 X10^3/uL; Monocyte% 3.4 % (0-10); NRBC Flagged by Analyzer 0 % (0-5); Neutrophil # 10.17 X10^3/uL (2.7-7.7); Platelet Count 164 K/mm3 (150-450); RBC Distribution Width CV 12.2 % (11.6-14.6); RBC Distribution Width SD 37.2 fl (35.1-43.9); Red Blood Count 4.77 M/mm3 (4.6-6.2); White Blood Count 11.6 K/mm3 (4.4-11.0)
[2024-08-12] MEDS: Ondansetron 4 MG/2 ML Vial IV (01:22)
[2024-08-12] MEDS: Morphine 4 MG/ML Syringe IV (01:23)
[2024-08-12 01:34] LABS: Anion Gap 12 (5-15); BUN 12 mg/dL (7-18); BUN/Creat Ratio 9.6 RATIO (10-20); Calcium,Total 9.9 mg/dL (8.5-10.1); Chloride 102 mmol/L (98-107); Creatinine, Serum 1.25 mg/dL (0.70-1.30); EST Glomerular Filtration Rate 65 mL/min (>60); Est Glom Filt Rate - Afr Amer 78 mL/min (>60); Estimated Creatinine Clearance 69.91 ml/min; Glucose 289 mg/dL (74-106); Lipase 26 U/L (13-75); Potassium 3.3 mmol/L (3.5-5.1); Sodium Level 136 mmol/L (136-145)
--- NOTE | 2024-08-12 02:12 | CT_ITS ---
STUDY: CT ABDOMEN AND PELVIS WITH CONTRAST REASON FOR EXAM: Male, 53 years old. abd pain RADIATION DOSAGE (If Supplied By Facility): CTDIvol = ( 12.84 ) mGy, DLP = ( 498.65 ) mGycm TECHNIQUE: IV 100mL Isovue-370 was administered. Transaxial images were obtained from the dome of the diaphragm to the symphysis pubis in the portal venous phase. Multiplanar coronal and sagittal images were reformatted. Individualized Dose Optimization Techniques Were Used For This CT. COMPARISON: Prior study dated: 03/11/2024 FINDINGS: LOWER CHEST: Lung bases are clear. No cardiomegaly or pericardial effusion. LIVER: The liver is normal in size, shape, and attenuation. No focal mass. GALLBLADDER AND BILIARY TREE: The gallbladder is normally distended. No gallstones. No gallbladder wall thickening or edema. No pericholecystic fluid. No intra- or extrahepatic biliary ductal dilation. PANCREAS: No focal cystic or solid mass. SPLEEN: Normal size without focal cystic or solid mass. ADRENAL GLANDS: No nodules. KIDNEYS AND URETERS: Normal renal size and position. No hydronephrosis or nephrolithiasis. PERITONEUM: No ascites or free air. No other fluid collection. BOWEL: The stomach is unremarkable. Normal caliber small bowel. There is no obstruction. No colonic wall thickening. Questionable left rectal wall collection measuring 2 cm, series 601 image 72 and series 2 image 113. This is approximately 3 cm from the anal verge.. No evidence of acute appendicitis. LYMPH NODES: No enlarged mesenteric or retroperitoneal lymph nodes. VESSELS: Aorta is non-dilated. URINARY BLADDER: Unremarkable. REPRODUCTIVE ORGANS: No pelvic masses. ABDOMINAL WALL: No discrete abdominal or pelvic wall hernia. BONES: No lytic or blastic abnormality. Mild degenerative change throughout the spine. CT/Abdomen/Pelvis W IV Cont ONLY IMPRESSION: Questionable left rectal wall collection. This could just be heterogeneity of enhancement of the rectal wall. No inflammatory change seen. Otherwise no acute finding in the abdomen or pelvis. Electronically Signed: Barney Barrett MD at 3:37 EST ,
[2024-08-12 02:30] LABS: AST(SGOT) 13 U/L (15-37); Alanine Aminotransfer ALT/SGPT 14 U/L (16-61); Albumin, Serum 4.5 g/dL (3.2-5.0); Alkaline Phosphatase 72 U/L (45-117); Bilirubin, Direct 0.24 mg/dL (0.00-0.30); Globulin 3.5 g/dL (2.2-4.2)
[2024-08-12] MEDS: 0.9% Normal Saline (1000mL) 1,000 ML 999 ML IV (02:37)
[2024-08-12] MEDS: HYDROmorphone 1 MG/ML Syringe IV (02:38)
--- NOTE | 2024-08-12 04:03 | EX.ED.DYSGE1 ---
HPI History of Present Illness Chief Complaint: Abd Pain Informant: patient and spouse/S.O. Narrative Narrative: Patient is a 53-year-old male with past medical history of paroxysmal atrial fibrillation currently on Eliquis. He does have a history of hypertension insulin-dependent type 2 diabetes and congestive heart failure. He states that this evening he went over to his mother's for dinner. He states he ate more than he normally does as he was at a relatives house. He states that he was on his way home when suddenly he developed generalized abdominal pain and had bouts of nausea and vomiting. He states symptoms persisted for the last 5 to 6 hours and as they are not resolving with time presents for evaluation. His states that she was there for the meal as well and ate the same foods and did not have any type of symptoms. Patient denies any history of gastroparesis with his history of diabetes and he also denies any known sick contacts [facility] Medical History (Updated 08/12/24 @ 04:[address] Omar Barakat, DO) Hypertension Health care maintenance Type 2 diabetes mellitus Kidney stones High triglycerides Diabetes (10/09/21) Atrial fibrillation Heart failure Cirrhosis Abdominal ascites High cholesterol Home Medications ?Medication ?Instructions ?Recorded ?Last Taken ?Type apixaban 5 mg tablet (Eliquis) 5 mg PO DAILY BLOOD THINNER 01/20/22 03/11/24 History carvedilol 3.125 mg tablet 3.125 mg PO DAILY HEART 01/20/22 03/11/24 History dofetilide 125 mcg capsule 125 mcg PO BID AFIB 01/20/22 03/11/24 History spironolactone 25 mg tablet 25 mg PO DAILY HEART 01/20/22 03/11/24 History sildenafil 50 mg tablet 50 mg PO DAILY PRN SEXUAL ACTIVITY 03/11/24 Unknown History magnesium oxide 400 mg (241.3 mg 800 mg PO DAILY SUPPLEMENT 03/12/24 03/11/24 History magnesium) tablet sacubitril 97 mg-valsartan 103 mg 1 tab PO DAILY HEART FAILURE 03/12/24 03/11/24 History tablet (Entresto) pen needle, diabetic 32 gauge x #300 ea 03/13/24 Unknown Rx 1/4 insulin glargine 100 unit/mL (3 10 unit (0.1 mL) subcut ONCE 3 06/26/24 Unknown Rx mL) subcutaneous pen (Lantus months #9 mL Solostar U-100 Insulin) ondansetron 4 mg disintegrating 4 mg PO TID PRN nausea and 08/12/24 Unknown Rx tablet vomiting #21 tabs oxycodone 5 mg tablet 5 mg PO Q6H PRN pain 3 days #12 08/12/24 Unknown Rx tabs Allergy/AdvReac Type Severity Reaction Status Date / Time No Known Allergies Allergy Verified 08/12/24 00:58 Family History Father Myocardial infarction, Onset Age: 49 Heart disease Other AA (alcohol abuse) DVT (deep venous thrombosis) Social History (Updated 06/19/24 @ 16:41 by Renita Scott LPN) adopted: No household members: other details: and son current occupational status: employed 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 ) Smoking Status: Never smoker Smokeless tobacco user: chewing tobacco and other alcohol intake: current Alcohol type: beer details: 3-12 per week substance use type: marijuana and other details: daily marijuana use what type of physical activity do you participate in: walking frequency: 5-6 times per week seatbelt use: always do you feel safe at home: Yes ROS ROS ED Constitutional Constitutional ED: Reports chills, fever(s) and subjective Eyes Eyes: Denies change in vision ENT ENT ED: Denies sore throat Cardiovascular Cardiovascular: Denies chest pain Respiratory/Chest Respiratory/Chest: Denies cough or dyspnea Gastrointestinal Gastrointestinal: Reports abdominal pain, nausea and vomiting; Denies diarrhea Genitourinary Genitourinary ED: Denies dysuria, hematuria or urinary frequency Musculoskeletal Musculoskeletal: Reports myalgias Integumentary Denies rash Neurologic Neurologic: Denies headache(s) Hematologic/Lymphatic Hematologic/Lymphatic: Denies easy bleeding or easy bruising EXAM Physical Exam Const Vital Signs: 08/12/24 00:54 08/12/24 00:57 08/12/24 01:38 Temperature 98.8 F 98.8 F Temperature Source Oral Oral Pulse Rate 68 63 Respiratory Rate 18 18 Blood Pressure 175/93 H 175/93 H Blood Pressure Mean 120 120 Pulse Ox 100 100 82 Oxygen Delivery Method Room Air Room Air Room Air Oxygen Flow Rate (L/min) 08/12/24 01:49 08/12/24 01:57 08/12/24 02:00 Temperature 97.6 F L 97.8 F Temperature Source Temporal Temporal Pulse Rate 78 83 85 Respiratory Rate 12 20 H 18 Blood Pressure 116/76 169/112 H 169/112 H Blood Pressure Mean 89 131 131 Pulse Ox 97 100 100 Oxygen Delivery Method Nasal Cannula Nasal Cannula Nasal Cannula Oxygen Flow Rate (L/min) 2 2 2 08/12/24 03:00 08/12/24 03:00 Temperature 98 F Temperature Source Temporal Pulse Rate 77 80 Respiratory Rate 14 12 Blood Pressure 113/75 113/5 L Blood Pressure Mean 87 41 Pulse Ox 97 95 Oxygen Delivery Method Room Air Room Air Oxygen Flow Rate (L/min) Positive well nourished and well developed General Appearance ED: well developed; Negative for pallor HEENT Reports dry mucous membranes HEENT Narrative: Mucous membranes are mildly dry and tacky No tongue or lip swelling no oral lesions no airway edema or compromise No secondary findings to suggest infection in the posterior pharynx Mouth ED: Yes dry mucous membranes Mouth: dry mucous membranes Eyes PERRL and EOMs intact bilaterally General Eye ED: Negative for scleral icterus Neck supple and no JVD Neck Narrative: No nuchal rigidity or meningeal signs Resp normal respiratory effort and clear to auscultation bilaterally Cardio regular rate and regular rhythm GI non-distended and no masses GI Narrative: Abdomen is soft and nondistended with hyperactive bowel sounds. There is diffuse pain with palpation without voluntary guarding or rigidity. No pulsatile mass or fluid wave. Auscultation: hyperactive bowel sounds Palpation: soft Back/Spine no CVA tenderness Extremity normal to inspection Neuro oriented x3, CN's II-XII intact bilaterally and no sensory deficits noted Sensorium / Orientation: alert Motor Exam: strength 5/5 throughout Psych mental status grossly normal Skin no rashes or lesions noted Skin Narrative: Skin turgor slightly increased General Skin Exam: Negative for jaundice or pallor MDM MDM MDM Narrative Medical decision making narrative: Patient presented to the ER hypertensive but has a past medical history of this. He reported bouts of nausea and vomiting after eating. There is concern for food poisoning but he is not having diarrhea and his was at the same meal and ate the same food and does not have any symptoms. There is concern for colitis versus diverticulitis versus intestinal abscess or perforation versus biliary colic or acute cholecystitis or pancreatitis. Therefore basic labs and a CT scan were ordered. Labs show faint leukocytosis with a WBC count of 11.6 and mild left shift with his neutrophil count elevated at 10.2. Based on the leukocytosis and his persistent pain a CT scan with IV contrast was ordered. The CT scan revealed no signs of acute cholecystitis pancreatitis colitis diverticulitis abscess or perforation. It did document a potential mass in the left rectum. The patient does not have rectal pain he is not having bleeding he is abdominal pain is diffuse and therefore this does not clinically correlate and the patient therefore does not want to undergo a rectal exam. After receiving medication in the ER the patient reports his pain is now down to a value of a 4 and on palpation his abdomen remains soft and nonsurgical. Therefore with improvement of pain and vital signs CT scan not showing signs of perforation abscess obstruction or obvious infection and his lab work not showing signs of DKA or HHS or acute kidney injury there is no need for further intervention at this time and he can be discharged home with symptomatic care History & Record Review Discussion w/independent historian: Patient and Significant other Lab Data Attestation: I reviewed the patient's lab results. Labs: Laboratory Results - last 24 hr 08/12/24 00:58 WBC 11.6 H RBC 4.77 Hgb 14.3 Hct 39.9 L MCV 83.6 MCH 30.0 MCHC 35.8 RDW Std Deviation 37.2 RDW Coeff of Shaun 12.2 Plt Count 164 MPV 10.6 Immature Gran % (Auto) 0.400 Neut % (Auto) 88.0 H Lymph % (Auto) 8.0 L [place] % (Auto) 3.4 Eos % (Auto) 0.0 Baso % (Auto) 0.2 Absolute Neuts (auto) 10.2 H Absolute Lymphs (auto) 0.93 Nucleated RBC % 0 Sodium 136 Potassium 3.3 L Chloride 102 Carbon Dioxide 22.0 Anion Gap 12 BUN 12 Creatinine 1.25 Estim Creat Clear Calc 69.91 Est GFR (MDRD) Af Amer 78 Est GFR (MDRD) Non-Af 65 BUN/Creatinine Ratio 9.6 L Glucose 289 H Calcium 9.9 Total Bilirubin 0.90 Direct Bilirubin 0.24 AST 13 L ALT 14 L Alkaline Phosphatase 72 Total Protein 8.0 Albumin 4.5 Globulin 3.5 Lipase 26 Radiography Diagnostic Testing: Clinical Impression(s) from Imaging Studies Abdomen/Pelvis CT 08/12/24 02:12 IMPRESSION: Questionable left rectal wall collection. This could just be heterogeneity of enhancement of the rectal wall. No inflammatory change seen. Otherwise no acute finding in the abdomen or pelvis. Electronically Signed: Barney Barrett MD at 3:37 EST , Discharge Plan Triage Chief Complaint: Abd Pain ED Provider: Omar Barakat Dx/Rx/DC Orders Clinical Impression: Nonspecific abdominal pain, Nausea & vomiting, Hypertension, CHF (congestive heart failure), Paroxysmal atrial fibrillation, Diabetes mellitus type 2, insulin dependent, Current use of senior care anticoagulation Instructions: Abdominal Pain, ED Diabetic Gastroparesis Prescriptions: New oxycodone 5 mg tablet 5 mg PO Q6H PRN (Reason: pain) 3 Days Qty: 12 0RF ondansetron 4 mg tablet,disintegrating 4 mg PO TID PRN (Reason: nausea and vomiting) Qty: 21 0RF No Action dofetilide 125 mcg Capsule 125 mcg PO BID spironolactone 25 mg Tablet 25 mg PO DAILY carvedilol 3.125 mg Tablet 3.125 mg PO DAILY Eliquis 5 mg Tablet 5 mg PO DAILY sildenafil 50 mg tablet 50 mg PO DAILY PRN (Reason: SEXUAL ACTIVITY ) magnesium oxide 400 mg (241.3 mg magnesium) tablet 800 mg PO DAILY Entresto 97-103 mg tablet 1 tab PO DAILY (DME) pen needle, diabetic 32 gauge x 1/4 needle See Rx Instructions .Route Qty: 300 0RF Rx Instructions: BID insulin glargine [Lantus Solostar U-100 Insulin] 100 unit/mL (3 mL) insulin pen 10 unit subcut ONCE 90 Days Qty: 9 1RF Primary Care Provider: Sterling Masterson Referrals: Sterling Masterson MD [Primary Care Provider] - Activity Restrictions/Additional Instructions: Please keep yourself well-hydrated and eat a bland diet for the next few days. Your history and exam is most consistent with a viral stomach infection which will last anywhere from 12 hours to 7 days with the average being 3 days. Take the prescribed medication as directed to control symptoms and return to the ER should you have any further concerns or develop a fever over 100.4 or have intractable pain despite your prescribed medications Print Language: [place] Disposition Disposition: Home, Self Care Discharge Date/Time: 08/12/24 04:13
[2024-08-12] MEDS: oxyCODONE 5 MG Tablet 10 MG PO (04:10)
== END 2024-08-12 04:13 | disposition home or self-care (01) ==
PROVIDERS: Emergency Provider Emergency Medicine; PCP Internal Medicine; Visit Provider Emergency Medicine
DX: R10.9 Unspecified abdominal pain (principal); I11.0 Hypertensive heart disease with heart failure; I50.9 Heart failure, unspecified; I48.0 Paroxysmal atrial fibrillation; E11.9 Type 2 diabetes mellitus without complications; Z79.4 Long term (current) use of insulin; R11.2 Nausea with vomiting, unspecified; Z79.01 Long term (current) use of anticoagulants; E78.00 Pure hypercholesterolemia, unspecified; Z79.899 Other long term (current) drug therapy; F17.220 Nicotine dependence, chewing tobacco, uncomplicated
CPT/HCPCS: 74177; 80048; 80076; 83690; 85025; 96361; 96374; 96375; 99283; J7030; Q9967; A4216; J2405

== ENCOUNTER 2024-11-02 13:21 | Emergency (ER) | payer OTHER, SELFPAY ==
[2022-01-20 09:33] VITALS: BMI 24.7
[2024-11-02 13:22] VITALS: BP 183/119; PULSE 95; RESP 18; TEMP 37.2; O2SAT 99
[2024-11-02 13:25] VITALS: BMI 25.2
--- NOTE | 2024-11-02 13:30 | CT_ITS ---
STUDY: CT ABDOMEN AND PELVIS WITH CONTRAST REASON FOR EXAM: Male, 53 years old. epigastric pain RADIATION DOSAGE (If Supplied By Facility): CTDIvol = ( 11.69 ) mGy, DLP = ( 722.65 ) mGycm TECHNIQUE: Transaxial images were obtained from the dome of the diaphragm to the symphysis pubis without oral contrast. IV 100mL Isovue-370 was administered. Sagittal and coronal images were reconstructed. Individualized dose optimization techniques were used for this CT. COMPARISON: 08/12/2024.. FINDINGS: The visualized lung bases are unremarkable. The visualized portions of the heart are within normal limits. Normal liver. Normal gallbladder and extrahepatic biliary system. Normal spleen. Normal pancreas. Normal bilateral adrenal glands. Normal right kidney. Normal left kidney. Evaluation of the GI tract is limited by absence of oral contrast. Cannot exclude stomach wall thickening. No dilated loops of bowel or evidence for obstruction. Cannot exclude segmental thickening of the cole of the small or large bowel. Cannot exclude enteritis or colitis. Appendix within normal limits. Normal abdominal aorta. Normal inferior vena cava. Normal retroperitoneum. Normal urinary bladder. There is enlargement of the prostate gland. Normal abdominal wall. Normal osseous structures. CT/Abdomen/Pelvis W IV Cont ONLY IMPRESSION: No definite acute or significant abnormality seen. Electronically Signed: Lv Gilmore MD at 15:57 EST ,
[2024-11-02 13:45] LABS: Absolute Lymphocyte Count 2.78 X10^3/uL (0.83-4.51); Absolute Neutrophil Count 8.4 X10^3/uL (2.0-7.7); Basophil# 0.03 X10^3/uL; Basophil% 0.2 % (0-1); Eosinophil# 0.02 X10^3/uL; Eosinophils% 0.2 % (0-5); Hematocrit 46.1 % (40-54); Hemoglobin 16.2 g/dL (13.0-16.5); Lymphocyte # 2.78 X10^3/ul (0.83-4.51); Mean Corp Hgb Conc 35.1 g/dL (32-36); Mean Corpuscular Hgb 29.5 pg (27.0-32.0); Mean Corpuscular Volume 83.8 fL (80-94); Monocyte# 0.85 X10^3/uL; NRBC Flagged by Analyzer 0 % (0-5); Neutrophil # 8.35 X10^3/uL (2.7-7.7); Neutrophil % 69.2 % (47-70); Platelet Count 226 K/mm3 (150-450); RBC Distribution Width CV 12.3 % (11.6-14.6); RBC Distribution Width SD 37.2 fl (35.1-43.9); White Blood Count 12.1 K/mm3 (4.4-11.0)
[2024-11-02] MEDS: Ondansetron 4 MG/2 ML Vial IV (13:45)
[2024-11-02] MEDS: 0.9% Normal Saline (1000mL) 1,000 ML 999 ML IV (13:45)
[2024-11-02] MEDS: Morphine 4 MG/ML Syringe IV ×2 (13:46→15:14)
[2024-11-02 13:52] LABS: Bedside Glucose 263 mg/dL (74-106)
[2024-11-02 13:59] LABS: AST(SGOT) 12 U/L (15-37); Alanine Aminotransfer ALT/SGPT 10 U/L (16-61); Albumin, Serum 4.4 g/dL (3.2-5.0); Alkaline Phosphatase 79 U/L (45-117); Anion Gap 11 (5-15); BUN 22 mg/dL (7-18); BUN/Creat Ratio 15.2 RATIO (10-20); Calcium,Total 10.5 mg/dL (8.5-10.1); Chloride 95 mmol/L (98-107); Creatinine, Serum 1.45 mg/dL (0.70-1.30); EST Glomerular Filtration Rate 54 mL/min (>60); Est Glom Filt Rate - Afr Amer 66 mL/min (>60); Estimated Creatinine Clearance 60.27 ml/min; Globulin 4.3 g/dL (2.2-4.2); Glucose 234 mg/dL (74-106); Lipase 37 U/L (13-75); Potassium 3.5 mmol/L (3.5-5.1); Protein, Total 8.7 g/dL (6.4-8.2); Sodium Level 132 mmol/L (136-145)
--- NOTE | 2024-11-02 15:00 | EDS_ITS ---
<Statement entered by Loi Smith DO - 11/05/24 17:08> Patient was seen and examined with physician mechanic assistant Madhavi All components of the history and physical confirmed and agreed. History of present illness and physical exam: Patient is a 53-year-old male with past medical history hypertension, atrial fibrillation, CHF, type 2 diabetes who presents to the emergency department chief complaint of abdominal pain vomiting diarrhea. He states that he has been vomiting continuously for the last 3 days and has not been able to keep anything down which prompted him to come here for further evaluation management. Patient states that he does smoke marijuana daily but stopped during his illness for the past 3 days denies any surgical history on his abdomen. Review of systems: Agree with above Physical exam: Agree with above MDM Patient is a 53-year-old male who presented to the emerged part with chief complaint of abdominal pain nausea vomiting diarrhea for the last 3 days. On the differential diagnose includes but not limited to viral gastroenteritis, pancreatitis, small bowel obstruction. Once workup is obtained reviewed he will be reevaluated. Patient CBC reviewed showed a leukocytosis of 12,000, hemoglobin 16.2, platelet count normal at 226. Patient sodium was 132, potassium normal 3.5, creatinine was elevated 1.45. Patient's AST and ALT were 12 and 10 respectively lipase was normal at 37. Patient CT abdomen pelvis with IV contrast was reviewed and showed no acute abnormalities identified. On reevaluation the patient he is feeling better and would like to go home. Patient was given prescription for omeprazole and Phenergan. He was encouraged to follow-up with his primary care physician outpatient setting. He is also referred to gastroenterology and was advised to follow-up with him again as he is followed with him in the past. All question concerns answered is discharged home in stable condition. Final impression: Abdominal pain Nausea and vomiting Disposition: Patient will be discharged home in stable condition Supervising attending attestation: Loi Smith D.O. [facility] History of Present Illness Chief Complaint: Abd Pain Narrative Narrative: 53-year-old male with PMH of HTN, A-fib, CHF, DM2 presents with 3 days of epigastric pain and vomiting and diarrhea. He states he has been vomiting continuously. He has not been able to keep down fluids or his medications. He has not taken his Lantus over the last few days for diabetes because he has not been eating. He denies hematemesis or melena or hematochezia. He has a listed diagnosis of Croft and cirrhosis but when I questioned him about this he d enies liver disease. He denies alcohol use. He smokes marijuana daily but stopped during this illness. He has no abdominal surgical history. [facility] Medical History (Updated 11/02/24 @ 16:02 by ELIZABETH Gates) Hypertension Health care maintenance Type 2 diabetes mellitus Kidney stones High triglycerides Diabetes (10/09/21) Atrial fibrillation Heart failure Cirrhosis Abdominal ascites High cholesterol Home Medications ?Medication ?Instructions ?Recorded ?Last Taken ?Type apixaban 5 mg tablet (Eliquis) 5 mg PO DAILY BLOOD THINNER 01/20/22 03/11/24 History carvedilol 3.125 mg tablet 3.125 mg PO DAILY HEART 01/20/22 03/11/24 History dofetilide 125 mcg capsule 125 mcg PO BID AFIB 01/20/22 03/11/24 History spironolactone 25 mg tablet 25 mg PO DAILY HEART 01/20/22 03/11/24 History sildenafil 50 mg tablet 50 mg PO DAILY PRN SEXUAL ACTIVITY 03/11/24 Unknown History magnesium oxide 400 mg (241.3 mg 800 mg PO DAILY SUPPLEMENT 03/12/24 03/11/24 History magnesium) tablet sacubitril 97 mg-valsartan 103 mg 1 tab PO DAILY HEART FAILURE 03/12/24 03/11/24 History tablet (Entresto) pen needle, diabetic 32 gauge x #300 ea 03/13/24 Unknown Rx 1/4 insulin glargine 100 unit/mL (3 10 unit (0.1 mL) subcut ONCE 3 06/26/24 Unknown Rx mL) subcutaneous pen (Lantus months #9 mL Solostar U-100 Insulin) ondansetron 4 mg disintegrating 4 mg PO TID PRN nausea and 08/12/24 Unknown Rx tablet vomiting #21 tabs oxycodone 5 mg tablet 5 mg PO Q6H PRN pain 3 days #12 08/12/24 Unknown Rx tabs omeprazole 40 mg capsule,delayed 40 mg PO DAILY 30 days #30 caps 11/02/24 Unknown Rx release promethazine 25 mg tablet 25 mg PO TID PRN nausea and 11/02/24 Unknown Rx vomiting 4 days #12 tabs Allergy/AdvReac Type Severity Reaction Status Date / Time No Known Allergies Allergy Verified 08/12/24 00:58 Family History Father Myocardial infarction, Onset Age: 49 Heart disease Other AA (alcohol abuse) DVT (deep venous thrombosis) Social History adopted: No household members: other details: and son current occupational status: employed 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 CVS: Negative for chest pain, syncope. Respiratory: Negative for shortness of breath. GI: Positive for abdominal pain, nausea, vomiting, diarrhea. Negative for melena, hematochezia. : Negative for dysuria, hematuria or frequency. EXAM Physical Exam Narrative Exam Narrative: CONST: Patient groaning and appears uncomfortable but nontoxic EYES: Normal inspection. NECK: Normal inspection. RESP: No respiratory distress, CTAB. CVS: Regular rate and rhythm, no murmur, no gallop. ABD: Soft with epigastric tenderness, minimal RUQ tenderness and negative Harris sign, no guarding or rebound, nondistended, no hepatosplenomegaly. Back: Normal inspection, no CVA tenderness. SKIN: Color normal, no rash, warm, dry, intact. EXTREMITIES: Normal appearance, no pedal edema. NEURO: Alert and answering questions appropriately. PSYCH: Normal affect. Const Vital Signs: 11/02/24 13:22 11/02/24 15:16 11/02/24 16:23 Temperature 98.9 F 98.9 F Temperature Source Oral Pulse Rate 95 79 79 Respiratory Rate 18 22 H 22 H Blood Pressure 183/119 H 192/103 H 192/103 H Blood Pressure Mean 140 132 132 Pulse Ox 99 99 99 Oxygen Delivery Method Room Air Room Air MDM MDM MDM Narrative Medical decision making narrative: History gathered from: Patient and 53-year-old male has had epigastric pain and N/V/D x 3 days. He appears uncomfortable but nontoxic. He was hypertensive at 183/119 with otherwise normal vital signs. Normal cardiopulmonary exam. He is tender in epigastric region without peritoneal signs. No significant RUQ tenderness. Blood work shows WBC of 12.1, normal hemoglobin and platelets. He has mildly elevated creatinine with BUN of 22, creatinine 1.45. His baseline is around 0.9?1.1. So dium is slightly low at 132 which is chronic. Glucose is 234 with normal CO2 and anion gap. Total bilirubin is 1.70 but the rest of his liver panel and lipase are normal. It looks like he has had intermittent elevated total bilirubin in the past. CT shows no acute findings. Initially he had been given IV morphine/Zofran and then a second dose of morphine and Protonix which she states helped much more. I discussed the possibilities include gastritis or cannabis hyperemesis syndrome or gastroenteritis. I prescribed omeprazole and Phenergan. He states he had Zofran ODT at home and it helped in the past but not during this present illness so he tried a different antiemetic. He has seen Dr. Kenny several years ago and I recommended he follow-up again. Return precautions discussed and he was discharged in stable condition. Lab Data Attestation: I reviewed the patient's lab results. Labs: Laboratory Results - last 24 hr 11/02/24 11/02/24 13:32 13:37 WBC 12.1 H RBC 5.50 Hgb 16.2 Hct 46.1 MCV 83.8 MCH 29.5 MCHC 35.1 RDW Std Deviation 37.2 RDW Coeff of Shaun 12.3 Plt Count 226 MPV 10.0 Immature Gran % (Auto) 0.400 Neut % (Auto) 69.2 Lymph % (Auto) 23.0 Desha % (Auto) 7.0 Eos % (Auto) 0.2 Baso % (Auto) 0.2 Absolute Neuts (auto) 8.4 H Absolute Lymphs (auto) 2.78 Nucleated RBC % 0 Sodium 132 L Potassium 3.5 Chloride 95 L Carbon Dioxide 26.0 Anion Gap 11 BUN 22 H Creatinine 1.45 H Estim Creat Clear Calc 60.27 Est GFR (MDRD) Af Amer 66 Est GFR (MDRD) Non-Af 54 L BUN/Creatinine Ratio 15.2 Glucose 234 H Calcium 10.5 H Total Bilirubin 1.70 H Direct Bilirubin 0.30 AST 12 L ALT 10 L Alkaline Phosphatase 79 Total Protein 8.7 H Albumin 4.4 Globulin 4.3 H Lipase 37 POC Glucose 263 H Radiography Diagnostic Testing: Clinical Impression(s) from Imaging Studies Abdomen/Pelvis CT 11/02/24 13:30 IMPRESSION: No definite acute or significant abnormality seen. Electronically Signed: Lv Gilmore MD at 15:57 EST , Discharge Plan Triage Chief Complaint: Abd Pain ED Midlevel Provider: Madhavi Hannon ED Provider: Loi Smith Dx/Rx/DC Orders Clinical Impression: Epigastric abdominal pain, Nausea and vomiting Instructions: ED Diet Vomiting Diarrhea, ED Epigastric Pain Uncertain Cause Prescriptions: New promethazine 25 mg tablet 25 mg PO TID PRN (Reason: nausea and vomiting) 4 Days Qty: 12 0RF omeprazole 40 mg capsule,delayed release(DR/EC) 40 mg PO DAILY 30 Days Qty: 30 0RF No Action dofetilide 125 mcg Capsule 125 mcg PO BID spironolactone 25 mg Tablet 25 mg PO DAILY carvedilol 3.125 mg Tablet 3.125 mg PO DAILY Eliquis 5 mg Tablet 5 mg PO DAILY sildenafil 50 mg tablet 50 mg PO DAILY PRN (Reason: SEXUAL ACTIVITY ) magnesium oxide 400 mg (241.3 mg magnesium) tablet 800 mg PO DAILY Entresto 97-103 mg tablet 1 tab PO DAILY (DME) pen needle, diabetic 32 gauge x 1/4 needle See Rx Instructions .Route Qty: 300 0RF Rx Instructions: BID oxycodone 5 mg tablet 5 mg PO Q6H PRN (Reason: pain) 3 Days Qty: 12 0RF ondansetron 4 mg tablet,disintegrating 4 mg PO TID PRN (Reason: nausea and vomiting) Qty: 21 0RF insulin glargine [Lantus Solostar U-100 Insulin] 100 unit/mL (3 mL) insulin pen 10 unit subcut ONCE 90 Days Qty: 9 1RF Primary Care Provider: Sterling Masterson Referrals: Sterling Masterson MD [Primary Care Provider] - Friend,Red, DO [Med Staff - Active Staff] - Activity Restrictions/Additional Instructions: Use Phenergan as needed for nausea and vomiting. I recommend clear fluids today and tomorrow you can start to trial a bland diet as tolerated. Follow-up with Dr. Kenny. If symptoms worsen return to the ER. Print Language: Danish Disposition Disposition: Home, Self Care
[2024-11-02] MEDS: Pantoprazole Sodium 40 MG in 0.9% Normal Saline (100mL MB+) 100 ML 330 MG IV (15:13)
[2024-11-02 15:16] VITALS: BP 192/103; PULSE 79; RESP 22; O2SAT 99
[2024-11-02 16:23] VITALS: BP 192/103; PULSE 79; RESP 22; TEMP 37.2; O2SAT 99
== END 2024-11-02 17:16 | disposition home or self-care (01) ==
PROVIDERS: Physician Assistant; Emergency Provider Emergency Medicine; PCP Internal Medicine; Visit Provider Emergency Medicine
DX: R10.13 Epigastric pain (principal); I11.0 Hypertensive heart disease with heart failure; I50.9 Heart failure, unspecified; I48.91 Unspecified atrial fibrillation; E11.9 Type 2 diabetes mellitus without complications; Z79.4 Long term (current) use of insulin; E78.00 Pure hypercholesterolemia, unspecified; R11.2 Nausea with vomiting, unspecified; Z79.01 Long term (current) use of anticoagulants; Z79.899 Other long term (current) drug therapy; F17.220 Nicotine dependence, chewing tobacco, uncomplicated
CPT/HCPCS: 74177; 80048; 80076; 82962; 83690; 85025; 96361; 96365; 96375; 96376; 99283; Q9967; A4216; J2405

== ENCOUNTER → 2025-03-12 | Outpatient (CLI) | payer OTHER, SELFPAY ==
[2022-01-20 09:33] VITALS: BMI 24.7
[2025-03-12 12:57] LABS: Cholesterol 238 mg/dL (<=200); High Density Lipoprotein 47 mg/dL; Low Density Lipoprotein Calc. 162 mg/dL; Triglycerides 147 mg/dL; Very Low Density Lipoprotein 29 mg/dL (5-40); cholesterol:hdl ratio screen 5.07
[2025-03-12 12:58] LABS: ALB/GLOB Ratio 1.5 RATIO (0.9-2.4); AST(SGOT) 15 U/L (<=37); Alanine Aminotransfer ALT/SGPT < 5 U/L (<=46); Albumin, Serum 4.1 g/dL (3.5-5.0); Alkaline Phosphatase 69 U/L (40-129); Anion Gap 11 (5-15); BUN 14 mg/dL (4-19); BUN/Creat Ratio 15.1 RATIO (10-20); Calcium,Total 9.3 mg/dL (7.6-11.0); Chloride 104 mmol/L (98-108); Creatinine, Serum 0.91 mg/dL (0.70-1.20); EST Glomerular Filtration Rate 102 (>60); Globulin 2.7 g/dL (2.2-4.2); Glucose 101 mg/dL (70-99); Potassium 4.4 mmol/L (3.3-5.1); Protein, Total 6.8 g/dL (5.9-8.4); Sodium Level 139 mmol/L (133-145); Total Bilirubin 0.49 mg/dL (0.00-1.30)
== END | disposition home or self-care (01) ==
LOC: BIMLAB 11:29
PROVIDERS: PCP Internal Medicine; Referring Provider Internal Medicine; Visit Provider Internal Medicine
DX: I10 Essential (primary) hypertension (principal); E11.69 Type 2 diabetes mellitus with other specified complication; Z79.4 Long term (current) use of insulin
CPT/HCPCS: 36415; 80053; 80061